=== PATIENT | female | born 1930 | race Caucasian/White ===

== ENCOUNTER 2016-06-25 10:24 | Inpatient (IN) | payer OTHER, BC ==
[2016-06-25] MEDS ORDERED: morphine CARPU-JECT 4 MG/1 ML DISP.SYRIN IVPUSH ONE (10:59)
[2016-06-25] MEDS ORDERED: ONDANSETRON 4 MG/2 ML VIAL IVPUSH ONE (10:59)
[2016-06-25 11:17] LABS: BASOPHIL 0.7 % (0-2.0); EOSINOPHIL 0.4 % (0-4.5); MCH 33.5 pg (25.7-33.7); MCHC 33.3 g/dl (32.0-36.0); MEAN CELL VOLUME 100.6 fl (80-96); MEAN PLT VOLUME 8.2 fl (7.5-11.1); NEUTROPHILS 80.5 % (42.8-82.8); PLATELET COUNT 136 K/MM3 (134-434); RDW 14.7 % (11.6-15.6); WHITE BLOOD COUNT 11.5 K/mm3 (4.0-10.0)
[2016-06-25] MEDS ORDERED: morphine CARPU-JECT 4 MG/1 ML DISP.SYRIN ONE ×2 (11:20→15:47)
[2016-06-25] MEDS ORDERED: ONDANSETRON 4 MG/2 ML VIAL ONE (11:21)
[2016-06-25 11:24] LABS: URINE APPEARANCE SLCLOUDY; URINE BILIRUBIN NEGATIVE (NEGATIVE); URINE BLOOD NEGATIVE (NEGATIVE); URINE COLOR YELLOW; URINE GLUCOSE (UA) NEGATIVE (NEGATIVE); URINE KETONE NEGATIVE (NEGATIVE); URINE LEUK ESTERASE NEGATIVE (NEGATIVE); URINE NITRITE NEGATIVE (NEGATIVE); URINE UROBILINOGEN NEGATIVE E.U./dl (0.2-1.0)
[2016-06-25 11:27] LABS: URINE PROTEIN 3+ (NEGATIVE)
[2016-06-25 11:32] LABS: GRANULAR CASTS 1 /lpf; URINE HYALINE CAST 4 /lpf; URINE MUCUS RARE; URINE RBC 2 /hpf (0-3); URINE WBC 3 /hpf (3-5)
[2016-06-25 11:32] LABS: INR 1.12 (0.82-1.09); PROTHROMBIN TIME (PATIENT) 12.4 SEC (9.98-11.88)
[2016-06-25 11:44] LABS: CREATININE 1.6 mg/dL (0.55-1.02)
[2016-06-25 11:45] LABS: ALBUMIN 3.9 g/dl (3.4-5.0); BILIRUBIN,TOTAL 0.8 mg/dL (0.2-1.0); CALCIUM 8.7 mg/dL (8.5-10.1); TOT PROT 7.8 g/dl (6.4-8.2)
--- NOTE | 2016-06-25 12:24 | PDOC ---
History of Present Illness - General History Source: Patient Exam Limitations: No Limitations - History of Present Illness Initial Comments: 06/25/16 12:25 The pt is an 83 y/o female with a significant PMHx of ASHD, s/p PCI with (3) stents hypothyroidism, hypercholesterolemia, and HTN who presents to the ED s/p mechanical fall with left leg pain. As per son the patient did not answer the door this morning when he rang, once he came into the house she was complaining of left sided pain near the hip or femur. As per patient she is complaining of left leg pain. She states that she is unable to move her left leg or move the left foot. She denies any LOC or head trauma. As per son the patient was supposed to be taken of Plavix but he is unsure if she is still taking it. Allergies: penicillins Social hx: former smoker (quit 15 year ago), no alcohol use, no illicit drug use. PCP - Dr. Torres <Freida Dooley - Last Filed: 06/25/16 13:07> <Tuan Cagle - Last Filed: 08/07/16 09:51> - General Chief Complaint: Injury Stated Complaint: FALL Time Seen by Provider: 06/25/16 10:55 Past History <Freida Dooley - Last Filed: 06/25/16 13:07> - Past Medical History Anemia: Yes Cardiac Disorders: Yes HTN: Yes Hypercholesterolemia: Yes Thyroid Disease: Yes (hypothyroidism) - Surgical History Appendectomy: Yes Cardiac Surgery: Yes (stents x 3) - Immunization History Immunization Up to Date: Yes - Psycho/Social/Smoking Cessation Hx Anxiety: No Suicidal Ideation: No Smoking Status: No Smoking History: Never smoked Have you smoked in the past 12 months: No Number of Cigarettes Smoked Daily: 0 Hx Alcohol Use: No Drug/Substance Use Hx: No Substance Use Type: None Hx Substance Use Treatment: No <Tuan Cagle - Last Filed: 08/07/16 09:51> - Past Medical History Allergies/Adverse Reactions: Allergies Allergy/AdvReac Type Severity Reaction Status Date / Time Penicillins Allergy Verified 06/25/16 10:39 Home Medications: Ambulatory Orders Acetaminophen [Tylenol .Regular Strength -] 650 mg PO Q6H PRN #0 tablet Aspirin Coated [Ecotrin -] 81 mg PO DAILY tablet.ec 07/04/16 Calcium 500Mg/Vit-D 200 Units [Os-Yvon 500+D -] 1 tab PO BID tab 07/04/16 Docusate Sodium [Colace -] 100 mg PO TID capsule 07/04/16 Enoxaparin [Lovenox -] 40 mg SQ DAILY disp.syrin 07/04/16 Ferrous Sulfate [Feosol] 325 mg PO BID ud 07/04/16 Magnesium Hydrox 2400MG/30Ml [Milk of Magnesia -] 30 ml PO DAILY PRN #0 cup Metoprolol Succinate [Toprol XL -] 50 mg PO DAILY tab.sr.24h 07/04/16 Oxycodone HCl [Roxicodone -] 5 mg PO Q6H PRN #60 tablet MDD 4 07/04/16 Rosuvastatin [Crestor -] 10 mg PO HS tablet 07/04/16 Review of Systems - Review of Systems Able to Perform ROS?: Yes Comments:: 06/25/16 12:25 GENERAL/CONSTITUTIONAL: No fever or chills. No weakness. HEAD, EYES, EARS, NOSE AND THROAT: No change in vision. No ear pain or discharge. No sore throat. CARDIOVASCULAR: No chest pain or shortness of breath. RESPIRATORY: No cough, wheezing, or hemoptysis. GASTROINTESTINAL: No nausea, vomiting, diarrhea or constipation. GENITOURINARY: No dysuria, frequency, or change in urination. MUSCULOSKELETAL: +left hip pain. No joint or muscle swelling or pain. No neck or back pain. SKIN: No rash NEUROLOGIC: No headache, vertigo, loss of consciousness, or change in strength/ sensation. ENDOCRINE: No increased thirst. No abnormal weight change. HEMATOLOGIC/LYMPHATIC: No anemia, easy bleeding, or history of blood clots. ALLERGIC/IMMUNOLOGIC: No hives or skin allergy. <Freida Dooley - Last Filed: 06/25/16 13:07> *Physical Exam - Vital Signs Last Vital Signs Temp Pulse Resp BP Pulse Ox 98.7 F 76 18 137/82 94 L 06/25/16 10:44 06/25/16 10:44 06/25/16 10:44 06/25/16 10:44 06/25/16 10:44 - Physical Exam Comments: 06/25/16 12:25 GENERAL: Awake, alert, and fully oriented, in no acute distress HEAD: No signs of trauma EYES: PERRLA, EOMI, sclera anicteric, conjunctiva clear ENT: Auricles normal inspection, hearing grossly normal, nares patent, oropharynx clear without exudates. Moist mucosa NECK: Normal ROM, supple, no lymphadenopathy, JVD, or masses LUNGS: Breath sounds equal, clear to auscultation bilaterally. No wheezes, and no crackles HEART: Regular rate and rhythm, normal S1 and S2, no murmurs, rubs or gallops ABDOMEN: Soft, nontender, normoactive bowel sounds. No guarding, no rebound. No masses EXTREMITIES: +Decreased ROM of the LLE. +tenderness on palpation over the left hip. Normal range of motion of the RLE, no edema. No clubbing or cyanosis. No cords, erythema NEUROLOGICAL: Cranial nerves II through XII grossly intact. Normal speech, normal gait SKIN: Warm, Dry, normal turgor, no rashes or lesions noted. <Freida Dooley - Last Filed: 06/25/16 13:07> - Vital Signs Last Vital Signs Temp Pulse Resp BP Pulse Ox 98.7 F 76 18 137/82 94 L 06/25/16 10:44 06/25/16 10:44 06/25/16 10:44 06/25/16 10:44 06/25/16 10:44 <Tuan Cagle - Last Filed: 08/07/16 09:51> Heart Score/ECG Review #1 06/25/16 12:[address] Cagle Impression: Normal sinus rhythm Normal rate Normal axis Normal EKG Vent rate 73 bpm <Freida Dooley - Last Filed: 06/25/16 13:07> ED Treatment Course - LABORATORY CBC & Chemistry Diagram: 06/25/16 11:10 06/25/16 11:10 - ADDITIONAL ORDERS Additional order review: Laboratory Results 06/25/16 06/25/16 06/25/16 11:10 11:10 11:10 INR 1.12 Sodium 144 Potassium 3.8 Chloride 106 Carbon Dioxide 21 Anion Gap 17 H BUN 34 H Creatinine 1.6 H Creat Clearance w eGFR 30.63 Random Glucose 130 H D Calcium 8.7 Total Bilirubin 0.8 AST 26 D ALT 20 D Alkaline Phosphatase 79 Total Protein 7.8 Albumin 3.9 D Urine Color Urine Appearance Urine pH Ur Specific [place] Urine Protein Urine Glucose (UA) Urine Ketones Urine Blood Urine Nitrite Urine Bilirubin Urine Urobilinogen Ur Leukocyte Esterase Urine RBC Urine WBC Amorphous Urates Hyaline Casts Granular Casts Urine Mucus Blood Type O POSITIVE Antibody Screen Negative 06/25/16 10:47 INR Sodium Potassium Chloride Carbon Dioxide Anion Gap BUN Creatinine Creat Clearance w eGFR Random Glucose Calcium Total Bilirubin AST ALT Alkaline Phosphatase Total Protein Albumin Urine Color Yellow Urine Appearance Slcloudy Urine pH 5.0 Ur Specific [place] 1.017 Urine Protein 3+ H D Urine Glucose (UA) Negative Urine Ketones Negative Urine Blood Negative Urine Nitrite Negative Urine Bilirubin Negative Urine Urobilinogen Negative Ur Leukocyte Esterase Negative Urine RBC 2 Urine WBC 3 Amorphous Urates Few Hyaline Casts 4 Granular Casts 1 Urine Mucus Rare Blood Type Antibody Screen 06/25/16 11:10 RBC 3.18 L MCV 100.6 H MCHC 33.3 RDW 14.7 MPV 8.2 Neutrophils % 80.5 D Lymphocytes % 14.3 D Monocytes % 4.1 Eosinophils % 0.4 D Basophils % 0.7 - Medications Given in the ED: ED Medications Discontinued Medications Generic Name Dose Route Start Last Admin Trade Name Freq PRN Reason Stop Dose Admin Morphine Sulfate 4 mg 06/25/16 10:59 06/25/16 11:28 Morphine Injection - IVPUSH 06/25/16 11:00 4 mg ONCE ONE Administration Ondansetron HCl 4 mg 06/25/16 10:59 06/25/16 11:28 Zofran Injection IVPUSH 06/25/16 11:00 4 mg ONCE ONE Administration <Freida Dooley - Last Filed: 06/25/16 13:07> - LABORATORY CBC & Chemistry Diagram: 07/04/16 05:38 07/04/16 05:38 - ADDITIONAL ORDERS Additional order review: Laboratory Results 06/25/16 06/25/16 06/25/16 11:10 11:10 11:10 INR 1.12 Sodium 144 Potassium 3.8 Chloride 106 Carbon Dioxide 21 Anion Gap 17 H BUN 34 H Creatinine 1.6 H Creat Clearance w eGFR 30.63 Random Glucose 130 H D Calcium 8.7 Total Bilirubin 0.8 AST 26 D ALT 20 D Alkaline Phosphatase 79 Total Protein 7.8 Albumin 3.9 D Urine Color Urine Appearance Urine pH Ur Specific [place] Urine Protein Urine Glucose (UA) Urine Ketones Urine Blood Urine Nitrite Urine Bilirubin Urine Urobilinogen Ur Leukocyte Esterase Urine RBC Urine WBC Amorphous Urates Hyaline Casts Granular Casts Urine Mucus Blood Type O POSITIVE Antibody Screen Negative 06/25/16 10:47 INR Sodium Potassium Chloride Carbon Dioxide Anion Gap BUN Creatinine Creat Clearance w eGFR Random Glucose Calcium Total Bilirubin AST ALT Alkaline Phosphatase Total Protein Albumin Urine Color Yellow Urine Appearance Slcloudy Urine pH 5.0 Ur Specific [place] 1.017 Urine Protein 3+ H D Urine Glucose (UA) Negative Urine Ketones Negative Urine Blood Negative Urine Nitrite Negative Urine Bilirubin Negative Urine Urobilinogen Negative Ur Leukocyte Esterase Negative Urine RBC 2 Urine WBC 3 Amorphous Urates Few Hyaline Casts 4 Granular Casts 1 Urine Mucus Rare Blood Type Antibody Screen 06/25/16 11:10 RBC 3.18 L MCV 100.6 H MCHC 33.3 RDW 14.7 MPV 8.2 Neutrophils % 80.5 D Lymphocytes % 14.3 D Monocytes % 4.1 Eosinophils % 0.4 D Basophils % 0.7 - RADIOLOGY Radiology Studies Ordered: Category Date Time Status CHEST PA & LAT [RAD] Stat Radiology 06/25/16 10:47 Completed HIP & PELVIS-LEFT [RAD] Stat Radiology 06/25/16 10:49 Completed - Medications Given in the ED: ED Medications Discontinued Medications Generic Name Dose Route Start Last Admin Trade Name Freq PRN Reason Stop Dose Admin Morphine Sulfate 4 mg 06/25/16 10:59 06/25/16 11:28 Morphine Injection - IVPUSH 06/25/16 11:00 4 mg ONCE ONE Administration Ondansetron HCl 4 mg 06/25/16 10:59 06/25/16 11:28 Zofran Injection IVPUSH 06/25/16 11:00 4 mg ONCE ONE Administration <Tuan Cagle - Last Filed: 08/07/16 09:51> Medical Decision Making - Medical Decision Making 06/25/16 12:26 Patient is a 83 year old female with pmhx of ASHD, s/p PCI with (3) stents hypothyroidism, hypercholesterolemia, and HTN who presents to the ED with left hip pain. Will order hip XRAY, CXR, type and screen, blood work with INR, EKG. Will reassess. Contacted [facility], case discussed with Dr. Cook. 06/25/16 12:40 A call was placed to Dr. Arnaldo Torres. Case was discussed. Dr. Torres noted that he has not seen the patient since 2014, but will be happy to admit the patient to the [facility] and asked that Dr. Harman is contacted. 06/25/16 13:03 Dr. Harman was contacted at his office. Case was discussed. As per Dr. Harman, he notes that the patient has history of hypertension, 3 stents, and hld. He notes that he has not seen the patient for a year since she has been house bound. As per Dr. Harman, he feels that she can go to surgery today and does not need any special clearance since her labs and EKG was normal. <Freida Dooley - Last Filed: 06/25/16 13:07> *DC/Admit/Observation/Transfer <Freida Dooley - Last Filed: 06/25/16 13:07> - Attestations Physician Attestion: 06/25/16 12:24 I, Dr. Tuan Cagle, attest that this document has been prepared under my direction and personally reviewed by me in its entirety. I further attest, that it accurately reflects all work, treatment, procedures and medical decision -making performed by me. <Tuan Cagle - Last Filed: 08/07/16 09:51> Diagnosis at time of Disposition: admissions Fracture of left hip Qualifiers: Encounter type: initial encounter Fracture type: closed Qualified Code(s): S72.002A - Fracture of unspecified part of neck of left femur, initial encounter for closed fracture - Discharge Dispostion Disposition: [facility] FACILITY Condition at time of disposition: Fair - Referrals
[2016-06-25] MEDS ORDERED: ONDANSETRON 4 MG/2 ML VIAL IVPB PRN (14:46)
[2016-06-25] MEDS ORDERED: DEXTROSE 5%-NORMAL SALINE 1,000 ML IV SCH (15:00)
[2016-06-25 15:30] VITALS: BMI 21.2
--- NOTE | 2016-06-25 16:05 | CON.CARD ---
Cardiology Consult (text) - Consultation Consultation Note: cc: fracture hpi: 85 f hx htn, hld, hypothyroid, ckd, cad s/p 4 pci's (last was approx > 5 yrs ago), here with LE fracture. Patient states she had mechanical fall. Remembers event, no presyncope/ syncope. Poor functional status. Patient no longer able to walk up stairs in home 2/2 OA /pain and weakness. Walks from one room to the next without symptoms. No cp, angina, sob, palps, dizzy, loc, pnd, orthopnea, + chronic LE edema, stable. Denies h/o DM, CVA/TIA, CHF. cardio: Dr. Harman pmh: per hpi psh: non contrib social: no tobacco, etoh or illicits. ros: per hpi. additionally no f/c/s, n/v/d, h/a, cough, congestion, rashes. fam: non contrib meds: Ambulatory Orders Rosuvastatin Calcium [Crestor] 10 mg PO DAILY 05/09/12 Nifedipine ER [Procardia XL -] 60 mg PO DAILY #30 tab.er.24 04/18/14 Furosemide [Lasix] 80 mg PO DAILY 06/25/16 Metoprolol Tartrate [Lopressor -] 50 mg PO DAILY 06/25/16 Potassium Chloride 20 meq PO DAILY 06/25/16 Current Medications Dextrose/Sodium Chloride (D5-Ns -) 1,000 mls @ 65 mls/hr IV ASDIR TYLER Morphine Sulfate (Morphine Injection -) 4 mg IVPUSH Q3H PRN PRN Reason: PAIN Ondansetron HCl (Zofran Injection) 4 mg IVPB Q8H PRN PRN Reason: NAUSEA Vital Signs - 24 hr 06/25/16 06/25/16 10:44 15:05 Temperature 98.7 F Pulse Rate 76 77 Respiratory 18 18 Rate Blood Pressure 137/82 145/69 O2 Sat by Pulse 94 L Oximetry (%) Intake & Output 06/23/16 06/24/16 06/25/16 06/26/16 07:59 07:59 07:59 07:59 Output Total 150 Balance -150 Weight 120 lb nad, calm no jvd rrr s1 s2 2/6 murmur at usb cta b/l, nl eff aaox3 trace le edema. no c/c abd nt nd pos bs pos dp/pt, no carotid bruits no diaphoresis/jaundice CBC, BMP 06/25/16 11:10 06/25/16 11:10 Laboratory Tests 04/18/14 06/25/16 06/25/16 06:00 11:10 11:10 INR 1.12 Creatinine 1.7 H Total Bilirubin 0.8 AST 26 D ALT 20 D Alkaline Phosphatase 79 Albumin 3.9 D cxr: clear lungs ec04/16/14: nsr, nl intervals, non-specific t wave flattening in inferior and lateral leads in comparison to priors. a/p: 85 f hx htn, hld, hypothyroid, ckd, cad s/p 4 pci's (last was approx > 5 yrs ago ), here with LE fracture. Intertrochanteric fracture/Pre-operative clearance - No active cardiac issues/sx's. Murmur at sternal border, but no signs of symptomatic or decompensated valvular disease. No further CV testing needed prior to surgery. RCRI 1, but with low functional capacity. Patient with low- intermediate risk of CV complications. Patient counseled on risk. - Con't ASA if possible drake-operatively, but ok to hold if needed. - Patient on lasix 80 mg/day as outpatient. Minimize IVF when possible. Close monitoring of volume status and reevaluation of need to resume po lasix. daily weights, bmp. cad s/p remote pci: - No signs of acs, no angina. - ASA if safe per surgery. htn: - bp well controlled off of anti-hypertensives. Con't to monitor. If bp elevated would reinitiate metoprolol first hld: - con't outpatient crestor.
[2016-06-25] MEDS: morphine CARPU-JECT 4 MG/1 ML DISP.SYRIN IVPUSH PRN ×2 (16:20→21:39)
--- NOTE | 2016-06-25 20:14 | HP ---
Admitting History and Physical - Primary Care Physician PCP: Arnaldo Torres - Admission Chief Complaint: Left hip pain History of Present Illness: Pt came to ER with left hip pain. Pt states that was walking out from the bathroom and fell, not sure why; pt states that had no CP, palpitations, dizziness, syncope before or after fall. After fall pt couldn't move secondary to pain; her son was home and brought her to ER where it was noticed to have left hip fracture. Pt was kept initially NPO for possible surgery; in the evening decision was made for surgery tomorrow. Pt didn't come to see me in the office for almost 2 years( she states that felt good and didn't the need to come to my office) but she saw Dr. Corey ( Cardio) every 3 to 4 months. - Past Medical History Cardiovascular: Yes: CAD (s/p PCI w stents), HTN, Hyperlipdemia Endocrine: Yes: Hypothyroidism - Smoking History Smoking history: Never smoked Have you smoked in the past 12 months: No Aproximately how many cigarettes per day: 0 - Alcohol/Substance Use Hx Alcohol Use: No Home Medications - Allergies Allergies/Adverse Reactions: Allergies Allergy/AdvReac Type Severity Reaction Status Date / Time Penicillins Allergy Verified 06/25/16 10:39 - Home Medications Home Medications: Ambulatory Orders RX: Rosuvastatin Calcium [Crestor] 10 mg PO DAILY 05/09/12 RX: Nifedipine ER [Procardia XL -] 60 mg PO DAILY #30 tab.er.24 04/18/14 Furosemide [Lasix] 80 mg PO DAILY 06/25/16 RX: Metoprolol Tartrate [Lopressor -] 50 mg PO DAILY 06/25/16 RX: Potassium Chloride 20 meq PO DAILY 06/25/16 Review of Systems - Review of Systems Constitutional: denies: Chills, Fever, Night Sweats, Weakness Eyes: denies: Blind Spots, Blurred Vision, Double Vision HENT: denies: Ear Discharge, Nasal Congestion, Throat Pain Neck: denies: Pain on Movement, Stiffness Cardiovascular: denies: Chest Pain, Edema, Palpitations, Shortness of Breath Respiratory: denies: Cough, SOB, Wheezing Gastrointestinal: denies: Abdominal Pain, Constipation, Diarrhea, Nausea, Vomiting Genitourinary: denies: Burning, Discharge, Dysuria, Frequency Musculoskeletal: reports: Extremity Pain (left leg). denies: Back Pain Neurological: denies: Change in LOC, Dizziness, Headache, Numbness, Parasthesia Endocrine: denies: Excessive Sweating, Intolerance to Cold Hematology/Lymphatic: denies: Easily Bruised, Excessive Bleeding Psychiatric: denies: Anxiety, Depression Physical Examination Vital Signs: Vital Signs Temperature 98.1 F 06/25/16 17:10 Pulse Rate 78 06/25/16 19:40 Respiratory Rate 18 06/25/16 19:40 Blood Pressure 142/71 06/25/16 19:40 O2 Sat by Pulse Oximetry (%) 96 06/25/16 19:40 Constitutional: No: No Distress, Calm, Mild Distress Eyes: No: Conjunctiva Clear, EOM Intact, PERRL HENT: No: Drooling, Pharyngeal Erythema, Rhinnorhea Neck: No: Trachea Midline, Lymphadenopathy Cardiovascular: Yes: Murmur. No: Regular Rate and Rhythm, S1, S2 Respiratory: Yes: Regular, Rales (scaterred, maily at bases). No: Wheezes Gastrointestinal: Yes: Soft. No: Normal Bowel Sounds, Hepatomegaly, Palpable Mass, Tenderness ...Rectal Exam: Yes: Deferred Breast(s): Yes: Other (deffered) Musculoskeletal: Yes: Other (Left leg is flexed and internal rotated, cannot moveit secondary to pain.). No: Back Pain Edema: Yes Edema: LLE: Trace, RLE: Trace Integumentary: No: Rash, Skin Tear Neurological: Yes: Alert, Oriented, Other (motor and sensory is symmetric in UE / LE/ Face) Psychiatric: Yes: Alert, Oriented Imaging - Results Chest X-ray: Report Reviewed X-ray: Report Reviewed Problem List - Problems (1) Fracture of hip, left, closed Assessment/Plan: Ortho consult Cardio consult for clearance. Code(s): S72.002A - FRACTURE OF UNSP PART OF NECK OF LEFT FEMUR, INIT (2) CAD S/P percutaneous coronary angioplasty Assessment/Plan: s/p PCI with stents. Cardio consult for clearance Code(s): I25.10 - ATHSCL HEART DISEASE OF [place] CORONARY ARTERY W/O ANG PCTRS Z98.61 - CORONARY ANGIOPLASTY STATUS (3) HTN (hypertension) Assessment/Plan: cont meds Code(s): I10 - ESSENTIAL (PRIMARY) HYPERTENSION (4) Hyperlipidemia Assessment/Plan: cont meds Code(s): E78.5 - HYPERLIPIDEMIA, UNSPECIFIED (5) Renal artery stenosis Assessment/Plan: s/p stenting Code(s): I70.1 - ATHEROSCLEROSIS OF RENAL ARTERY Assessment/Plan AM labs
[2016-06-25] MEDS ORDERED: ROSUVASTATIN CA 10 MG TABLET (FP) PO SCH (22:00)
--- NOTE | 2016-06-26 00:22 | EKG ---
Test Reason : Blood Pressure : / mmHG Vent. Rate : 073 BPM Atrial Rate : 073 BPM P-R Int : 164 ms QRS Dur : 078 ms QT Int : 384 ms P-R-T Axes : 034 046 101 degrees QTc Int : 423 ms NORMAL SINUS RHYTHM CANNOT RULE OUT ANTERIOR INFARCT , AGE UNDETERMINED ABNORMAL ECG WHEN COMPARED WITH ECG OF 16-APR-2014 20:13, T WAVE VARIATION Confirmed by JOHN SEPULVEDA MD ([id number]) on 06/26/2016 12:22:09 AM Referred By: Confirmed By:JOHN SEPULVEDA MD
[2016-06-26 07:34] LABS: MCH 34.3 pg (25.7-33.7); MCHC 33.9 g/dl (32.0-36.0); MEAN CELL VOLUME 101.1 fl (80-96); MEAN PLT VOLUME 8.5 fl (7.5-11.1); PLATELET COUNT 100 K/MM3 (134-434); RDW 14.8 % (11.6-15.6); WHITE BLOOD COUNT 6.7 K/mm3 (4.0-10.0)
--- NOTE | 2016-06-26 07:43 | CON.ORTH ---
Consult Consult Specialty:: orthopedics Referred by:: ER Reason for Consultation:: Left hip pain - History of Present Illness Chief Complaint: Left hip pain History of Present Illness: 85y F c/o L hip pain after fall -states she just fell over, no syncopal symptoms -cannot move -BIBEMS to ER -no pain elsewhere -no radicular symptoms -no previous injuries to this hip -pain worse with any motion -improved at rest - History Source History Provided By: Patient, Medical Record Limitations to Obtaining History: No Limitations - Past Medical History Cardio/Vascular: Yes: CAD (s/p PCI w stents), HTN, Hyperlipdemia Endocrine: Yes: Hypothyroidism - Alcohol/Substance Use Hx Alcohol Use: No - Smoking History Smoking history: Never smoked Have you smoked in the past 12 months: No Aproximately how many cigarettes per day: 0 Home Medications - Allergies Allergies/Adverse Reactions: Allergies Allergy/AdvReac Type Severity Reaction Status Date / Time Penicillins Allergy Verified 06/25/16 10:39 - Home Medications Home Medications: Ambulatory Orders Rosuvastatin Calcium [Crestor] 10 mg PO DAILY 05/09/12 Nifedipine ER [Procardia XL -] 60 mg PO DAILY #30 tab.er.24 04/18/14 Furosemide [Lasix] 80 mg PO DAILY 06/25/16 Metoprolol Tartrate [Lopressor -] 50 mg PO DAILY 06/25/16 Potassium Chloride 20 meq PO DAILY 06/25/16 Physical Exam for Ortho Vital Signs: Vital Signs Temperature 98.1 F 06/26/16 06:00 Pulse Rate 75 06/26/16 06:00 Respiratory Rate 18 06/26/16 06:00 Blood Pressure 137/63 06/26/16 06:00 O2 Sat by Pulse Oximetry (%) 96 06/25/16 21:00 Constitutional: Yes: Well Nourished, No Distress, Calm Cardiovascular: Yes: Regular Rate and Rhythm Respiratory: Yes: Regular Extremities: No: Calf Tenderness, Cold, Cool, Cyanosis Integumentary: Yes: WNL Neurological: Yes: Alert, Oriented Labs: INR, PTT INR 1.12 (0.82-1.09) 06/25/16 11:10 - Lower Extremity Hip: Yes: Left, Leg Externally Rotated, Leg Shortened, Pain. No: Swelling Knee: Yes: Left. No: Pain, Swelling, Tenderness Ankle: Yes: Left. No: Pain, Swelling, Tenderness - Affected Extremity Motor Strength: 5/5: Left Leg (ehl fhl ta g s) Peripheral Pulses: 1+ Left Doralis Pedis Neuro/Vascular Assessment: Yes: Warm, [place], Normal Sensation Imaging - Results X-ray: Report Reviewed, Image Reviewed (Displaced L IT fx) Problem List - Problems (1) Fracture of hip, left, closed Code(s): S72.002A - FRACTURE OF UNSP PART OF NECK OF LEFT FEMUR, INIT Qualifiers: Encounter type: initial encounter Qualified Code(s): S72.002A - Fracture of unspecified part of neck of left femur, initial encounter for closed fracture Assessment/Plan I reviewed today's findings with the pt -advised she has a displaced hip fx -reviewed option nonop care: bedrest, bedsores, PNA, DVT, deformity, unlikely to walk again -recommend op care with IM nail -op risks reviewed: bleeding, infection, neurovascular injury, need for further surgery, post op pain, stiffness, malunion, nonunion, hardware failure or cutout , heart attack, stroke, DVT, PE, and more -reviewed periop use of abx, DVT proph, PT -addressed pts questions -electing to proceed -will be scheduled for tomorrow
[2016-06-26 07:56] LABS: CALCIUM 8.7 mg/dL (8.5-10.1); CREATININE 1.4 mg/dL (0.55-1.02)
[2016-06-26] MEDS ORDERED: NIFEdipine E.R 60 MG TABLET (UD) PO SCH (10:00)
[2016-06-26] MEDS ORDERED: METOPROLOL TARTRATE 50 MG TABLET (FP) PO SCH (10:00)
[2016-06-26] MEDS ORDERED: FUROSEMIDE 40 MG TABLET (FP) PO SCH (10:00)
[2016-06-26] MEDS ORDERED: POTASSIUM CHLORIDE TABS 20 MEQ TABLET.ER (FP) PO SCH (10:00)
--- NOTE | 2016-06-26 10:02 | PN ---
Progress Note, Physician History of Present Illness: Pt. w/o CP, SOB, palp., dizziness; pt' left leg pain 05/29 - Current Medication List Current Medications: Active Medications Furosemide (Lasix -) 80 mg PO DAILY [facility] Last Admin: 06/26/16 09:19 Dose: Not Given Metoprolol Tartrate (Lopressor -) 50 mg PO DAILY [facility] Last Admin: 06/26/16 09:21 Dose: 50 mg Morphine Sulfate (Morphine Injection -) 4 mg IVPUSH Q3H PRN PRN Reason: PAIN Last Admin: 06/25/16 21:39 Dose: 4 mg Nifedipine (Procardia Xl -) 60 mg PO DAILY [facility] Last Admin: 06/26/16 09:19 Dose: Not Given Ondansetron HCl (Zofran Injection) 4 mg IVPB Q8H PRN PRN Reason: NAUSEA Potassium Chloride (K-Dur -) 20 meq PO DAILY [facility] Last Admin: 06/26/16 09:19 Dose: Not Given Rosuvastatin Calcium (Crestor -) 10 mg PO HS [facility] Last Admin: 06/25/16 21:37 Dose: 10 mg - Objective Vital Signs: Vital Signs Temperature 98.1 F 06/26/16 06:00 Pulse Rate 75 06/26/16 06:00 Respiratory Rate 18 06/26/16 06:00 Blood Pressure 137/63 06/26/16 06:00 O2 Sat by Pulse Oximetry (%) 96 06/25/16 21:00 Constitutional: Yes: No Distress, Calm Cardiovascular: Yes: Regular Rate and Rhythm, S1, S2 Respiratory: Yes: Regular, CTA Bilaterally. No: Rales Gastrointestinal: Yes: Normal Bowel Sounds, Soft. No: Palpable Mass, Tenderness Edema: No Neurological: Yes: Alert, Oriented Labs: CBC, BMP 06/26/16 05:35 06/26/16 05:35 INR, PTT INR 1.12 (0.82-1.09) 06/25/16 11:10 Problem List - Problems (1) Fracture of hip, left, closed Assessment/Plan: Fracture secondary to fall- mechanical cause Ortho consult appreciated, for OR this afternoon Cardio consult appreciated. Code(s): S72.002A - FRACTURE OF UNSP PART OF NECK OF LEFT FEMUR, INIT Qualifiers: Encounter type: initial encounter Qualified Code(s): S72.002A - Fracture of unspecified part of neck of left femur, initial encounter for closed fracture (2) CAD S/P percutaneous coronary angioplasty Assessment/Plan: s/p PCI with stents. Cardio consult appreciated, pt was cleared for hip replacement. Code(s): I25.10 - ATHSCL HEART DISEASE OF [place] CORONARY ARTERY W/O ANG PCTRS Z98.61 - CORONARY ANGIOPLASTY STATUS (3) HTN (hypertension) Assessment/Plan: cont meds. controlled. Code(s): I10 - ESSENTIAL (PRIMARY) HYPERTENSION (4) Hyperlipidemia Assessment/Plan: on statin Code(s): E78.5 - HYPERLIPIDEMIA, UNSPECIFIED (5) Renal artery stenosis Assessment/Plan: s/p stent placement Code(s): I70.1 - ATHEROSCLEROSIS OF RENAL ARTERY (6) Chronic renal disease Code(s): N18.9 - CHRONIC KIDNEY DISEASE, UNSPECIFIED (7) Anemia Assessment/Plan: to monitor H/H Code(s): D64.9 - ANEMIA, UNSPECIFIED Assessment/Plan Pt.'s condition was reviewed with pt.'s son, all questions were reviewed. Pt is cleared for hip replacement. IVF while pt is NPO AM labs
[2016-06-26] MEDS ORDERED: DEXTROSE 5%-NORMAL SALINE 1,000 ML IV SCH ×2 (10:15→19:21)
[2016-06-26] MEDS ORDERED: MIDAZOLAM HCL 2 MG/2 ML SINGLE DOSE VIAL ONE ×2 (16:49)
[2016-06-26] MEDS ORDERED: ceFAZolin SODIUM 1 GM VIAL ONE (17:28)
[2016-06-26] MEDS ORDERED: ceFAZolin SODIUM 1 GM VIAL IVPB ONE (17:30)
[2016-06-26] MEDS ORDERED: MAGNESIUM HYDROX 2400MG/30ML ORAL SUSPENSION 30 ML CUP PO PRN (19:01)
[2016-06-26] MEDS ORDERED: OXYCODONE/APAP 5/325MG COMBO TABLET PO PRN (19:01)
--- NOTE | 2016-06-26 19:07 | OP ---
Operative Note - Note: Operative Date: 06/26/16 Pre-Operative Diagnosis: L IT Fx Operation: left hip intramedullary nail Implants: [employer]cted gamma 3 [id number], 105mm lag bolt, 2x 5mm distal locking bolts Surgeon: Dorian Cook Poultry Helper: Kateryna Gaines Anesthesiologist/WOOD INSPECTOR: Maria Luz Cole Anesthesia: Spinal Estimated Blood Loss (mls): 200 Operative Report Dictated: Yes
[2016-06-26] MEDS ORDERED: ONDANSETRON 4 MG/2 ML VIAL IVPB PRN (19:21)
[2016-06-26] MEDS ORDERED: morphine CARPU-JECT 2 MG/1 ML DISP.SYRIN IVPUSH PRN (19:21)
[2016-06-26 20:05] LABS: MCH 33.5 pg (25.7-33.7); MCHC 33.1 g/dl (32.0-36.0); MEAN CELL VOLUME 101.4 fl (80-96); MEAN PLT VOLUME 8.7 fl (7.5-11.1); PLATELET COUNT 105 K/MM3 (134-434); RDW 14.5 % (11.6-15.6); WHITE BLOOD COUNT 7.4 K/mm3 (4.0-10.0)
--- NOTE | 2016-06-26 20:53 | OP ---
DATE OF OPERATION: 06/26/2016 PREOPERATIVE DIAGNOSIS: Left intertrochanteric hip fracture. POSTOPERATIVE DIAGNOSIS: Left intertrochanteric hip fracture. PROCEDURE: Left intertrochanteric nailing. SURGEON: Dorian Cook MD SOX ANALYST: Kateryna Gaines PA-C. Her skilled surgical assistance was necessary for the safety and timely performance of this procedure. Ms. Gaines was able to provide retraction, assist in the insertion of orthopedic hardware, positioning of the patient, and reduction of the fracture. IMPLANT: Maribeth Gamma nail 380 x 10, 125-degree with 105-mm proximal lag bolt and 5-mm distal locking bolts. BLOOD LOSS: 200 mL. POSTOPERATIVE CONDITION: Stable. COMPLICATIONS: None. INDICATIONS: This is a pleasant woman who suffered a fall. She was medically optimized and quick for surgery. Prior to surgery, the risks, benefits, and alternatives were discussed in detail. The alternative of nonoperative management of prolonged bed rest was discussed and this may lead to multiple medical complications. Recommended is operative management with intramedullary nail. This would involve risks of bleeding, infection, neurovascular injury, need for further surgery, postoperative pain and stiffness, nonunion, malunion, hardware failure with cut out. We discussed medical risks such as heart attack, stroke, DVT, PE, or . I addressed the patient's and family's questions. They voiced their understanding and elected to proceed. PROCEDURE: The patient was brought to the operating room where spinal anesthesia was administered. She was placed onto the fracture table and carefully padded all bony prominences. The left lower extremity was then positioned in a position of adduction, internal rotation, and traction. Operative fluoroscopy radiographs demonstrated satisfactory reduction. Patient was prepped and draped in the usual sterile fashion. A preoperative dose of antibiotics was given. The usual timeout for the procedure was performed. At this point, a guidewire was placed percutaneously into the tip of the greater trochanter. The guidewire was advanced manually, noting that the bone was quite soft and did not require much resistance. The guidewire was placed into the anterior third and posterior two-thirds junction on lateral fluoroscopy and just medial to the greater trochanter on the AP. An incision was made about the guidewire. Soft tissue retractor was placed and the opening reamer was passed. The short guidewire was now removed. A long guidewire was now placed down the femoral shaft, to the level of the knee. The guidewire was measured and a 380-mm nail was chosen. The nail was once reamed using a size 11.5 reamer. The nail was now inserted down the femoral canal. Nail placement was confirmed fluoroscopically in 2 planes. The proximal jig was now lined up and small incision was made laterally. The trocar was passed down to the level of the bone. The guidewire was now passed somewhat inferiorly through the femoral neck and into the most central portion of the femoral neck as allowed by this nail. No 120-degree nails were available at this time. A satisfactory placement was achieved. The guidewire placement was verified in 2 planes fluoroscopically. The guidewire was now measured and then overreamed to 100 mm. The 105-mm lag bolt was chosen. The lag bolt was now inserted under fluoroscopic guidance. The set screw was placed and backed off a quarter-turn after tightening fully. The lag bolt was now toggled and was found to be locked into place with some toggle allowed. The entire construct was now examined fluoroscopically and was satisfactory. Attention was now turned distally. Here, perfect circles technique was used to locate the 2 distal holes. The skin was then incised over the holes. A drill bit was then used to make 2 passes through the bone. The more distal screw was placed first and the bone quality was extremely soft. Inadvertently, the medial skin was penetrated, but the skin had been prepped prior to the surgery. The drill bit was pulled out medially to ensure no contamination of the interior or the leg. A second drill bit was used to make a more proximal one. Both screws were then measured and inserted under fluoroscopic guidance in 2 planes. At this point, the entire construct was again examined fluoroscopically. Both fracture reduction and hardware placement were satisfactory. The wounds were irrigated. The deep tissue was approximated using 0 Vicryl. The subcutaneous tissue was approximated using 2-0 Vicryl. The skin was closed using 3-0 nylon. Sterile dressings were placed. The patient was transferred to the recovery room in stable condition. Bairon BANGURA/[id number]
[2016-06-26] MEDS: FERROUS SO4 325 MG TABLET (FP) PO SCH (22:02)
[2016-06-26] MEDS: DOCUSATE SODIUM 100 MG CAPSULE (FP) PO SCH (22:02)
[2016-06-26] MEDS: CALCIUM 500MG/VIT-D 200 UNITS COMBO TABLET (FP) PO SCH (22:02)
[2016-06-26] MEDS: ROSUVASTATIN CA 10 MG TABLET (FP) PO SCH (22:02)
[2016-06-27] MEDS: CEFAZOLIN (PRE-DOCKED) 50 ML IVPB SCH ×3 (01:35→18:23)
[2016-06-27] MEDS: DOCUSATE SODIUM 100 MG CAPSULE (FP) PO SCH ×3 (05:42→21:15)
[2016-06-27 07:39] LABS: MCH 29.8 pg (25.7-33.7); MCHC 33.4 g/dl (32.0-36.0); MEAN CELL VOLUME 89.4 fl (80-96); MEAN PLT VOLUME 8.4 fl (7.5-11.1); PLATELET COUNT 76 K/MM3 (134-434); RDW 27.5 % (11.6-15.6); WHITE BLOOD COUNT 8.1 K/mm3 (4.0-10.0)
[2016-06-27 08:08] LABS: CALCIUM 8.2 mg/dL (8.5-10.1); CREATININE 1.7 mg/dL (0.55-1.02)
[2016-06-27] MEDS: FUROSEMIDE 40 MG TABLET (FP) PO SCH (09:30)
--- NOTE | 2016-06-27 09:30 | PN ---
Progress Note, Physician History of Present Illness: Pt. w/o CP, SOB, palp., dizziness; pt' left groin pain with leg movements. Pt is s/p Left hip ORIF - Current Medication List Current Medications: Active Medications Acetaminophen (Tylenol -) 650 mg PO Q6H PRN PRN Reason: PAIN Acetaminophen (Tylenol -) 325 mg PO Q6H PRN PRN Reason: PAIN Calcium Carbonate/Cholecalciferol (Os-Yvon 500+D -) 1 tab PO BID [facility] Last Admin: 06/26/16 22:02 Dose: 1 tab Docusate Sodium (Colace -) 100 mg PO TID [facility] Last Admin: 06/27/16 05:42 Dose: 100 mg Enoxaparin Sodium (Lovenox -) 40 mg SQ DAILY [facility] Ferrous Sulfate (Feosol -) 325 mg PO BID [facility] Last Admin: 06/26/16 22:02 Dose: 325 mg Furosemide (Lasix -) 80 mg PO DAILY [facility] Cefazolin Sodium (Ancef 1gm Ivpb (Pre-Docked)) 50 mls @ 100 mls/hr IVPB Q8H-IV [facility] Stop: 06/28/16 00:59 Last Admin: 06/27/16 01:35 Dose: 100 mls/hr Dextrose/Sodium Chloride (D5-Ns -) 1,000 mls @ 42 mls/hr IV ASDIR [facility] Last Admin: 06/26/16 19:40 Dose: 42 mls/hr Magnesium Hydroxide (Milk Of Magnesia -) 30 ml PO DAILY PRN PRN Reason: CONSTIPATION Metoprolol Tartrate (Lopressor -) 50 mg PO DAILY [facility] Morphine Sulfate (Morphine Injection -) 2 mg IVPUSH Q3H PRN PRN Reason: PAIN Last Admin: 06/27/16 01:37 Dose: 2 mg Nifedipine (Procardia Xl -) 60 mg PO DAILY [facility] Ondansetron HCl (Zofran Injection) 4 mg IVPB Q8H PRN PRN Reason: NAUSEA Oxycodone HCl (Roxicodone -) 5 mg PO Q6H PRN PRN Reason: PAIN SCALE 1-5 Potassium Chloride (K-Dur -) 20 meq PO DAILY [facility] Rosuvastatin Calcium (Crestor -) 10 mg PO HS [facility] Last Admin: 06/26/16 22:02 Dose: 10 mg - Objective Vital Signs: Vital Signs Temperature 97.6 F 06/27/16 06:00 Pulse Rate 80 06/27/16 06:00 Respiratory Rate 20 06/27/16 06:00 Blood Pressure 113/55 06/27/16 06:00 O2 Sat by Pulse Oximetry (%) 98 06/26/16 21:05 Constitutional: Yes: No Distress, Calm Neck: Yes: Supple Cardiovascular: Yes: Regular Rate and Rhythm, S1, S2 Respiratory: Yes: Regular, Other (coarse at bases, atelectasis at bases) Gastrointestinal: Yes: Normal Bowel Sounds, Soft. No: Palpable Mass, Tenderness Edema: LLE: Trace Neurological: Yes: Alert, Oriented Labs: CBC, BMP 06/27/16 06:30 06/27/16 06:30 INR, PTT INR 1.12 (0.82-1.09) 06/25/16 11:10 Problem List - Problems (1) Fracture of hip, left, closed Assessment/Plan: Fracture secondary to fall- mechanical cause Ortho consult and f/u appreciated, s/p ORIF yesterday Cardio consult and f/u appreciated. Code(s): S72.002A - FRACTURE OF UNSP PART OF NECK OF LEFT FEMUR, INIT Qualifiers: Encounter type: initial encounter Qualified Code(s): S72.002A - Fracture of unspecified part of neck of left femur, initial encounter for closed fracture (2) CAD S/P percutaneous coronary angioplasty Assessment/Plan: s/p PCI with stents. Code(s): I25.10 - ATHSCL HEART DISEASE OF [place] CORONARY ARTERY W/O ANG PCTRS Z98.61 - CORONARY ANGIOPLASTY STATUS (3) HTN (hypertension) Assessment/Plan: cont meds. controlled. Code(s): I10 - ESSENTIAL (PRIMARY) HYPERTENSION (4) Hyperlipidemia Assessment/Plan: on statin Code(s): E78.5 - HYPERLIPIDEMIA, UNSPECIFIED (5) Renal artery stenosis Assessment/Plan: s/p stent placement Code(s): I70.1 - ATHEROSCLEROSIS OF RENAL ARTERY (6) Chronic renal disease Code(s): N18.9 - CHRONIC KIDNEY DISEASE, UNSPECIFIED (7) Anemia Assessment/Plan: to monitor H/H. Code(s): D64.9 - ANEMIA, UNSPECIFIED Assessment/Plan Pt.'s condition was d/w pt's nurse. Pt to restart PO intake; if tolerates PO to DC INIVF at noon AM labs
[2016-06-27] MEDS: FERROUS SO4 325 MG TABLET (FP) PO SCH ×2 (09:31→21:15)
[2016-06-27] MEDS: ENOXAPARIN NA (PORCINE) 40 MG/0.4 ML DISP.SYRIN SQ SCH (09:31)
[2016-06-27] MEDS: CALCIUM 500MG/VIT-D 200 UNITS COMBO TABLET (FP) PO SCH ×2 (09:31→21:15)
[2016-06-27] MEDS: NIFEdipine E.R 60 MG TABLET (UD) PO SCH (09:35)
[2016-06-27] MEDS ORDERED: PT OWN MED DRAWER 7, Y5N ONE (09:35)
[2016-06-27] MEDS ORDERED: POTASSIUM CHLORIDE TABS 20 MEQ TABLET.ER (FP) PO SCH (10:00)
[2016-06-27] MEDS ORDERED: METOPROLOL TARTRATE 50 MG TABLET (FP) PO SCH (10:00)
--- NOTE | 2016-06-27 13:59 | PN ---
Progress Note (short form) - Note Progress Note: Anesthesia Post op Pt seen and examined S:alert and awake O: Vital Signs Temperature 97.6 F 06/27/16 06:00 Pulse Rate 80 06/27/16 06:00 Respiratory Rate 20 06/27/16 06:00 Blood Pressure 113/55 06/27/16 06:00 O2 Sat by Pulse Oximetry (%) 98 06/26/16 21:05 CBC, BMP 06/27/16 06:30 06/27/16 06:30 A/P: Current Active Problems Anemia (Acute) CAD S/P percutaneous coronary angioplasty (Acute) Chronic renal disease (Acute) Fracture of hip, left, closed (Acute) HTN (hypertension) (Acute) Hyperlipidemia (Acute) Renal artery stenosis (Acute) s/p Gamma nail Doing well post op Continue current care Frank Denton MD
[2016-06-27] MEDS: oxyCODONE HCL 5 MG TABLET PO PRN (14:04)
--- NOTE | 2016-06-27 16:47 | PN ---
Progress Note (short form) - Note Progress Note: cc: fracture S: pain well controlled. no cp, palps, dizziness, sob. Current Medications Acetaminophen (Tylenol -) 650 mg PO Q6H PRN PRN Reason: PAIN Acetaminophen (Tylenol -) 325 mg PO Q6H PRN PRN Reason: PAIN Calcium Carbonate/Cholecalciferol (Os-Yvon 500+D -) 1 tab PO BID [facility] Last Admin: 06/27/16 09:31 Dose: 1 tab Docusate Sodium (Colace -) 100 mg PO TID [facility] Last Admin: 06/27/16 14:04 Dose: 100 mg Enoxaparin Sodium (Lovenox -) 40 mg SQ DAILY [facility] Last Admin: 06/27/16 09:31 Dose: 40 mg Ferrous Sulfate (Feosol -) 325 mg PO BID [facility] Last Admin: 06/27/16 09:31 Dose: 325 mg Furosemide (Lasix -) 80 mg PO DAILY [facility] Last Admin: 06/27/16 09:30 Dose: 80 mg Cefazolin Sodium (Ancef 1gm Ivpb (Pre-Docked)) 50 mls @ 100 mls/hr IVPB Q8H-IV [facility] Stop: 06/28/16 00:59 Last Admin: 06/27/16 09:30 Dose: 100 mls/hr Dextrose/Sodium Chloride (D5-Ns -) 1,000 mls @ 42 mls/hr IV ASDIR [facility] (not running) Last Admin: 06/26/16 19:40 Dose: 42 mls/hr Magnesium Hydroxide (Milk Of Magnesia -) 30 ml PO DAILY PRN PRN Reason: CONSTIPATION Metoprolol Tartrate (Lopressor -) 50 mg PO DAILY [facility] Last Admin: 06/27/16 09:30 Dose: 50 mg Morphine Sulfate (Morphine Injection -) 2 mg IVPUSH Q3H PRN PRN Reason: PAIN Last Admin: 06/27/16 01:37 Dose: 2 mg Nifedipine (Procardia Xl -) 60 mg PO DAILY [facility] Last Admin: 06/27/16 09:35 Dose: 60 mg Ondansetron HCl (Zofran Injection) 4 mg IVPB Q8H PRN PRN Reason: NAUSEA Oxycodone HCl (Roxicodone -) 5 mg PO Q6H PRN PRN Reason: PAIN SCALE 1-5 Last Admin: 06/27/16 14:04 Dose: 5 mg Potassium Chloride (K-Dur -) 20 meq PO DAILY [facility] Last Admin: 06/27/16 09:31 Dose: 20 meq Rosuvastatin Calcium (Crestor -) 10 mg PO HS [facility] Last Admin: 06/26/16 22:02 Dose: 10 mg Vital Signs - 24 hr 06/26/16 06/26/16 06/26/16 19:01 19:15 19:30 Temperature 97.4 F L Pulse Rate 92 H 88 88 Respiratory 16 16 18 Rate Blood Pressure 97/62 110/56 93/57 O2 Sat by Pulse 93 L 98 98 Oximetry (%) 06/26/16 06/26/16 06/26/16 19:45 20:00 20:15 Temperature Pulse Rate 93 H 85 83 Respiratory 18 18 16 Rate Blood Pressure 92/55 120/55 120/53 O2 Sat by Pulse 97 95 95 Oximetry (%) 06/26/16 06/26/16 06/26/16 20:30 21:00 21:05 Temperature 97.7 F 97.4 F L Pulse Rate 82 83 Respiratory 16 20 20 Rate Blood Pressure 105/84 134/63 O2 Sat by Pulse 95 98 98 Oximetry (%) 06/26/16 06/27/16 06/27/16 22:20 02:00 06:00 Temperature 97.4 F L 97.6 F 97.6 F Pulse Rate 83 64 80 Respiratory 20 20 20 Rate Blood Pressure 134/63 153/76 113/55 O2 Sat by Pulse Oximetry (%) 06/27/16 06/27/16 09:00 14:00 Temperature 97.7 F 98.3 F Pulse Rate 81 67 Respiratory 17 17 Rate Blood Pressure 137/65 O2 Sat by Pulse 97 Oximetry (%) Intake & Output 06/25/16 06/26/16 06/27/16 06/28/16 07:59 07:59 07:59 07:59 Intake Total 2100 600 Output Total 550 780 100 Balance -550 1320 500 Weight 120 lb nad, calm no jvd rrr s1 s2 2/6 murmur at usb bibasilar dullness, poor eff aaox3 no le edema. no c/c abd nt nd pos bs pos dp/pt, no carotid bruits no diaphoresis/jaundice aaox3 CBC, BMP 06/27/16 06:30 06/27/16 06:30 cxr: clear lungs ec04/16/14: nsr, nl intervals, non-specific t wave flattening in inferior and lateral leads in comparison to priors. a/p: 85 f hx htn, hld, hypothyroid, ckd, cad s/p 4 pci's (last was approx > 5 yrs ago ), here with LE fracture s/p repair with left hip intramedullary nail on 06/26. Intertrochanteric fracture/Pre-operative clearance - surgery 06/26 - No active cardiac issues/sx's. Murmur at sternal border, but no signs of symptomatic or decompensated valvular disease. No further CV testing recommended prior to surgery. RCRI 1, but with low functional capacity. Patient CV risk estimated as low-intermediate. - Resume ASA when OK per surgery - bp/hr well controlled. no signs of volume overload. Incentive spirometry. cad s/p remote pci: - No signs of acs, no angina. - ASA when safe per surgery, con't crestor. anti-anginals. htn: - bp well controlled. Would transition to long acting metoprolol. Con't nifedipine. Con't to monitor. hld: - con't outpatient crestor.
--- NOTE | 2016-06-27 19:18 | PN ---
Progress Note (short form) - Note Progress Note: Orthopedics She feels well. She was able to sit up today with PT. She did not walk because she was in pain. Last Vital Signs Temp Pulse Resp BP Pulse Ox 98.3 F 67 17 137/65 97 06/27/16 14:00 06/27/16 14:00 06/27/16 14:00 06/27/16 09:00 06/27/16 09:00 CBC, BMP 06/27/16 06:30 06/27/16 06:30 Awake and alert Dressing intact, the dressing is a little saturated around the incision sites. No sign of infection Calf non tender, Neg chino's sign NVID Impression POD #1 s/o Left hip ORIF Plan: -Continue PT WBAT -Pain control -DVT prophalxis -Monitior H&H, currently stable.
[2016-06-27] MEDS: ROSUVASTATIN CA 10 MG TABLET (FP) PO SCH (21:15)
[2016-06-28] MEDS: DOCUSATE SODIUM 100 MG CAPSULE (FP) PO SCH ×3 (05:47→21:47)
[2016-06-28] MEDS: oxyCODONE HCL 5 MG TABLET PO PRN ×2 (05:47→12:36)
[2016-06-28] MEDS: ACETAMINOPHEN 325 MG TABLET (FP) PO PRN ×2 (05:47→12:37)
[2016-06-28 08:13] LABS: MCH 30.2 pg (25.7-33.7); MCHC 33.6 g/dl (32.0-36.0); MEAN CELL VOLUME 89.9 fl (80-96); MEAN PLT VOLUME 8.5 fl (7.5-11.1); PLATELET COUNT 77 K/MM3 (134-434); RDW 27.3 % (11.6-15.6); WHITE BLOOD COUNT 9.1 K/mm3 (4.0-10.0)
[2016-06-28 08:38] LABS: CALCIUM 8.6 mg/dL (8.5-10.1); CREATININE 2.1 mg/dL (0.55-1.02)
[2016-06-28] MEDS: FUROSEMIDE 40 MG TABLET (FP) PO SCH (10:39)
[2016-06-28] MEDS: ENOXAPARIN NA (PORCINE) 40 MG/0.4 ML DISP.SYRIN SQ SCH (10:39)
[2016-06-28] MEDS: NIFEdipine E.R 60 MG TABLET (UD) PO SCH (10:39)
[2016-06-28] MEDS: CALCIUM 500MG/VIT-D 200 UNITS COMBO TABLET (FP) PO SCH ×2 (10:39→21:47)
[2016-06-28] MEDS: METOPROLOL SUCCINATE 50 MG TAB.SR.24H (FP) PO SCH (10:39)
[2016-06-28] MEDS: FERROUS SO4 325 MG TABLET (FP) PO SCH ×2 (10:39→21:47)
[2016-06-28 10:52] LABS: ANISOCYTOSIS 3+; HYPOCHROMIA 1+; MICROCYTOSIS 1+; POLYCHROMASIA 1+
--- NOTE | 2016-06-28 11:28 | PN ---
[id number]. Pt is s/p Left hip ORIF - Current Medication List Current Medications: Active Medications Acetaminophen (Tylenol -) 650 mg PO Q6H PRN PRN Reason: PAIN Acetaminophen (Tylenol -) 325 mg PO Q6H PRN PRN Reason: PAIN Last Admin: 06/28/16 05:47 Dose: 325 mg Calcium Carbonate/Cholecalciferol (Os-Yvon 500+D -) 1 tab PO BID [facility] Last Admin: 06/28/16 10:39 Dose: 1 tab Docusate Sodium (Colace -) 100 mg PO TID [facility] Last Admin: 06/28/16 05:47 Dose: 100 mg Enoxaparin Sodium (Lovenox -) 40 mg SQ DAILY [facility] Last Admin: 06/28/16 10:39 Dose: 40 mg Ferrous Sulfate (Feosol -) 325 mg PO BID [facility] Last Admin: 06/28/16 10:39 Dose: 325 mg Furosemide (Lasix -) 80 mg PO DAILY [facility] Last Admin: 06/28/16 10:39 Dose: 80 mg Magnesium Hydroxide (Milk Of Magnesia -) 30 ml PO DAILY PRN PRN Reason: CONSTIPATION Metoprolol Succinate (Toprol Xl -) 50 mg PO DAILY [facility] Last Admin: 06/28/16 10:39 Dose: 50 mg Morphine Sulfate (Morphine Injection -) 2 mg IVPUSH Q3H PRN PRN Reason: PAIN Last Admin: 06/27/16 01:37 Dose: 2 mg Nifedipine (Procardia Xl -) 60 mg PO DAILY [facility] Last Admin: 06/28/16 10:39 Dose: 60 mg Ondansetron HCl (Zofran Injection) 4 mg IVPB Q8H PRN PRN Reason: NAUSEA Oxycodone HCl (Roxicodone -) 5 mg PO Q6H PRN PRN Reason: PAIN SCALE 1-5 Last Admin: 06/28/16 05:47 Dose: 5 mg Rosuvastatin Calcium (Crestor -) 10 mg PO HS [facility] Last Admin: 06/27/16 21:15 Dose: 10 mg - Objective Vital Signs: Vital Signs Temperature 98.7 F 06/28/16 06:00 Pulse Rate 88 06/28/16 06:00 Respiratory Rate 18 06/28/16 06:00 Blood Pressure 101/57 06/28/16 06:00 O2 Sat by Pulse Oximetry (%) 98 06/27/16 21:00 Constitutional: Yes: No Distress, Calm Cardiovascular: Yes: Regular Rate and Rhythm, S1, S2 Respiratory: Yes: Regular, CTA Bilaterally. No: Rales Gastrointestinal: Yes: Normal Bowel Sounds, Soft. No: Tenderness Edema: No Neurological: Yes: Alert, Oriented Labs: CBC, BMP 06/28/16 07:00 06/28/16 07:00 INR, PTT INR 1.12 (0.82-1.09) 06/25/16 11:10 Problem List - Problems (1) Fracture of hip, left, closed Assessment/Plan: Fracture secondary to fall- mechanical cause Ortho consult and f/u appreciated, s/p ORIF yesterday Cardio consult and f/u appreciated. Code(s): S72.002A - FRACTURE OF UNSP PART OF NECK OF LEFT FEMUR, INIT Qualifiers: Encounter type: initial encounter Qualified Code(s): S72.002A - Fracture of unspecified part of neck of left femur, initial encounter for closed fracture (2) CAD S/P percutaneous coronary angioplasty Assessment/Plan: s/p PCI with stents. Code(s): I25.10 - ATHSCL HEART DISEASE OF [place] CORONARY ARTERY W/O ANG PCTRS Z98.61 - CORONARY ANGIOPLASTY STATUS (3) HTN (hypertension) Assessment/Plan: cont meds. controlled. Code(s): I10 - ESSENTIAL (PRIMARY) HYPERTENSION (4) Hyperlipidemia Code(s): E78.5 - HYPERLIPIDEMIA, UNSPECIFIED (5) Renal artery stenosis Code(s): I70.1 - ATHEROSCLEROSIS OF RENAL ARTERY (6) Chronic renal disease Assessment/Plan: Creatinine worse; likely secondary to hypoperfusion secondary to anemia; to give Lasix after PRBC PRN. To monitor. Code(s): N18.9 - CHRONIC KIDNEY DISEASE, UNSPECIFIED (7) Anemia Assessment/Plan: Worse today; to transfuse PRBC; to monitor H/H. Code(s): D64.9 - ANEMIA, UNSPECIFIED
--- NOTE | 2016-06-28 15:06 | PN ---
Progress Note (short form) - Note Progress Note: Pt w less pain than yesterday AF VSS LLE stable bloody spotting on dressings calves soft NT 5/5 distal motor sens int to LT 1+ DP hct 21 in am, now getting prbcs a/p pod 2 L hip IM nail -anticipate that patient has stopped losing blood at this point, HCT should stabilize, no evidence for bleeding in thigh today -resume PT in AM -pain control -dvt proph -dispo planning Problem List - Problems (1) Fracture of hip, left, closed Code(s): S72.002A - FRACTURE OF UNSP PART OF NECK OF LEFT FEMUR, INIT Qualifiers: Encounter type: initial encounter Qualified Code(s): S72.002A - Fracture of unspecified part of neck of left femur, initial encounter for closed fracture
[2016-06-28] MEDS: ROSUVASTATIN CA 10 MG TABLET (FP) PO SCH (21:46)
[2016-06-29] MEDS: DOCUSATE SODIUM 100 MG CAPSULE (FP) PO SCH ×3 (06:11→22:18)
[2016-06-29 07:16] LABS: MCH 30.7 pg (25.7-33.7); MEAN CELL VOLUME 87.9 fl (80-96); MEAN PLT VOLUME 8.3 fl (7.5-11.1); PLATELET COUNT 85 K/MM3 (134-434); RDW 23.2 % (11.6-15.6); WHITE BLOOD COUNT 9.7 K/mm3 (4.0-10.0)
[2016-06-29 07:46] LABS: CALCIUM 8.9 mg/dL (8.5-10.1); CREATININE 1.9 mg/dL (0.55-1.02)
[2016-06-29] MEDS ORDERED: PT OWN MED DRAWER 7, Y5N ONE (10:09)
[2016-06-29] MEDS: NIFEdipine E.R 60 MG TABLET (UD) PO SCH (10:10)
[2016-06-29] MEDS: CALCIUM 500MG/VIT-D 200 UNITS COMBO TABLET (FP) PO SCH ×2 (10:10→22:17)
[2016-06-29] MEDS: FERROUS SO4 325 MG TABLET (FP) PO SCH ×2 (10:10→22:18)
[2016-06-29] MEDS: METOPROLOL SUCCINATE 50 MG TAB.SR.24H (FP) PO SCH (10:10)
[2016-06-29] MEDS: ENOXAPARIN NA (PORCINE) 40 MG/0.4 ML DISP.SYRIN SQ SCH (10:10)
[2016-06-29] MEDS: FUROSEMIDE 40 MG TABLET (FP) PO SCH (10:11)
[2016-06-29] MEDS: oxyCODONE HCL 5 MG TABLET PO PRN ×2 (10:11→17:56)
--- NOTE | 2016-06-29 11:00 | PN ---
Progress Note, Physician History of Present Illness: Pt. w/o CP, SOB, palp., dizziness; pt. with left groin pain with leg movements; pt sitting up in the chair. Pt is s/p Left hip ORIF - Current Medication List Current Medications: Active Medications Acetaminophen (Tylenol -) 650 mg PO Q6H PRN PRN Reason: PAIN Acetaminophen (Tylenol -) 325 mg PO Q6H PRN PRN Reason: PAIN Last Admin: 06/28/16 12:37 Dose: 325 mg Calcium Carbonate/Cholecalciferol (Os-Yvon 500+D -) 1 tab PO BID [facility] Last Admin: 06/29/16 10:10 Dose: 1 tab Docusate Sodium (Colace -) 100 mg PO TID [facility] Last Admin: 06/29/16 06:11 Dose: 100 mg Enoxaparin Sodium (Lovenox -) 40 mg SQ DAILY [facility] Last Admin: 06/29/16 10:10 Dose: 40 mg Ferrous Sulfate (Feosol -) 325 mg PO BID [facility] Last Admin: 06/29/16 10:10 Dose: 325 mg Furosemide (Lasix -) 80 mg PO DAILY [facility] Last Admin: 06/29/16 10:11 Dose: 80 mg Potassium Chloride (Potassium Chloride 10 Meq Premix Ivpb -) 100 mls @ 100 mls/ hr IVPB Q60M [facility] Stop: 06/29/16 13:29 Magnesium Hydroxide (Milk Of Magnesia -) 30 ml PO DAILY PRN PRN Reason: CONSTIPATION Metoprolol Succinate (Toprol Xl -) 50 mg PO DAILY [facility] Last Admin: 06/29/16 10:10 Dose: 50 mg Morphine Sulfate (Morphine Injection -) 2 mg IVPUSH Q3H PRN PRN Reason: PAIN Last Admin: 06/27/16 01:37 Dose: 2 mg Nifedipine (Procardia Xl -) 60 mg PO DAILY [facility] Last Admin: 06/29/16 10:10 Dose: 60 mg Ondansetron HCl (Zofran Injection) 4 mg IVPB Q8H PRN PRN Reason: NAUSEA Oxycodone HCl (Roxicodone -) 5 mg PO Q6H PRN PRN Reason: PAIN SCALE 1-5 Last Admin: 06/29/16 10:11 Dose: 5 mg Potassium Chloride (K-Dur -) 20 meq PO ONCE ONE Stop: 06/29/16 11:16 Rosuvastatin Calcium (Crestor -) 10 mg PO HS [facility] Last Admin: 06/28/16 21:46 Dose: 10 mg - Objective Vital Signs: Vital Signs Temperature 97.8 F 06/29/16 08:50 Pulse Rate 78 06/29/16 08:50 Respiratory Rate 20 06/29/16 09:00 Blood Pressure 121/56 06/29/16 08:50 O2 Sat by Pulse Oximetry (%) 98 06/29/16 09:00 Constitutional: Yes: No Distress, Calm Cardiovascular: Yes: Regular Rate and Rhythm, S1, S2 Respiratory: Yes: Regular, Rales (at bases) Gastrointestinal: Yes: Normal Bowel Sounds, Soft. No: Tenderness Edema: LLE: Trace Neurological: Yes: Alert, Oriented Labs: CBC, BMP 06/29/16 05:35 06/29/16 05:35 INR, PTT INR 1.12 (0.82-1.09) 06/25/16 11:10 Problem List - Problems (1) Fracture of hip, left, closed Assessment/Plan: Fracture secondary to fall- mechanical cause Ortho consult and f/u appreciated, s/p ORIF yesterday Cardio consult and f/u appreciated. Code(s): S72.002A - FRACTURE OF UNSP PART OF NECK OF LEFT FEMUR, INIT Qualifiers: Encounter type: initial encounter Qualified Code(s): S72.002A - Fracture of unspecified part of neck of left femur, initial encounter for closed fracture (2) CAD S/P percutaneous coronary angioplasty Assessment/Plan: s/p PCI with stents. Code(s): I25.10 - ATHSCL HEART DISEASE OF [place] CORONARY ARTERY W/O ANG PCTRS Z98.61 - CORONARY ANGIOPLASTY STATUS (3) HTN (hypertension) Assessment/Plan: cont meds. controlled. Code(s): I10 - ESSENTIAL (PRIMARY) HYPERTENSION (4) Hyperlipidemia Assessment/Plan: on statin Code(s): E78.5 - HYPERLIPIDEMIA, UNSPECIFIED (5) Renal artery stenosis Assessment/Plan: s/p stent placement Code(s): I70.1 - ATHEROSCLEROSIS OF RENAL ARTERY (6) Chronic renal disease Assessment/Plan: Creatinine improved after PRBCtransfusion. To monitor. Code(s): N18.9 - CHRONIC KIDNEY DISEASE, UNSPECIFIED (7) Anemia Assessment/Plan: s/p (3 units total) PRBC transfusion. H/H improved Code(s): D64.9 - ANEMIA, UNSPECIFIED (8) Hypokalemia due to inadequate potassium intake Assessment/Plan: To replete. I encourage pt to increase PO food intake. Ckeck Mg. F/u K level in AM Code(s): E87.6 - HYPOKALEMIA
[2016-06-29] MEDS ORDERED: POTASSIUM CHLORIDE TABS 20 MEQ TABLET.ER (FP) PO ONE (11:15)
[2016-06-29] MEDS: KCL 10 MEQ IVPB 100 ML IVPB SCH ×2 (11:24→13:34)
[2016-06-29 12:13] LABS: MAGNESIUM 1.8 mg/dL (1.8-2.4)
--- NOTE | 2016-06-29 16:29 | PN ---
Progress Note (short form) - Note Progress Note: cc: fracture S: pain well controlled. no cp, palps, dizziness, sob. walked a few paces today. Current Medications Acetaminophen (Tylenol -) 650 mg PO Q6H PRN PRN Reason: PAIN Acetaminophen (Tylenol -) 325 mg PO Q6H PRN PRN Reason: PAIN Last Admin: 06/28/16 12:37 Dose: 325 mg Calcium Carbonate/Cholecalciferol (Os-Yvon 500+D -) 1 tab PO BID [facility] Last Admin: 06/29/16 10:10 Dose: 1 tab Docusate Sodium (Colace -) 100 mg PO TID [facility] Last Admin: 06/29/16 14:50 Dose: 100 mg Enoxaparin Sodium (Lovenox -) 40 mg SQ DAILY [facility] Last Admin: 06/29/16 10:10 Dose: 40 mg Ferrous Sulfate (Feosol -) 325 mg PO BID [facility] Last Admin: 06/29/16 10:10 Dose: 325 mg Furosemide (Lasix -) 80 mg PO DAILY [facility] Last Admin: 06/29/16 10:11 Dose: 80 mg Magnesium Hydroxide (Milk Of Magnesia -) 30 ml PO DAILY PRN PRN Reason: CONSTIPATION Metoprolol Succinate (Toprol Xl -) 50 mg PO DAILY [facility] Last Admin: 06/29/16 10:10 Dose: 50 mg Morphine Sulfate (Morphine Injection -) 2 mg IVPUSH Q3H PRN PRN Reason: PAIN Last Admin: 06/27/16 01:37 Dose: 2 mg Nifedipine (Procardia Xl -) 60 mg PO DAILY [facility] Last Admin: 06/29/16 10:10 Dose: 60 mg Ondansetron HCl (Zofran Injection) 4 mg IVPB Q8H PRN PRN Reason: NAUSEA Oxycodone HCl (Roxicodone -) 5 mg PO Q6H PRN PRN Reason: PAIN SCALE 1-5 Last Admin: 06/29/16 10:11 Dose: 5 mg Rosuvastatin Calcium (Crestor -) 10 mg PO HS [facility] Last Admin: 06/28/16 21:46 Dose: 10 mg Vital Signs - 24 hr 06/28/16 06/28/16 06/29/16 20:56 21:00 05:32 Temperature 98.1 F 97.6 F Pulse Rate 88 82 Respiratory 20 20 20 Rate Blood Pressure 121/60 136/70 O2 Sat by Pulse 98 Oximetry (%) 06/29/16 06/29/16 06/29/16 08:50 09:00 15:51 Temperature 97.8 F 97.7 F Pulse Rate 78 84 Respiratory 20 20 Rate Blood Pressure 121/56 124/81 O2 Sat by Pulse 98 Oximetry (%) Intake & Output 06/27/16 06/28/16 06/29/16 06/30/16 07:59 07:59 07:59 07:59 Intake Total 2100 1700 750 600 Output Total 780 1050 550 200 Balance 1320 650 200 400 nad, calm no jvd rrr s1 s2 2/6 murmur at usb bibasilar dullness, poor eff aaox3 no le edema. no c/c abd nt nd pos bs pos dp/pt, no carotid bruits no diaphoresis/jaundice aaox3 CBC, BMP 06/29/16 05:35 06/29/16 05:35 Laboratory Tests 06/29/16 05:35 Magnesium 1.8 cxr: clear lungs ec04/16/14: nsr, nl intervals, non-specific t wave flattening in inferior and lateral leads in comparison to priors. a/p: 85 f hx htn, hld, hypothyroid, ckd, cad s/p 4 pci's (last was approx > 5 yrs ago ), here with LE fracture s/p repair with left hip intramedullary nail on 06/26. Intertrochanteric fracture/Pre-operative clearance - surgery 06/26 - No active cardiac issues/sx's. Murmur at sternal border, but no signs of symptomatic or decompensated valvular disease. No further CV testing recommended prior to surgery. RCRI 1, but with low functional capacity. Patient CV risk estimated as low-intermediate. - Resume ASA when OK per surgery - bp/hr well controlled. no signs of volume overload. Incentive spirometry. - wean oxygen to assess for O2 requirement. cad s/p remote pci: - No signs of acs, no angina. - ASA when safe per surgery, con't crestor. anti-anginals. htn: - bp well controlled. Con't nifedipine, metoprolol. Con't to monitor. hld: - con't outpatient crestor.
[2016-06-29] MEDS ORDERED: POTASSIUM CHLORIDE 40 MEQ/30 ML UNIT DOSE CUP PO ONE (17:00)
[2016-06-29] MEDS: ACETAMINOPHEN 325 MG TABLET (FP) PO PRN (17:57)
[2016-06-29] MEDS: ROSUVASTATIN CA 10 MG TABLET (FP) PO SCH (22:17)
[2016-06-30] MEDS: DOCUSATE SODIUM 100 MG CAPSULE (FP) PO SCH ×3 (06:21→21:40)
[2016-06-30 08:51] LABS: CALCIUM 9.1 mg/dL (8.5-10.1); MAGNESIUM 1.8 mg/dL (1.8-2.4)
[2016-06-30 08:52] LABS: CREATININE 1.8 mg/dL (0.55-1.02)
[2016-06-30] MEDS ORDERED: PT OWN MED DRAWER 7, Y5N ONE (08:55)
[2016-06-30] MEDS: oxyCODONE HCL 5 MG TABLET PO PRN (08:58)
[2016-06-30] MEDS: ACETAMINOPHEN 325 MG TABLET (FP) PO PRN (08:59)
[2016-06-30] MEDS: CALCIUM 500MG/VIT-D 200 UNITS COMBO TABLET (FP) PO SCH ×2 (09:00→21:40)
[2016-06-30] MEDS: METOPROLOL SUCCINATE 50 MG TAB.SR.24H (FP) PO SCH (09:00)
[2016-06-30] MEDS: ENOXAPARIN NA (PORCINE) 40 MG/0.4 ML DISP.SYRIN SQ SCH (09:01)
[2016-06-30] MEDS: FUROSEMIDE 40 MG TABLET (FP) PO SCH (09:01)
[2016-06-30] MEDS: NIFEdipine E.R 60 MG TABLET (UD) PO SCH (09:01)
[2016-06-30] MEDS: FERROUS SO4 325 MG TABLET (FP) PO SCH ×2 (09:01→21:40)
[2016-06-30] MEDS ORDERED: POTASSIUM CHLORIDE TABS 20 MEQ TABLET.ER (FP) PO ONE (12:58)
--- NOTE | 2016-06-30 13:00 | PN ---
Progress Note, Physician Chief Complaint: in bed had a lot of hip pain L with trying to walk or stand up; CBC ordered - Current Medication List Current Medications: Active Medications Acetaminophen (Tylenol -) 650 mg PO Q6H PRN PRN Reason: PAIN Acetaminophen (Tylenol -) 325 mg PO Q6H PRN PRN Reason: PAIN Last Admin: 06/30/16 08:59 Dose: 325 mg Calcium Carbonate/Cholecalciferol (Os-Yvon 500+D -) 1 tab PO BID [facility] Last Admin: 06/30/16 09:00 Dose: 1 tab Docusate Sodium (Colace -) 100 mg PO TID [facility] Last Admin: 06/30/16 06:21 Dose: 100 mg Enoxaparin Sodium (Lovenox -) 40 mg SQ DAILY [facility] Last Admin: 06/30/16 09:01 Dose: 40 mg Ferrous Sulfate (Feosol -) 325 mg PO BID [facility] Last Admin: 06/30/16 09:01 Dose: 325 mg Furosemide (Lasix -) 80 mg PO DAILY [facility] Last Admin: 06/30/16 09:01 Dose: 80 mg Magnesium Hydroxide (Milk Of Magnesia -) 30 ml PO DAILY PRN PRN Reason: CONSTIPATION Metoprolol Succinate (Toprol Xl -) 50 mg PO DAILY [facility] Last Admin: 06/30/16 09:00 Dose: 50 mg Nifedipine (Procardia Xl -) 60 mg PO DAILY [facility] Last Admin: 06/30/16 09:01 Dose: 60 mg Ondansetron HCl (Zofran Injection) 4 mg IVPB Q8H PRN PRN Reason: NAUSEA Oxycodone HCl (Roxicodone -) 5 mg PO Q6H PRN PRN Reason: PAIN SCALE 1-5 Last Admin: 06/30/16 08:58 Dose: 5 mg Potassium Chloride (K-Dur -) 40 meq PO ONCE ONE Stop: 06/30/16 12:59 Rosuvastatin Calcium (Crestor -) 10 mg PO [facility] Last Admin: 06/29/16 22:17 Dose: 10 mg - Objective Vital Signs: Vital Signs Temperature 97.7 F 06/30/16 06:00 Pulse Rate 74 06/30/16 06:00 Respiratory Rate 18 06/30/16 06:00 Blood Pressure 118/54 06/30/16 06:00 O2 Sat by Pulse Oximetry (%) 98 06/29/16 22:00 Constitutional: Yes: No Distress Eyes: Yes: Conjunctiva Clear HENT: Yes: Atraumatic Neck: Yes: Supple Cardiovascular: Yes: Regular Rate and Rhythm Respiratory: Yes: CTA Bilaterally Gastrointestinal: Yes: Soft. No: Distention, Tenderness Genitourinary: No: CVA Tenderness - Left, CVA Tenderness - Right Musculoskeletal: No: Joint Stiffness, Joint Swelling Edema: No Peripheral Pulses WNL: Yes Integumentary: No: Rash, Venous Stasis Changes Neurological: Yes: WNL, Alert, Oriented ...Motor Strength: WNL Psychiatric: Yes: WNL, Alert, Oriented. No: Agitated, Suicidal Ideation Labs: CBC, BMP 06/29/16 05:35 06/30/16 07:35 INR, PTT INR 1.12 (0.82-1.09) 06/25/16 11:10 - ....Imaging Other: Report Reviewed Assessment/Plan /p fall, sp Hip fracture s/p surgery; ASHD HTN pain in hip anemia after surgery; s/p PRBC low K - replete po check labs PT rehab ortho f/u falls PFX d/w pt and staff
[2016-06-30] MEDS: ROSUVASTATIN CA 10 MG TABLET (FP) PO SCH (21:40)
[2016-07-01] MEDS: DOCUSATE SODIUM 100 MG CAPSULE (FP) PO SCH ×3 (06:42→21:37)
[2016-07-01 07:46] LABS: BASOPHIL 0.3 % (0-2.0); EOSINOPHIL 0.6 % (0-4.5); MCH 30.7 pg (25.7-33.7); MCHC 33.8 g/dl (32.0-36.0); MEAN CELL VOLUME 90.6 fl (80-96); MEAN PLT VOLUME 8.5 fl (7.5-11.1); NEUTROPHILS 83.6 % (42.8-82.8); PLATELET COUNT 119 K/MM3 (134-434); RDW 23.1 % (11.6-15.6); WHITE BLOOD COUNT 14.1 K/mm3 (4.0-10.0)
[2016-07-01 08:24] LABS: CALCIUM 8.7 mg/dL (8.5-10.1)
[2016-07-01 08:26] LABS: CREATININE 1.8 mg/dL (0.55-1.02)
--- NOTE | 2016-07-01 08:59 | PN ---
Progress Note, Physician Chief Complaint: CAD History of Present Illness: no cp, sob, palpitations; still with some hip pain - Current Medication List Current Medications: Active Medications Acetaminophen (Tylenol -) 650 mg PO Q6H PRN PRN Reason: PAIN Acetaminophen (Tylenol -) 325 mg PO Q6H PRN PRN Reason: PAIN Last Admin: 06/30/16 08:59 Dose: 325 mg Calcium Carbonate/Cholecalciferol (Os-Yvon 500+D -) 1 tab PO BID [facility] Last Admin: 06/30/16 21:40 Dose: 1 tab Docusate Sodium (Colace -) 100 mg PO TID [facility] Last Admin: 07/01/16 06:42 Dose: 100 mg Enoxaparin Sodium (Lovenox -) 40 mg SQ DAILY [facility] Last Admin: 06/30/16 09:01 Dose: 40 mg Ferrous Sulfate (Feosol -) 325 mg PO BID [facility] Last Admin: 06/30/16 21:40 Dose: 325 mg Furosemide (Lasix -) 80 mg PO DAILY [facility] Last Admin: 06/30/16 09:01 Dose: 80 mg Magnesium Hydroxide (Milk Of Magnesia -) 30 ml PO DAILY PRN PRN Reason: CONSTIPATION Last Admin: 06/30/16 18:00 Dose: 30 ml Metoprolol Succinate (Toprol Xl -) 50 mg PO DAILY [facility] Last Admin: 06/30/16 09:00 Dose: 50 mg Nifedipine (Procardia Xl -) 60 mg PO DAILY [facility] Last Admin: 06/30/16 09:01 Dose: 60 mg Ondansetron HCl (Zofran Injection) 4 mg IVPB Q8H PRN PRN Reason: NAUSEA Oxycodone HCl (Roxicodone -) 5 mg PO Q6H PRN PRN Reason: PAIN SCALE 1-5 Last Admin: 06/30/16 08:58 Dose: 5 mg Rosuvastatin Calcium (Crestor -) 10 mg PO [facility] Last Admin: 06/30/16 21:40 Dose: 10 mg - Objective Vital Signs: Vital Signs Temperature 97.9 F 07/01/16 06:00 Pulse Rate 71 07/01/16 06:00 Respiratory Rate 18 07/01/16 06:00 Blood Pressure 126/61 07/01/16 06:00 O2 Sat by Pulse Oximetry (%) 96 06/30/16 22:00 Constitutional: Yes: Well Nourished, No Distress, Calm Cardiovascular: Yes: Regular Rate and Rhythm, Murmur (2/6 early CHAVO lusb), S1, S2. No: Gallop Respiratory: Yes: Regular, CTA Bilaterally. No: Accessory Muscle Use, Rales, Wheezes Extremities: No: Cold Edema: No Neurological: Yes: Alert, Oriented Psychiatric: No: Agitated Labs: CBC, BMP 07/01/16 06:20 07/01/16 06:20 INR, PTT INR 1.12 (0.82-1.09) 06/25/16 11:10 Assessment/Plan ec04/16/14: nsr, nl intervals, non-specific t wave flattening in inferior and lateral leads in comparison to priors. a/p: 85 f hx htn, hld, hypothyroid, ckd, cad s/p 4 pci's (last was approx > 5 yrs ago ), here with LE fracture s/p repair with left hip intramedullary nail on 06/26. Intertrochanteric fracture/Pre-operative clearance - surgery 06/26 - No active cardiac issues/sx's. Murmur at sternal border, but no signs of symptomatic or decompensated valvular disease. No further CV testing recommended prior to surgery. RCRI 1, but with low functional capacity. Patient CV risk estimated as low-intermediate. - 07/01: hgb 7s on 06/28--has been stable s/p PRBCs for 48 hrs now - resume prior ASA on 07/02 - bp/hr well controlled. no signs of volume overload. Incentive spirometry. - wean oxygen to assess for O2 requirement. cad s/p remote pci: - No suspected acs here, no angina. - con't crestor. anti-anginals. - resume ASA in am, as above murmur: - benign features on exam - routine outpt f/u (+/- echo) with dr murray htn: - bp well controlled. Con't nifedipine, metoprolol. Con't to monitor. CKD: - renal fxn currently stable vs prior range in computer
[2016-07-01] MEDS ORDERED: PT OWN MED DRAWER 7, Y5N ONE (09:48)
[2016-07-01] MEDS: FUROSEMIDE 40 MG TABLET (FP) PO SCH (09:55)
[2016-07-01] MEDS: NIFEdipine E.R 60 MG TABLET (UD) PO SCH (09:56)
[2016-07-01] MEDS: CALCIUM 500MG/VIT-D 200 UNITS COMBO TABLET (FP) PO SCH ×2 (09:56→21:37)
[2016-07-01] MEDS: FERROUS SO4 325 MG TABLET (FP) PO SCH ×2 (09:56→21:37)
[2016-07-01] MEDS: ENOXAPARIN NA (PORCINE) 40 MG/0.4 ML DISP.SYRIN SQ SCH (09:56)
[2016-07-01] MEDS: METOPROLOL SUCCINATE 50 MG TAB.SR.24H (FP) PO SCH (09:56)
--- NOTE | 2016-07-01 11:46 | PN ---
Progress Note, Physician History of Present Illness: Pt. w/o CP, SOB, palp., dizziness; pt. with left groin pain with leg movements- getting better. Pt is s/p Left hip ORIF - Current Medication List Current Medications: Active Medications Acetaminophen (Tylenol -) 650 mg PO Q6H PRN PRN Reason: PAIN Acetaminophen (Tylenol -) 325 mg PO Q6H PRN PRN Reason: PAIN Last Admin: 06/30/16 08:59 Dose: 325 mg Aspirin (Ecotrin -) 81 mg PO DAILY [facility] Calcium Carbonate/Cholecalciferol (Os-Yvon 500+D -) 1 tab PO BID [facility] Last Admin: 07/01/16 09:56 Dose: 1 tab Docusate Sodium (Colace -) 100 mg PO TID [facility] Last Admin: 07/01/16 06:42 Dose: 100 mg Enoxaparin Sodium (Lovenox -) 40 mg SQ DAILY [facility] Last Admin: 07/01/16 09:56 Dose: 40 mg Ferrous Sulfate (Feosol -) 325 mg PO BID [facility] Last Admin: 07/01/16 09:56 Dose: 325 mg Furosemide (Lasix -) 80 mg PO DAILY [facility] Last Admin: 07/01/16 09:55 Dose: 80 mg Magnesium Hydroxide (Milk Of Magnesia -) 30 ml PO DAILY PRN PRN Reason: CONSTIPATION Last Admin: 06/30/16 18:00 Dose: 30 ml Metoprolol Succinate (Toprol Xl -) 50 mg PO DAILY [facility] Last Admin: 07/01/16 09:56 Dose: 50 mg Nifedipine (Procardia Xl -) 60 mg PO DAILY [facility] Last Admin: 07/01/16 09:56 Dose: 60 mg Ondansetron HCl (Zofran Injection) 4 mg IVPB Q8H PRN PRN Reason: NAUSEA Oxycodone HCl (Roxicodone -) 5 mg PO Q6H PRN PRN Reason: PAIN SCALE 1-5 Last Admin: 06/30/16 08:58 Dose: 5 mg Rosuvastatin Calcium (Crestor -) 10 mg PO [facility] Last Admin: 06/30/16 21:40 Dose: 10 mg - Objective Vital Signs: Vital Signs Temperature 98.4 F 07/01/16 08:00 Pulse Rate 90 07/01/16 08:00 Respiratory Rate 20 07/01/16 08:00 Blood Pressure 121/67 07/01/16 08:00 O2 Sat by Pulse Oximetry (%) 95 07/01/16 08:00 Constitutional: Yes: No Distress, Calm Cardiovascular: Yes: Regular Rate and Rhythm, S1, S2 Respiratory: Yes: Regular, CTA Bilaterally, Rales (at bases) Gastrointestinal: Yes: Normal Bowel Sounds, Soft. No: Tenderness Edema: LLE: Trace Labs: CBC, BMP 07/01/16 06:20 07/01/16 06:20 INR, PTT INR 1.12 (0.82-1.09) 06/25/16 11:10 Problem List - Problems (1) Fracture of hip, left, closed Assessment/Plan: Fracture secondary to fall- mechanical cause Ortho consult and f/u appreciated, s/p ORIF yesterday Cardio consult and f/u appreciated. Code(s): S72.002A - FRACTURE OF UNSP PART OF NECK OF LEFT FEMUR, INIT Qualifiers: Encounter type: initial encounter Qualified Code(s): S72.002A - Fracture of unspecified part of neck of left femur, initial encounter for closed fracture (2) CAD S/P percutaneous coronary angioplasty Assessment/Plan: s/p PCI with stents. Code(s): I25.10 - ATHSCL HEART DISEASE OF [place] CORONARY ARTERY W/O ANG PCTRS Z98.61 - CORONARY ANGIOPLASTY STATUS (3) HTN (hypertension) Assessment/Plan: cont meds. controlled. Code(s): I10 - ESSENTIAL (PRIMARY) HYPERTENSION (4) Hyperlipidemia Assessment/Plan: on statin Code(s): E78.5 - HYPERLIPIDEMIA, UNSPECIFIED (5) Renal artery stenosis Assessment/Plan: s/p stent placement Code(s): I70.1 - ATHEROSCLEROSIS OF RENAL ARTERY (6) Chronic renal disease Assessment/Plan: Creatinine stable. To monitor. Code(s): N18.9 - CHRONIC KIDNEY DISEASE, UNSPECIFIED (7) Anemia Assessment/Plan: s/p (3 units total) PRBC transfusion. Stable H/H Code(s): D64.9 - ANEMIA, UNSPECIFIED (8) Hypokalemia due to inadequate potassium intake Assessment/Plan: Repleted. I encourage pt to increase PO food intake. F/u K level in AM Code(s): E87.6 - HYPOKALEMIA
[2016-07-01] MEDS: ACETAMINOPHEN 325 MG TABLET (FP) PO PRN (17:36)
[2016-07-01] MEDS: ROSUVASTATIN CA 10 MG TABLET (FP) PO SCH (21:37)
[2016-07-02] MEDS: DOCUSATE SODIUM 100 MG CAPSULE (FP) PO SCH ×3 (05:58→21:45)
[2016-07-02 08:09] LABS: BASOPHIL 0.5 % (0-2.0); EOSINOPHIL 3.2 % (0-4.5); MCH 30.4 pg (25.7-33.7); MCHC 33.3 g/dl (32.0-36.0); MEAN CELL VOLUME 91.2 fl (80-96); MEAN PLT VOLUME 8.5 fl (7.5-11.1); NEUTROPHILS 71.3 % (42.8-82.8); PLATELET COUNT 116 K/MM3 (134-434); RDW 22.7 % (11.6-15.6); WHITE BLOOD COUNT 9.3 K/mm3 (4.0-10.0)
[2016-07-02 08:35] LABS: CALCIUM 8.5 mg/dL (8.5-10.1); CREATININE 1.8 mg/dL (0.55-1.02)
[2016-07-02] MEDS ORDERED: POTASSIUM CHLORIDE TABS 20 MEQ TABLET.ER (FP) PO ONE (09:03)
[2016-07-02] MEDS: FUROSEMIDE 40 MG TABLET (FP) PO SCH (10:37)
[2016-07-02] MEDS: ENOXAPARIN NA (PORCINE) 40 MG/0.4 ML DISP.SYRIN SQ SCH (10:37)
[2016-07-02] MEDS: CALCIUM 500MG/VIT-D 200 UNITS COMBO TABLET (FP) PO SCH ×2 (10:37→21:45)
[2016-07-02] MEDS: FERROUS SO4 325 MG TABLET (FP) PO SCH ×2 (10:37→21:45)
[2016-07-02] MEDS: ASPIRIN COATED 81 MG TABLET.EC PO SCH (10:37)
[2016-07-02] MEDS: METOPROLOL SUCCINATE 50 MG TAB.SR.24H (FP) PO SCH (10:38)
[2016-07-02] MEDS: NIFEdipine E.R 60 MG TABLET (UD) PO SCH (10:41)
--- NOTE | 2016-07-02 12:37 | PN ---
Progress Note (short form) - Note Progress Note: 85y F s/p IM nail L hip now with increased ankle discomfort AF VSS LLE stable bloody spotting on dressings calves soft NT Does have some lateral ankle swelling, tenderness to palpation 5/5 distal motor sens int to LT 1+ DP hct 23.7 unclear why dropped since yesterday, no evidence of further bleeding a/p pod 5 L hip IM nail -will obtain x-ray to evaluate for ankle injury, may represent injury of ankle vs post traumatic edema from hip -cont PT, oob, wbat -may consider use of aircast if x-rays normal for ankle sprain -f/u hct Problem List - Problems (1) Fracture of hip, left, closed Code(s): S72.002A - FRACTURE OF UNSP PART OF NECK OF LEFT FEMUR, INIT Qualifiers: Encounter type: initial encounter Qualified Code(s): S72.002A - Fracture of unspecified part of neck of left femur, initial encounter for closed fracture
--- NOTE | 2016-07-02 14:46 | PN ---
Progress Note (short form) - Note Progress Note: Chief Complaint: CAD History of Present Illness: no cp, sob, palpitations; still with some hip pain and ankle pain. Still with poor PO intake. + dizziness on sitting up. Current Medications Acetaminophen (Tylenol -) 650 mg PO Q6H PRN PRN Reason: PAIN Last Admin: 07/01/16 17:36 Dose: 650 mg Acetaminophen (Tylenol -) 325 mg PO Q6H PRN PRN Reason: PAIN Last Admin: 06/30/16 08:59 Dose: 325 mg Aspirin (Ecotrin -) 81 mg PO DAILY [facility] Last Admin: 07/02/16 10:37 Dose: 81 mg Calcium Carbonate/Cholecalciferol (Os-Yvon 500+D -) 1 tab PO BID [facility] Last Admin: 07/02/16 10:37 Dose: 1 tab Docusate Sodium (Colace -) 100 mg PO TID [facility] Last Admin: 07/02/16 13:53 Dose: 100 mg Enoxaparin Sodium (Lovenox -) 40 mg SQ DAILY [facility] Last Admin: 07/02/16 10:37 Dose: 40 mg Ferrous Sulfate (Feosol -) 325 mg PO BID [facility] Last Admin: 07/02/16 10:37 Dose: 325 mg Furosemide (Lasix -) 80 mg PO DAILY [facility] Last Admin: 07/02/16 10:37 Dose: 80 mg Magnesium Hydroxide (Milk Of Magnesia -) 30 ml PO DAILY PRN PRN Reason: CONSTIPATION Last Admin: 06/30/16 18:00 Dose: 30 ml Metoprolol Succinate (Toprol Xl -) 50 mg PO DAILY [facility] Last Admin: 07/02/16 10:38 Dose: 50 mg Nifedipine (Procardia Xl -) 60 mg PO DAILY [facility] Last Admin: 07/02/16 10:41 Dose: 60 mg Ondansetron HCl (Zofran Injection) 4 mg IVPB Q8H PRN PRN Reason: NAUSEA Oxycodone HCl (Roxicodone -) 5 mg PO Q6H PRN PRN Reason: PAIN SCALE 1-5 Last Admin: 06/30/16 08:58 Dose: 5 mg Rosuvastatin Calcium (Crestor -) 10 mg PO HS [facility] Last Admin: 07/01/16 21:37 Dose: 10 mg Vital Signs - 24 hr 07/01/16 07/01/16 07/02/16 18:00 20:06 06:42 Temperature 98.4 F 97.8 F Pulse Rate 75 73 Respiratory 18 18 18 Rate Blood Pressure 107/51 121/61 O2 Sat by Pulse 95 Oximetry (%) 07/02/16 08:00 Temperature 98.0 F Pulse Rate 66 Respiratory 20 Rate Blood Pressure 118/62 O2 Sat by Pulse 95 Oximetry (%) Vital Signs 07/02/16 07/02/16 07/02/16 15:38 15:39 15:40 Pulse Rate 72 94 H 89 Respiratory 20 20 Rate Blood Pressure 120/59 78/43 O2 Sat by Pulse 82 L Oximetry (%) LYING DOWN STANDING SITTING 07/02/16 15:41 Pulse Rate 94 H Respiratory Rate Blood Pressure O2 Sat by Pulse 78 L Oximetry (%) STANDING Intake & Output 06/30/16 07/01/16 07/02/16 07/03/16 07:59 07:59 07:59 07:59 Intake Total 1100 660 237 Output Total 200 850 300 Balance 900 -190 -63 Constitutional: Yes: Well Nourished, No Distress, Calm Cardiovascular: Yes: Regular Rate and Rhythm, Murmur (2/6 early CHAVO lusb), S1, S2. No: Gallop No JVD elevation Respiratory: Yes: bibasilar crackles. No: Accessory Muscle Use, Rales, Wheezes Extremities: No: Cold Edema: No Neurological: Yes: Alert, Oriented Psychiatric: No: Agitated Labs: CBC, BMP 07/02/16 06:38 07/02/16 06:38 Assessment/Plan ec04/16/14: nsr, nl intervals, non-specific t wave flattening in inferior and lateral leads in comparison to priors. a/p: 85 f hx htn, hld, hypothyroid, ckd, cad s/p 4 pci's (last was approx > 5 yrs ago ), here with LE fracture s/p repair with left hip intramedullary nail on 06/26. Intertrochanteric fracture/Pre-operative clearance - surgery 06/26 - No active cardiac issues/sx's. Murmur at sternal border, but no signs of symptomatic or decompensated valvular disease. No further CV testing recommended prior to surgery. RCRI 1, but with low functional capacity. Patient CV risk estimated as low-intermediate. - 07/01: hgb 7s on 06/28--has been stable s/p PRBCs for 48 hrs now - resume prior ASA on 07/02 - 07/02 BUN progressively rising. Obtained orthostatics and sys bp dropped to 70 's. Patient also with hypoxia. Will hold lasix and nifedipine. CXR in am to assess hypoxia (atelectasis vs. other etiology). Currently low suspicion for pulmonary edema as etiology. cad s/p remote pci: - No suspected acs here, no angina. - con't crestor. anti-anginals. - ASA resume d 07/02, as above. Monitor hgb. mgm't of anemia per pmd. murmur: - benign features on exam - routine outpt f/u (+/- echo) with dr murray htn: - bp well controlledm but pt orthostatic. Will hold nifedipine. Con't metoprolol. Con't to monitor. CKD: - renal fxn currently stable vs prior range in computer
--- NOTE | 2016-07-02 18:15 | PN ---
Progress Note, Physician History of Present Illness: Pt. w/o CP, SOB, palp., dizziness; pt. with left groin pain with leg movements- getting better.; pt feel left leg weak, heavy. Pt is s/p Left hip ORIF - Current Medication List Current Medications: Active Medications Acetaminophen (Tylenol -) 650 mg PO Q6H PRN PRN Reason: PAIN Last Admin: 07/01/16 17:36 Dose: 650 mg Acetaminophen (Tylenol -) 325 mg PO Q6H PRN PRN Reason: PAIN Last Admin: 06/30/16 08:59 Dose: 325 mg Aspirin (Ecotrin -) 81 mg PO DAILY [facility] Last Admin: 07/02/16 10:37 Dose: 81 mg Calcium Carbonate/Cholecalciferol (Os-Yvon 500+D -) 1 tab PO BID [facility] Last Admin: 07/02/16 10:37 Dose: 1 tab Docusate Sodium (Colace -) 100 mg PO TID [facility] Last Admin: 07/02/16 13:53 Dose: 100 mg Enoxaparin Sodium (Lovenox -) 40 mg SQ DAILY [facility] Last Admin: 07/02/16 10:37 Dose: 40 mg Ferrous Sulfate (Feosol -) 325 mg PO BID [facility] Last Admin: 07/02/16 10:37 Dose: 325 mg Magnesium Hydroxide (Milk Of Magnesia -) 30 ml PO DAILY PRN PRN Reason: CONSTIPATION Last Admin: 06/30/16 18:00 Dose: 30 ml Metoprolol Succinate (Toprol Xl -) 50 mg PO DAILY [facility] Last Admin: 07/02/16 10:38 Dose: 50 mg Ondansetron HCl (Zofran Injection) 4 mg IVPB Q8H PRN PRN Reason: NAUSEA Oxycodone HCl (Roxicodone -) 5 mg PO Q6H PRN PRN Reason: PAIN SCALE 1-5 Last Admin: 06/30/16 08:58 Dose: 5 mg Rosuvastatin Calcium (Crestor -) 10 mg PO HS [facility] Last Admin: 07/01/16 21:37 Dose: 10 mg - Objective Vital Signs: Vital Signs Temperature 98.0 F 07/02/16 08:00 Pulse Rate 94 H 07/02/16 15:41 Respiratory Rate 20 07/02/16 15:39 Blood Pressure 78/43 07/02/16 15:39 O2 Sat by Pulse Oximetry (%) 78 L 07/02/16 15:41 Constitutional: Yes: No Distress, Calm Cardiovascular: Yes: Regular Rate and Rhythm, S1, S2 Respiratory: Yes: Regular, CTA Bilaterally, Other (coarse at abses) Gastrointestinal: Yes: Normal Bowel Sounds, Soft. No: Tenderness Edema: No Neurological: Yes: Alert, Oriented, Weakness (of the left foot- to f/u with Ortho) Labs: CBC, BMP 07/02/16 06:38 07/02/16 06:38 INR, PTT INR 1.12 (0.82-1.09) 06/25/16 11:10 Problem List - Problems (1) Fracture of hip, left, closed Assessment/Plan: Fracture secondary to fall- mechanical cause Ortho consult and f/u appreciated, s/p ORIF Cardio consult and f/u appreciated. Code(s): S72.002A - FRACTURE OF UNSP PART OF NECK OF LEFT FEMUR, INIT Qualifiers: Encounter type: initial encounter Qualified Code(s): S72.002A - Fracture of unspecified part of neck of left femur, initial encounter for closed fracture (2) CAD S/P percutaneous coronary angioplasty Assessment/Plan: s/p PCI with stents. Code(s): I25.10 - ATHSCL HEART DISEASE OF [place] CORONARY ARTERY W/O ANG PCTRS Z98.61 - CORONARY ANGIOPLASTY STATUS (3) HTN (hypertension) Assessment/Plan: cont meds. controlled. Code(s): I10 - ESSENTIAL (PRIMARY) HYPERTENSION (4) Hyperlipidemia Assessment/Plan: on statin Code(s): E78.5 - HYPERLIPIDEMIA, UNSPECIFIED (5) Renal artery stenosis Assessment/Plan: s/p stent placement Code(s): I70.1 - ATHEROSCLEROSIS OF RENAL ARTERY (6) Chronic renal disease Assessment/Plan: Creatinine stable. To monitor. Code(s): N18.9 - CHRONIC KIDNEY DISEASE, UNSPECIFIED (7) Anemia Assessment/Plan: s/p (3 units total) PRBC transfusion. Trending down H/H; to monitor Code(s): D64.9 - ANEMIA, UNSPECIFIED (8) Hypokalemia due to inadequate potassium intake Assessment/Plan: Repleted. I encourage pt to increase PO food intake. F/u K level in AM Code(s): E87.6 - HYPOKALEMIA
[2016-07-02] MEDS: oxyCODONE HCL 5 MG TABLET PO PRN (21:45)
[2016-07-02] MEDS: ROSUVASTATIN CA 10 MG TABLET (FP) PO SCH (21:45)
[2016-07-02] MEDS: ACETAMINOPHEN 325 MG TABLET (FP) PO PRN (21:46)
[2016-07-03] MEDS: oxyCODONE HCL 5 MG TABLET PO PRN ×2 (04:13→11:13)
[2016-07-03] MEDS: ACETAMINOPHEN 325 MG TABLET (FP) PO PRN ×2 (04:13→11:13)
[2016-07-03] MEDS: DOCUSATE SODIUM 100 MG CAPSULE (FP) PO SCH ×3 (05:52→21:56)
[2016-07-03 07:52] LABS: MCH 30.6 pg (25.7-33.7); MCHC 33.5 g/dl (32.0-36.0); MEAN CELL VOLUME 91.3 fl (80-96); PLATELET COUNT 120 K/MM3 (134-434); RDW 23.3 % (11.6-15.6); WHITE BLOOD COUNT 7.5 K/mm3 (4.0-10.0)
[2016-07-03 08:20] LABS: CALCIUM 8.5 mg/dL (8.5-10.1); CREATININE 1.8 mg/dL (0.55-1.02); MAGNESIUM 2.7 mg/dL (1.8-2.4)
[2016-07-03] MEDS: FERROUS SO4 325 MG TABLET (FP) PO SCH ×2 (09:44→21:56)
[2016-07-03] MEDS: CALCIUM 500MG/VIT-D 200 UNITS COMBO TABLET (FP) PO SCH ×2 (09:44→21:56)
[2016-07-03] MEDS: METOPROLOL SUCCINATE 50 MG TAB.SR.24H (FP) PO SCH (09:44)
[2016-07-03] MEDS: ASPIRIN COATED 81 MG TABLET.EC PO SCH (09:44)
[2016-07-03] MEDS: ENOXAPARIN NA (PORCINE) 40 MG/0.4 ML DISP.SYRIN SQ SCH (09:44)
--- NOTE | 2016-07-03 10:37 | PN ---
Progress Note, Physician History of Present Illness: Pt. w/o CP, SOB, palp., dizziness; pt. with left groin pain with leg movements- getting better.; pt feels left leg weak, heavy. Pt is s/p Left hip ORIF on 06/26/2016 - Current Medication List Current Medications: Active Medications Acetaminophen (Tylenol -) 650 mg PO Q6H PRN PRN Reason: PAIN Last Admin: 07/01/16 17:36 Dose: 650 mg Acetaminophen (Tylenol -) 325 mg PO Q6H PRN PRN Reason: PAIN Last Admin: 07/03/16 04:13 Dose: 325 mg Aspirin (Ecotrin -) 81 mg PO DAILY [facility] Last Admin: 07/03/16 09:44 Dose: 81 mg Calcium Carbonate/Cholecalciferol (Os-Yvon 500+D -) 1 tab PO BID [facility] Last Admin: 07/03/16 09:44 Dose: 1 tab Docusate Sodium (Colace -) 100 mg PO TID [facility] Last Admin: 07/03/16 05:52 Dose: 100 mg Enoxaparin Sodium (Lovenox -) 40 mg SQ DAILY [facility] Last Admin: 07/03/16 09:44 Dose: 40 mg Ferrous Sulfate (Feosol -) 325 mg PO BID [facility] Last Admin: 07/03/16 09:44 Dose: 325 mg Magnesium Hydroxide (Milk Of Magnesia -) 30 ml PO DAILY PRN PRN Reason: CONSTIPATION Last Admin: 06/30/16 18:00 Dose: 30 ml Metoprolol Succinate (Toprol Xl -) 50 mg PO DAILY [facility] Last Admin: 07/03/16 09:44 Dose: 50 mg Ondansetron HCl (Zofran Injection) 4 mg IVPB Q8H PRN PRN Reason: NAUSEA Oxycodone HCl (Roxicodone -) 5 mg PO Q6H PRN PRN Reason: PAIN SCALE 1-5 Last Admin: 07/03/16 04:13 Dose: 5 mg Rosuvastatin Calcium (Crestor -) 10 mg PO [facility] Last Admin: 07/02/16 21:45 Dose: 10 mg - Objective Vital Signs: Vital Signs Temperature 97.8 F 07/03/16 07:08 Pulse Rate 72 07/03/16 07:08 Respiratory Rate 18 07/03/16 07:08 Blood Pressure 101/60 07/03/16 07:08 O2 Sat by Pulse Oximetry (%) 78 L 07/02/16 20:19 Constitutional: Yes: No Distress, Calm Cardiovascular: Yes: Regular Rate and Rhythm, S1, S2 Respiratory: Yes: Regular, CTA Bilaterally. No: Rales Gastrointestinal: Yes: Normal Bowel Sounds, Soft, Palpable Mass. No: Tenderness Extremities: Yes: Other (left leg larger than right) Edema: No Labs: CBC, BMP 07/03/16 06:30 07/03/16 06:30 INR, PTT INR 1.12 (0.82-1.09) 06/25/16 11:10 Problem List - Problems (1) Fracture of hip, left, closed Assessment/Plan: Fracture secondary to fall- mechanical cause Ortho consult and f/u appreciated, s/p left hip ORIF in 06/26/16 Cardio consult and f/u appreciated. Code(s): S72.002A - FRACTURE OF UNSP PART OF NECK OF LEFT FEMUR, INIT Qualifiers: Encounter type: initial encounter Qualified Code(s): S72.002A - Fracture of unspecified part of neck of left femur, initial encounter for closed fracture (2) CAD S/P percutaneous coronary angioplasty Assessment/Plan: s/p PCI with stents. Code(s): I25.10 - ATHSCL HEART DISEASE OF [place] CORONARY ARTERY W/O ANG PCTRS Z98.61 - CORONARY ANGIOPLASTY STATUS (3) HTN (hypertension) Assessment/Plan: cont meds. controlled. Code(s): I10 - ESSENTIAL (PRIMARY) HYPERTENSION (4) Hyperlipidemia Assessment/Plan: on statin Code(s): E78.5 - HYPERLIPIDEMIA, UNSPECIFIED (5) Renal artery stenosis Code(s): I70.1 - ATHEROSCLEROSIS OF RENAL ARTERY (6) Chronic renal disease Assessment/Plan: Creatinine stable. To monitor. Code(s): N18.9 - CHRONIC KIDNEY DISEASE, UNSPECIFIED (7) Anemia Assessment/Plan: s/p (3 units total) PRBC transfusion. Trending down H/H; to transfuse PRBC( total of 2 units, few hours apart; to avoid Lasix IV between units as BUN trending up Code(s): D64.9 - ANEMIA, UNSPECIFIED (8) Hypokalemia due to inadequate potassium intake Assessment/Plan: Repleted. I encourage pt to increase PO food intake. F/u K level in AM Code(s): E87.6 - HYPOKALEMIA Assessment/Plan Pt.'s condition was d/w CM and pt's nurse. Post-op anemia that requires again PRBC transfusion; DC to rehab to be postponed for now. AM labs
--- NOTE | 2016-07-03 12:15 | PN ---
Progress Note (short form) - Note Progress Note: Chief Complaint: CAD History of Present Illness: nifedipine and lasix held today for profound orthostasis noted yesterday afternoon. hypotensive overnight. BUN continues to rise slightly today. hgb slightly lower today, no bleeding. no cp, sob, palpitations; still with some hip pain and ankle pain. Still with poor PO intake. + dizziness on sitting up. Current Medications Acetaminophen (Tylenol -) 650 mg PO Q6H PRN PRN Reason: PAIN Last Admin: 07/03/16 11:13 Dose: 650 mg Acetaminophen (Tylenol -) 325 mg PO Q6H PRN PRN Reason: PAIN Last Admin: 07/03/16 04:13 Dose: 325 mg Aspirin (Ecotrin -) 81 mg PO DAILY [facility] Last Admin: 07/03/16 09:44 Dose: 81 mg Calcium Carbonate/Cholecalciferol (Os-Yvon 500+D -) 1 tab PO BID [facility] Last Admin: 07/03/16 09:44 Dose: 1 tab Docusate Sodium (Colace -) 100 mg PO TID [facility] Last Admin: 07/03/16 05:52 Dose: 100 mg Enoxaparin Sodium (Lovenox -) 40 mg SQ DAILY [facility] Last Admin: 07/03/16 09:44 Dose: 40 mg Ferrous Sulfate (Feosol -) 325 mg PO BID [facility] Last Admin: 07/03/16 09:44 Dose: 325 mg Magnesium Hydroxide (Milk Of Magnesia -) 30 ml PO DAILY PRN PRN Reason: CONSTIPATION Last Admin: 06/30/16 18:00 Dose: 30 ml Metoprolol Succinate (Toprol Xl -) 50 mg PO DAILY [facility] Last Admin: 07/03/16 09:44 Dose: 50 mg Ondansetron HCl (Zofran Injection) 4 mg IVPB Q8H PRN PRN Reason: NAUSEA Oxycodone HCl (Roxicodone -) 5 mg PO Q6H PRN PRN Reason: PAIN SCALE 1-5 Last Admin: 07/03/16 11:13 Dose: 5 mg Rosuvastatin Calcium (Crestor -) 10 mg PO HS [facility] Last Admin: 07/02/16 21:45 Dose: 10 mg Vital Signs - 24 hr 07/02/16 07/02/16 07/02/16 15:38 15:39 15:40 Temperature Pulse Rate 72 94 H 89 Respiratory 20 20 Rate Blood Pressure 120/59 78/43 O2 Sat by Pulse 82 L Oximetry (%) 07/02/16 07/02/16 07/02/16 15:41 20:19 20:28 Temperature 97.7 F Pulse Rate 94 H 88 Respiratory 20 20 Rate Blood Pressure 101/55 O2 Sat by Pulse 78 L 78 L Oximetry (%) 07/03/16 07/03/16 07/03/16 07:08 09:00 10:00 Temperature 97.8 F Pulse Rate 72 58 L Respiratory 18 18 Rate Blood Pressure 101/60 122/53 O2 Sat by Pulse 78 L Oximetry (%) Intake & Output 07/01/16 07/02/16 07/03/16 07/04/16 07:59 07:59 07:59 07:59 Intake Total 660 237 500 Output Total 850 300 400 Balance -190 -63 100 Constitutional: Yes: Well Nourished, No Distress, Calm Cardiovascular: Yes: Regular Rate and Rhythm, Murmur (2/6 early CHAVO lusb), S1, S2. No: Gallop No JVD elevation Respiratory: Yes: bibasilar crackles. No: Accessory Muscle Use, Rales, Wheezes Extremities: No: Cold Edema: No Neurological: Yes: Alert, Oriented Psychiatric: No: Agitated Labs: CBC, BMP 07/03/16 06:30 07/03/16 06:30 Assessment/Plan ec04/16/14: nsr, nl intervals, non-specific t wave flattening in inferior and lateral leads in comparison to priors. CXR 07/03: images and report reviewed. B apical pleural thickening, otherwise clear lung leos, unchanged from priors. a/p: 85 f hx htn, hld, hypothyroid, ckd, cad s/p 4 pci's (last was approx > 5 yrs ago ), here with LE fracture s/p repair with left hip intramedullary nail on 06/26. Intertrochanteric fracture/Pre-operative clearance - surgery 06/26 - No active cardiac issues/sx's. Murmur at sternal border, but no signs of symptomatic or decompensated valvular disease. No further CV testing recommended prior to surgery. RCRI 1, but with low functional capacity. Patient CV risk estimated as low-intermediate. - 07/01: hgb 7s on 06/28--has been stable s/p PRBCs for 48 hrs now - resume prior ASA on 07/02 - 07/02 BUN progressively rising. Obtained orthostatics and sys bp dropped to 70 's. Patient also with hypoxia. Will hold lasix and nifedipine. CXR in am to assess hypoxia (atelectasis vs. other etiology). Currently low suspicion for pulmonary edema as etiology. - 07/03: Monitor bp/hr off of nifedipine. CXR unchanged. Incentive spirometry. Mgm't of anemia per pmd, surgery. cad s/p remote pci: - No suspected acs here, no angina. - con't crestor. anti-anginals. - ASA resumed 07/02, as above. Monitor hgb. mgm't of anemia per pmd. murmur: - benign features on exam - routine outpt f/u (+/- echo) with dr murray htn: - bp well controlled but pt orthostatic. Holding nifedipine. Con't metoprolol. Con't to monitor. CKD: - renal fxn currently stable vs prior range in computer. BUN rising, possibly related to poor po intake.
[2016-07-03] MEDS: ROSUVASTATIN CA 10 MG TABLET (FP) PO SCH (21:55)
[2016-07-04] MEDS: DOCUSATE SODIUM 100 MG CAPSULE (FP) PO SCH (05:44)
[2016-07-04 06:14] VITALS: TEMP 98
[2016-07-04 07:27] LABS: MCH 29.3 pg (25.7-33.7); MCHC 34.1 g/dl (32.0-36.0); MEAN CELL VOLUME 85.9 fl (80-96); MEAN PLT VOLUME 8.2 fl (7.5-11.1); PLATELET COUNT 126 K/MM3 (134-434); RDW 23.2 % (11.6-15.6); WHITE BLOOD COUNT 7.1 K/mm3 (4.0-10.0)
[2016-07-04 08:04] LABS: CALCIUM 8.4 mg/dL (8.5-10.1); CREATININE 1.5 mg/dL (0.55-1.02)
[2016-07-04] MEDS: FERROUS SO4 325 MG TABLET (FP) PO SCH (10:14)
[2016-07-04] MEDS: CALCIUM 500MG/VIT-D 200 UNITS COMBO TABLET (FP) PO SCH (10:14)
[2016-07-04] MEDS: ASPIRIN COATED 81 MG TABLET.EC PO SCH (10:14)
[2016-07-04] MEDS: METOPROLOL SUCCINATE 50 MG TAB.SR.24H (FP) PO SCH (10:14)
[2016-07-04] MEDS ORDERED: oxyCODONE HCL 5 MG TABLET PO PRN (11:11)
[2016-07-04] MEDS ORDERED: ENOXAPARIN NA (PORCINE) 40 MG/0.4 ML DISP.SYRIN SQ SCH (11:15)
--- NOTE | 2016-07-04 11:19 | PN ---
Progress Note (short form) - Note Progress Note: s: no cp sob palps; no dizzy this AM but has not been moving around much yet o: Vital Signs Period Temp Pulse Resp BP Sys/[place] Pulse Ox Last 24 Hr 97.4 F-98.0 F 54-97 16-18 103-138/48-62 96 Constitutional: Yes: Well Nourished, No Distress, Calm Cardiovascular: Yes: Regular Rate and Rhythm, Murmur (2/6 early CHAVO lusb), S1, S2. No: Gallop No JVD elevation Respiratory: Yes: cta bl nl eff No: Accessory Muscle Use, Rales, Wheezes Extremities: No: Cold Edema: No e/c/c Neurological: [id number] Psychiatric: No: Agitated no jaundice diaphoresis Current Medications Generic Name Dose Route Start Last Admin Trade Name Freq PRN Reason Stop Dose Admin Acetaminophen 650 mg 06/26/16 19:01 07/03/16 11:13 Tylenol - PO 650 mg Q6H PRN Administration PAIN Acetaminophen 325 mg 06/26/16 19:14 07/03/16 04:13 Tylenol - PO 325 mg Q6H PRN Administration PAIN Aspirin 81 mg 07/02/16 10:00 07/04/16 10:14 Ecotrin - PO 81 mg DAILY [facility] Administration Calcium Carbonate/Cholecalciferol 1 tab 06/26/16 22:00 07/04/16 10:14 Os-Yvon 500+D - PO 1 tab BID [facility] Administration Docusate Sodium 100 mg 06/26/16 22:00 07/04/16 05:44 Colace - PO 100 mg TID [facility] Administration Enoxaparin Sodium 40 mg 07/04/16 11:15 Lovenox - SQ DAILY [facility] Ferrous Sulfate 325 mg 06/26/16 22:00 07/04/16 10:14 Feosol - PO 325 mg BID [facility] Administration Magnesium Hydroxide 30 ml 06/26/16 19:01 06/30/16 18:00 Milk Of Magnesia - PO 30 ml DAILY PRN Administration CONSTIPATION Metoprolol Succinate 50 mg 06/28/16 10:00 07/04/16 10:14 Toprol Xl - PO 50 mg DAILY [facility] Administration Ondansetron HCl 4 mg 06/26/16 19:21 Zofran Injection IVPB Q8H PRN NAUSEA Oxycodone HCl 5 mg 07/04/16 11:11 Roxicodone - PO Q6H PRN PAIN Rosuvastatin Calcium 10 mg 06/26/16 22:00 07/03/16 21:55 Crestor - PO 10 mg HS [facility] Administration CBC, BMP 07/04/16 05:38 07/04/16 05:38 ec04/16/14: nsr, nl intervals, non-specific t wave flattening in inferior and lateral leads in comparison to priors. CXR 07/03: images and report reviewed. B apical pleural thickening, otherwise clear lung leos, unchanged from priors. a/p: 85 f hx htn, hld, hypothyroid, ckd, cad s/p 4 pci's (last was approx > 5 yrs ago ), here with LE fracture s/p repair with left hip intramedullary nail on 06/26. Intertrochanteric fracture/Pre-operative clearance - surgery 06/26 - surgery following - cont Incentive spirometry. Mgm't of anemia per pmd, surgery. cad s/p remote pci: - No suspected acs here, no angina. - con't crestor. anti-anginals, asa murmur: - benign features on exam - routine outpt f/u (+/- echo) with dr murray htn: - bp well controlled but pt orthostatic so holding nifedipine. Today bp controlled and pt w/o dizziness. Monitor sxs. Con't metoprolol. CKD: - renal fxn currently stable vs prior range in computer.
[2016-07-04 11:30] VITALS: BP 132/64; PULSE 66
--- NOTE | 2016-07-04 11:34 | DS ---
Physical Examination Vital Signs: Vital Signs Temperature 98.0 F 07/04/16 06:13 Pulse Rate 60 07/04/16 06:13 Respiratory Rate 18 07/04/16 06:13 Blood Pressure 105/55 07/04/16 06:13 O2 Sat by Pulse Oximetry (%) 95 07/04/16 09:00 Findings/Remarks: Pt. w/o SOB, cough, CP, Palpitations, Abd. pain, nausea, vomiting. Pt.'s left leg still painful- pt. was reminded that had surgery to the hip Constitutional: Yes: No Distress, Calm Cardiovascular: Yes: Regular Rate and Rhythm, Murmur, S1, S2 Respiratory: Yes: Regular, Other (atelectasis at both bases) Gastrointestinal: Yes: Normal Bowel Sounds, Soft. No: Palpable Mass, Tenderness Edema: LLE: Trace Neurological: Yes: Alert, Other (fogetful) Labs: CBC, BMP 07/04/16 05:38 07/04/16 05:38 Discharge Summary Reason For Visit: HIP FRACTURE Current Active Problems Anemia (Acute) CAD S/P percutaneous coronary angioplasty (Acute) Chronic renal disease (Acute) Fracture of hip, left, closed (Acute) HTN (hypertension) (Acute) Hyperlipidemia (Acute) Hypokalemia due to inadequate potassium intake (Acute) Renal artery stenosis (Acute) Procedures: Principal: Left hip ORIF. PRBC transfusions. Hip XR. CXR Hospital Course: Pt came to ER s/p fall at home, found to have left intertrochanteric fracture; pt. was seen by Cardio ( Mandy Grubbs/ [facility]), Ortho ( Dr. Cook); pt. had ORIF of left hip; pt. with postop anemia, received PRBC transfusion in two different occasions (tolerated well). Pt. to be transferred to Rehab today. Pt would need CBC, CMP this week. Pt would need to f/u with Dr. Cook ( Ortho); please call his office for appointment. - Instructions Diet, Activity, Other Instructions: Low salt, Low cholesterol CBC, CMP this week. Pt would need to f/u with Dr. Cook ( Ortho); please call his office for appointment Referrals: Willis Harman MD [Primary Care Provider] - (as scheduled. Dr. Harman is patient BLANKMAKER) Arnaldo Torres MD [Staff Physician] - (1 to 2 weeks after Rehab DC) - Home Medications Comprehensive Discharge Medication List: Ambulatory Orders Acetaminophen [Tylenol .Regular Strength -] 650 mg PO Q6H PRN #0 tablet Aspirin Coated [Ecotrin -] 81 mg PO DAILY tablet.ec 07/04/16 Calcium 500Mg/Vit-D 200 Units [Os-Yvon 500+D -] 1 tab PO BID tab 07/04/16 Docusate Sodium [Colace -] 100 mg PO TID capsule 07/04/16 Enoxaparin [Lovenox -] 40 mg SQ DAILY disp.syrin 07/04/16 Ferrous Sulfate [Feosol] 325 mg PO BID ud 07/04/16 Magnesium Hydrox 2400MG/30Ml [Milk of Magnesia -] 30 ml PO DAILY PRN #0 cup Metoprolol Succinate [Toprol XL -] 50 mg PO DAILY tab.sr.24h 07/04/16 Oxycodone HCl [Roxicodone -] 5 mg PO Q6H PRN #60 tablet MDD 4 07/04/16 Rosuvastatin [Crestor -] 10 mg PO HS tablet 07/04/16
[2016-07-04] MEDS: ACETAMINOPHEN 325 MG TABLET (FP) PO PRN (11:43)
--- NOTE | 2016-07-16 09:28 | PN ---
Progress Note (short form) - Note Progress Note: Addedum to diagnosis list- admission 06/25/16: Acute blood loss anemia; it required few PRBC transfusions postop. Problem List - Problems (1) Fracture of hip, left, closed Code(s): S72.002A - FRACTURE OF UNSP PART OF NECK OF LEFT FEMUR, INIT Qualifiers: Encounter type: initial encounter Qualified Code(s): S72.002A - Fracture of unspecified part of neck of left femur, initial encounter for closed fracture (2) CAD S/P percutaneous coronary angioplasty Code(s): I25.10 - ATHSCL HEART DISEASE OF [place] CORONARY ARTERY W/O ANG PCTRS Z98.61 - CORONARY ANGIOPLASTY STATUS (3) HTN (hypertension) Code(s): I10 - ESSENTIAL (PRIMARY) HYPERTENSION (4) Hyperlipidemia Code(s): E78.5 - HYPERLIPIDEMIA, UNSPECIFIED (5) Renal artery stenosis Code(s): I70.1 - ATHEROSCLEROSIS OF RENAL ARTERY (6) Chronic renal disease Code(s): N18.9 - CHRONIC KIDNEY DISEASE, UNSPECIFIED (7) Anemia Code(s): D64.9 - ANEMIA, UNSPECIFIED (8) Hypokalemia due to inadequate potassium intake Code(s): E87.6 - HYPOKALEMIA
== END 2016-07-04 13:10 | DRG 481 ==
LOC: JER 10:24 → JERBED 13:16 → J6S 20:15
PROVIDERS: ADMIT Specialist; ATTEND Specialist
PROC: 30233N1 Transfusion of Nonautologous Red Blood Cells into Peripheral Vein, Percutaneous Approach (ICD-10-PCS; 2016-06-26)
PROC: 0QS704Z Reposition Left Upper Femur with Internal Fixation Device, Open Approach (ICD-10-PCS; principal; 2016-06-26 16:30)
DX: S72.142A Displaced intertrochanteric fracture of left femur, initial encounter for closed fracture (principal); D62 Acute posthemorrhagic anemia; I25.10 Atherosclerotic heart disease of native coronary artery without angina pectoris; E03.9 Hypothyroidism, unspecified; E78.00 Pure hypercholesterolemia, unspecified; D64.9 Anemia, unspecified; I70.1 Atherosclerosis of renal artery; I12.9 Hypertensive chronic kidney disease with stage 1 through stage 4 chronic kidney disease, or unspecified chronic kidney disease; N18.9 Chronic kidney disease, unspecified; E87.6 Hypokalemia; R01.1 Cardiac murmur, unspecified; W18.39XA Other fall on same level, initial encounter; Y93.89 Activity, other specified; Z95.5 Presence of coronary angioplasty implant and graft; Y92.098 Other place in other non-institutional residence as the place of occurrence of the external cause
CPT/HCPCS: 36415; 36430; 71010-TC; 71020-TC; 73523-TC; 73610-TC-LT; 73630-TC-LT; 76001-TC; 80048; 80053; 81003; 81015; 83735; 85025; 85027; 85610; 86850; 86900; 86901; 86922; 93005; 93010; 94760; 97116-GP; 97162-PG; 99284-25; P9038; P9058

== ENCOUNTER 2016-12-11 11:11 | Emergency (ER) | payer OTHER, BC ==
[2016-12-11 11:34] VITALS: BMI 20.5
[2016-12-11 12:19] LABS: BASOPHIL 0.9 % (0-2.0); EOSINOPHIL 4.3 % (0-4.5); MCH 33.4 pg (25.7-33.7); MCHC 33.6 g/dl (32.0-36.0); MEAN CELL VOLUME 99.5 fl (80-96); MEAN PLT VOLUME 8.3 fl (7.5-11.1); NEUTROPHILS 54.6 % (42.8-82.8); PLATELET COUNT 123 K/MM3 (134-434); RDW 14.8 % (11.6-15.6)
[2016-12-11 12:24] LABS: URINE APPEARANCE CLEAR; URINE BILIRUBIN NEGATIVE (NEGATIVE); URINE BLOOD 1+ (NEGATIVE); URINE COLOR STRAW; URINE GLUCOSE (UA) NEGATIVE (NEGATIVE); URINE KETONE NEGATIVE (NEGATIVE); URINE LEUK ESTERASE NEGATIVE (NEGATIVE); URINE NITRITE NEGATIVE (NEGATIVE); URINE UROBILINOGEN NEGATIVE mg/dL (0.2-1.0)
[2016-12-11 12:28] LABS: URINE PROTEIN 2+ (NEGATIVE)
[2016-12-11 12:45] LABS: ALBUMIN 3.4 g/dl (3.4-5.0); ANION GAP 9 (8-16); BILIRUBIN,TOTAL 0.8 mg/dL (0.2-1.0); CO2 26 mmol/L (21-32); CREATININE 1.3 mg/dL (0.55-1.02); GLUCOSE,RANDOM 87 mg/dL (74-106); SGOT/AST 26 U/L (15-37); SGPT/ALT 16 U/L (12-78); TOT PROT 7.5 g/dl (6.4-8.2)
[2016-12-11 12:47] LABS: ALK PHOS 85 U/L (45-117); TROPONIN I < 0.02 ng/ml (0.00-0.05)
[2016-12-11] MEDS ORDERED: amLODIPine BESYLATE 2.5 MG TABLET (FP) PO ONE ×2 (14:17→15:12)
[2016-12-11] MEDS ORDERED: amLODIPine BESYLATE 5 MG TABLET (FP) ONE ×2 (14:21→15:14)
--- NOTE | 2016-12-11 14:23 | PDOC ---
History of Present Illness - General History Source: Patient Exam Limitations: No Limitations ( ) - History of Present Illness Initial Comments: 12/11/16 14:34 The patient is an 86 year old female with past medical history of hypertension, hyperlipidemia, CAD s/p stents, left lung CA s/p lumpectomy, and gout who presents to the ED with complaints of elevated blood pressure after missing doses of her hypertension medication. Despite taking her doses this morning, the patients blood pressure was elevated when visiting nurse services arrived. The patient was instructed to come to the ED as per her PCP. She denies any chest pain, shortness of breath, headache or lightheadedness. She denies any recent illness, fever, or chills. <Loni Fields - Last Filed: 12/11/16 14:55> - General History Source: Patient, Family Exam Limitations: No Limitations <Tyler Hodges - Last Filed: 12/11/16 15:32> - General Chief Complaint: Blood Pressure Problem Stated Complaint: BLOOD PRESSURE PROBLEM Time Seen by Provider: 12/11/16 11:34 Past History <Loni Fields - Last Filed: 12/11/16 14:55> - Past Medical History Anemia: Yes Cardiac Disorders: Yes HTN: Yes Hypercholesterolemia: Yes Thyroid Disease: Yes (hypothyroidism) - Surgical History Appendectomy: Yes Cardiac Surgery: Yes (stents x 3) - Immunization History Immunization Up to Date: Yes - Psycho/Social/Smoking Cessation Hx Anxiety: No Suicidal Ideation: No Smoking Status: No Smoking History: Former smoker Have you smoked in the past 12 months: No Number of Cigarettes Smoked Daily: 0 Information on smoking cessation initiated: No Hx Alcohol Use: No Drug/Substance Use Hx: No Substance Use Type: None Hx Substance Use Treatment: No <Tyler Hodges - Last Filed: 12/11/16 15:32> - Past Medical History Allergies/Adverse Reactions: Allergies Allergy/AdvReac Type Severity Reaction Status Date / Time Penicillins Allergy Verified 12/11/16 11:34 Home Medications: Ambulatory Orders Aspirin Coated [Ecotrin -] 81 mg PO DAILY tablet.ec 07/04/16 Metoprolol Succinate [Toprol XL -] 50 mg PO DAILY tab.sr.24h 07/04/16 Nifedipine ER [Procardia XL -] 90 mg PO DAILY #30 tab.er.24 12/11/16 Nifedipine [Nifedipine ER] 60 mg PO DAILY 12/11/16 Rosuvastatin [Crestor -] 5 mg PO DAILY 12/11/16 Review of Systems - Review of Systems Able to Perform ROS?: Yes Comments:: 12/11/16 14:34 GENERAL/CONSTITUTIONAL: No fever or chills. No weakness. HEAD, EYES, EARS, NOSE AND THROAT: No change in vision. No ear pain or discharge. No sore throat. CARDIOVASCULAR: No chest pain or shortness of breath. RESPIRATORY: No cough, wheezing, or hemoptysis. GASTROINTESTINAL: No nausea, vomiting, diarrhea or constipation. GENITOURINARY: No dysuria, frequency, or change in urination. MUSCULOSKELETAL: No joint or muscle swelling or pain. No neck or back pain. SKIN: No rash NEUROLOGIC: No headache, vertigo, loss of consciousness, or change in strength/ sensation. ENDOCRINE: No increased thirst. No abnormal weight change. HEMATOLOGIC/LYMPHATIC: No anemia, easy bleeding, or history of blood clots. ALLERGIC/IMMUNOLOGIC: No hives or skin allergy. All Other Systems: Reviewed and Negative <Loni Fields - Last Filed: 12/11/16 14:55> *Physical Exam - Vital Signs Last Vital Signs Temp Pulse Resp BP Pulse Ox 97.8 F 73 16 202/78 98 12/11/16 11:32 12/11/16 14:26 12/11/16 14:26 12/11/16 14:26 12/11/16 14:26 - Physical Exam Comments: 12/11/16 14:38 GENERAL: Awake and oriented x2, in no acute distress HEAD: No signs of trauma EYES: PERRLA, EOMI, sclera anicteric, conjunctiva clear ENT: Auricles normal inspection, hearing grossly normal, nares patent, oropharynx clear without exudates. Moist mucosa NECK: Normal ROM, supple, no lymphadenopathy, JVD, or masses LUNGS: Breath sounds equal, clear to auscultation bilaterally. No wheezes, and no crackles HEART: Regular rate and rhythm, normal S1 and S2, no murmurs, rubs or gallops ABDOMEN: Soft, nontender, normoactive bowel sounds. No guarding, no rebound. No masses EXTREMITIES: Normal range of motion, Mild chronic trace pitting edema of LUE and bilateral LE. No clubbing or cyanosis. No cords, erythema, or tenderness NEUROLOGICAL: Cranial nerves II through XII grossly intact. Normal speech, normal gait SKIN: Warm, Dry, normal turgor, no rashes or lesions noted. <Loni Fields - Last Filed: 12/11/16 14:55> - Vital Signs Last Vital Signs Temp Pulse Resp BP Pulse Ox 97.8 F 69 16 194/82 97 12/11/16 11:32 12/11/16 12:45 12/11/16 12:45 12/11/16 12:45 12/11/16 12:45 <Tyler Hodges - Last Filed: 12/11/16 15:32> Heart Score/ECG Review #1 ECG reviewed & interpreted by me at: 13:00 12/11/16 14:20 NSR 65, Q wave III, no std/earl, normal axis, normal intervals, QTC 459 msec <Tyler Hodges - Last Filed: 12/11/16 15:32> ED Treatment Course - LABORATORY CBC & Chemistry Diagram: 12/11/16 12:08 12/11/16 12:08 - ADDITIONAL ORDERS Additional order review: Laboratory Results 12/11/16 12/11/16 12:08 12:08 Sodium 142 Potassium 3.9 Chloride 107 D Carbon Dioxide 26 Anion Gap 9 BUN 24 H D Creatinine 1.3 H Creat Clearance w eGFR 38.84 Random Glucose 87 Calcium 9.0 Total Bilirubin 0.8 AST 26 ALT 16 Alkaline Phosphatase 85 Creatine Kinase 81 Troponin I < 0.02 Total Protein 7.5 Albumin 3.4 Urine Color Straw Urine Appearance Clear Urine pH 6.0 Urine Protein 2+ H Urine Glucose (UA) Negative Urine Ketones Negative Urine Blood 1+ H Urine Nitrite Negative Urine Bilirubin Negative Urine Urobilinogen Negative Ur Leukocyte Esterase Negative 12/11/16 12:08 RBC 4.00 MCV 99.5 H MCHC 33.6 RDW 14.8 D MPV 8.3 Neutrophils % 54.6 D Lymphocytes % 32.4 D Monocytes % 7.8 Eosinophils % 4.3 Basophils % 0.9 - Medications Given in the ED: ED Medications Discontinued Medications Generic Name Dose Route Start Last Admin Trade Name Freq PRN Reason Stop Dose Admin Amlodipine Besylate 2.5 mg 12/11/16 14:17 12/11/16 14:26 Norvasc - PO 12/11/16 14:18 2.5 mg ONCE ONE Administration <Loni Fields - Last Filed: 12/11/16 14:55> - LABORATORY CBC & Chemistry Diagram: 12/11/16 12:08 12/11/16 12:08 - ADDITIONAL ORDERS Additional order review: Laboratory Results 12/11/16 12/11/16 12:08 12:08 Sodium 142 Potassium 3.9 Chloride 107 D Carbon Dioxide 26 Anion Gap 9 BUN 24 H D Creatinine 1.3 H Creat Clearance w eGFR 38.84 Random Glucose 87 Calcium 9.0 Total Bilirubin 0.8 AST 26 ALT 16 Alkaline Phosphatase 85 Creatine Kinase 81 Troponin I < 0.02 Total Protein 7.5 Albumin 3.4 Urine Color Straw Urine Appearance Clear Urine pH 6.0 Urine Protein 2+ H Urine Glucose (UA) Negative Urine Ketones Negative Urine Blood 1+ H Urine Nitrite Negative Urine Bilirubin Negative Urine Urobilinogen Negative Ur Leukocyte Esterase Negative 12/11/16 12:08 RBC 4.00 MCV 99.5 H MCHC 33.6 RDW 14.8 D MPV 8.3 Neutrophils % 54.6 D Lymphocytes % 32.4 D Monocytes % 7.8 Eosinophils % 4.3 Basophils % 0.9 <Tyler Hodges - Last Filed: 12/11/16 15:32> Medical Decision Making - Medical Decision Making 12/11/16 14:23 A portion of this note was documented by scribe services under my direction. I have reviewed the details of the note, within reason, and agree with the documentation with the following case summary and management plan written by me. Patient treated in the ED. Nursing notes are reviewed and incorporated into the medical decision-making. Vital signs reviewed. Peripheral IV access obtained by the nurse, laboratory studies are drawn and sent, reviewed and interpreted by myself. Vital Signs Temp Pulse Resp BP Pulse Ox 97.8 F 69 16 194/82 97 12/11/16 11:32 12/11/16 12:45 12/11/16 12:45 12/11/16 12:45 12/11/16 12:45 86-year-old female with past medical history of hypertension, left-sided breast cancer status post lumpectomy now in remission, gout, coronary disease status post stents, hyperlipidemia, hypothyroidism presents with a symptomatically hypertension. The patient had missed her dose of her hypertension medications which is 50 mg of metoprolol extended release and 60 mg of nifedipine extended release. She had taken her dose this morning but when visiting nursing services went to check on the patient, they noted that her blood pressures were 190/110. Patient denied chest pain or shortness of breath. Denies lightheadedness. Patient had called the PMD who advised patient come to the ER. Workup here demonstrates stable findings though with 2+ protein in urine. EKG demonstrates no concerning findings. I discussed these findings with Dr. Arnaldo Torres. We'll trial some amlodipine here and his blood pressure is improving, and discharge with increasing the nifedipine dose to 90 mg daily and have her follow-up in 2-3 days. 12/11/16 15:25 CBC, BMP 12/11/16 12:08 12/11/16 12:08 CMP Sodium 142 mmol/L (136-145) 12/11/16 12:08 Potassium 3.9 mmol/L (3.5-5.1) 12/11/16 12:08 Chloride 107 mmol/L (98-107) D 12/11/16 12:08 Carbon Dioxide 26 mmol/L (21-32) 12/11/16 12:08 Anion Gap 9 (8-16) 12/11/16 12:08 BUN 24 mg/dL (7-18) H D 12/11/16 12:08 Creatinine 1.3 mg/dL (0.55-1.02) H 12/11/16 12:08 Creat Clearance w eGFR 38.84 (>60) 12/11/16 12:08 Random Glucose 87 mg/dL (74-106) 12/11/16 12:08 Calcium 9.0 mg/dL (8.5-10.1) 12/11/16 12:08 Total Bilirubin 0.8 mg/dL (0.2-1.0) 12/11/16 12:08 AST 26 U/L (15-37) 12/11/16 12:08 ALT 16 U/L (12-78) 12/11/16 12:08 Alkaline Phosphatase 85 U/L (45-117) 12/11/16 12:08 Creatine Kinase 81 IU/L (26-192) 12/11/16 12:08 Troponin I < 0.02 ng/ml (0.00-0.05) 12/11/16 12:08 Total Protein 7.5 g/dl (6.4-8.2) 12/11/16 12:08 Albumin 3.4 g/dl (3.4-5.0) 12/11/16 12:08 Urine Test Results Urine Color Straw 12/11/16 12:08 Urine Appearance Clear 12/11/16 12:08 Urine pH 6.0 (5.0-8.0) 12/11/16 12:08 Urine Protein 2+ (NEGATIVE) H 12/11/16 12:08 Urine Glucose (UA) Negative (NEGATIVE) 12/11/16 12:08 Urine Ketones Negative (NEGATIVE) 12/11/16 12:08 Urine Blood 1+ (NEGATIVE) H 12/11/16 12:08 Urine Nitrite Negative (NEGATIVE) 12/11/16 12:08 Urine Bilirubin Negative (NEGATIVE) 12/11/16 12:08 Ur Leukocyte Esterase Negative (NEGATIVE) 12/11/16 12:08 Labs reviewed. The patient down trended to systolics 190s with diastolic over 80s. Patient reports feeling well. We'll write a prescription for the nifedipine. We'll have patient follow up with her primary care physician. Patient feels well like to go home. I discussed the physical exam findings, ancillary test results and final diagnoses with the patient. I answered all of the patient's questions. The patient was satisfied with the care received and felt comfortable with the discharge plan and treatment plan. The patient will call their primary care physician within 24 hours to arrange follow-up and will return to the Emergency Department with any new, persistant or worsening symptoms. <Tyler Hodges - Last Filed: 12/11/16 15:32> *DC/Admit/Observation/Transfer - Attestations Scribe Attestion: 12/11/16 14:38 Documentation prepared by Loni Fields, acting as medical records director for Tyler Hodges MD. <Loni Fields - Last Filed: 12/11/16 14:55> <Tyler Hodges - Last Filed: 12/11/16 15:32> Diagnosis at time of Disposition: HTN (hypertension) Qualifiers: Hypertension type: unspecified Qualified Code(s): I10 - Essential (primary) hypertension - Discharge Dispostion Disposition: HOME Condition at time of disposition: Good - Prescriptions Prescriptions: Nifedipine ER [Procardia XL -] 90 mg PO DAILY #30 tab.er.24 - Referrals Referrals: Arnaldo Torres MD [Primary Care Provider] - - Patient Instructions Printed Discharge Instructions: DI for High Blood Pressure Additional Instructions: Please take your new dose of nifedpine. It is now 90 mg daily. Please make an appointment and follow up with DR. Torres on or Saturday. I (DR. Tyler Hodges) had spoken with DR. Arnaldo Torres, and Dr. Torres requests the follow up. If you have chest pain or shortness of breath, please return to the ER for further evaluation.
--- NOTE | 2016-12-11 15:34 | EKG ---
Test Reason : Blood Pressure : / mmHG Vent. Rate : 065 BPM Atrial Rate : 065 BPM P-R Int : 150 ms QRS Dur : 080 ms QT Int : 442 ms P-R-T Axes : -04 021 035 degrees QTc Int : 459 ms NORMAL SINUS RHYTHM POSSIBLE INFERIOR INFARCT , AGE UNDETERMINED CANNOT RULE OUT ANTEROSEPTAL INFARCT OF INDETERMINATE AGE (CITED ON OR BEFORE 25-JUN-2016) ABNORMAL ECG WHEN COMPARED WITH ECG OF 25-JUN-2016 11:02, NONSPECIFIC T WAVE ABNORMALITY NO LONGER EVIDENT IN ANTERIOR LEADS CORRELATE CLINICALLY Confirmed by IRVIN APARICIO MD ([id number]) on 12/11/2016 3:34:24 PM Referred By: Confirmed By:IRVIN APARICIO MD
[2016-12-11 16:01] VITALS: TEMP 97.9
[2016-12-11 16:04] VITALS: BP 193/75; PULSE 81
== END 2016-12-11 15:59 | disposition home or self-care (01) ==
LOC: JER 11:11
DX: I10 Essential (primary) hypertension (principal); E78.5 Hyperlipidemia, unspecified; I25.10 Atherosclerotic heart disease of native coronary artery without angina pectoris; Z95.5 Presence of coronary angioplasty implant and graft; Z87.891 Personal history of nicotine dependence; Z85.3 Personal history of malignant neoplasm of breast
CPT/HCPCS: 36415; 80053; 81003; 81015; 82550; 84484; 85025; 87077; 87086; 93005; 93010; 99283-25

== ENCOUNTER 2017-04-11 15:37 | Inpatient (IN) | payer OTHER, BC ==
[2017-04-11] MEDS ORDERED: ASPIRIN 81 MG CHEWABLE TABLETS ONE (15:54)
[2017-04-11] MEDS ORDERED: NITROGLYCERIN SUBLINGUAL 1/150 0.4 MG TAB ONE (15:54)
[2017-04-11] MEDS ORDERED: ASPIRIN 81 MG CHEWABLE TABLETS PO ONE (15:55)
[2017-04-11 16:02] VITALS: BMI 21.9
--- NOTE | 2017-04-11 16:06 | PDOC ---
Attending Attestation - Resident Resident Name: Simon Ochoa - ED Attending Attestation I have performed the following: I have examined & evaluated the patient, The case was reviewed & discussed with the resident, I agree w/resident's findings & plan, Exceptions are as noted - HPI HPI: 04/11/17 16:04 86-year-old female with history of hypertension, coronary disease status post 3 stents presents with shortness of breath and only blood pressure since this morning. Patient woke up in her usual state of health. Stated that she started developing difficulty breathing and some chest tightness. Denies fevers or chills. Does not refer last stress test or echo. Patient's primary care physician is Dr. Arnaldo Torres and infrastructure developer is Dr. Benjamin Corey. - Physicial Exam PE: 04/11/17 16:05 GENERAL: Awake, alert, and fully oriented, in no acute distress. HEAD: No signs of trauma EYES: PERRLA, EOMI, sclera anicteric, conjunctiva clear ENT: Auricles normal inspection, hearing grossly normal, nares patent, oropharynx clear without exudates. NECK: Normal ROM, supple, no lymphadenopathy, JVD, or masses LUNGS: Bibasilar rales. HEART: Regular rate and rhythm, normal S1 and S2, no murmurs, rubs or gallops ABDOMEN: Soft, nontender, normoactive bowel sounds. No guarding, no rebound. No masses EXTREMITIES: Normal range of motion, no edema. No clubbing or cyanosis. No cords, erythema, or tenderness NEUROLOGICAL: Cranial nerves II through XII grossly intact. Normal speech, normal gait SKIN: Warm, Dry, normal turgor, no rashes or lesions noted. - Medical Decision Making 04/11/17 16:05 Vital Signs Temp Pulse Resp BP Pulse Ox 97.4 F L 93 H 28 H 205/88 93 L 04/11/17 15:57 04/11/17 15:57 04/11/17 15:57 04/11/17 15:57 04/11/17 15:57 86 year old F c/ chest pain and SOB. +bibasilar rales and elevated BP concerning for CHF. Will also need to EDUIN. Chest xray, labs, troponin, BNP. Aspirin, nitro. Depending on chest xray, BNP, consider IV lasix Admit. Heart Score/ECG Review #1 ECG reviewed & interpreted by me at: 15:45 04/11/17 16:06 NSR 92, no std/earl, TWI III, normal axis, normal intervals, QTC 469 msec
--- NOTE | 2017-04-11 16:08 | PDOC ---
History of Present Illness - General Stated Complaint: CHEST PAIN Time Seen by Provider: 04/11/17 15:41 - History of Present Illness Initial Comments: 04/11/17 15:57 86 yo F with h/o HTN, COPD, Dementia, and Stent Placement x 3 who arrives EMS with chest pain. Pt. son at bedside to assist in report. 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 Pt. reports R sided and L sided upper chest pain/tightness. States that it feels as though something is on her chest. Son states she has been endorsing chest pain for last 2 days, but believes it be MSK in nature due to muscle strain while attempting to get into truck 2 days ago. Also experienced SOB at rest 2 hour prior to arrival. Does not endorse fevers/chills, N/V, cough, increased swelling , lightheadedness, weakness, LOC, urinary, or GI complaints. Took one [id number] mg x 1, and ASA 81 mg x 1 this AM. Dock Boss Judson Corey. PCP Dr. Arnaldo Torres. Son Cell number [employer] [phone] Past History - Past Medical History Allergies/Adverse Reactions: Allergies Allergy/AdvReac Type Severity Reaction Status Date / Time Penicillins Allergy Verified 04/11/17 16:59 Home Medications: Ambulatory Orders Aspirin Coated [Ecotrin -] 81 mg PO DAILY tablet.ec 07/04/16 Metoprolol Succinate [Toprol XL -] 50 mg PO DAILY tab.sr.24h 07/04/16 Nifedipine [Nifedipine ER] 60 mg PO DAILY 12/11/16 Methimazole [Tapazole -] 10 mg PO DAILY 04/11/17 Anemia: Yes Cardiac Disorders: Yes HTN: Yes Hypercholesterolemia: Yes Thyroid Disease: Yes (hypothyroidism) - Surgical History Appendectomy: Yes Cardiac Surgery: Yes (stents x 3) - Immunization History Immunization Up to Date: Yes - Suicide/Smoking/Psychosocial Hx Smoking Status: No Smoking History: Former smoker Have you smoked in the past 12 months: No Number of Cigarettes Smoked Daily: 0 Hx Alcohol Use: No Drug/Substance Use Hx: No Substance Use Type: None Hx Substance Use Treatment: No Review of Systems - Review of Systems Comments:: 04/11/17 16:17 GENERAL/CONSTITUTIONAL: No fever or chills. No weakness. HEAD, EYES, EARS, NOSE AND THROAT: No change in vision. No ear pain or discharge. No sore throat.- CARDIOVASCULAR: + chest pain and shortness of breath RESPIRATORY: No cough, wheezing, or hemoptysis. GASTROINTESTINAL: No nausea, vomiting, diarrhea or constipation. GENITOURINARY: No dysuria, frequency, or change in urination. MUSCULOSKELETAL: No joint or muscle swelling or pain. No neck or back pain. SKIN: No rash NEUROLOGIC: No headache, vertigo, loss of consciousness, or change in strength/ sensation. ENDOCRINE: No increased thirst. No abnormal weight change HEMATOLOGIC/LYMPHATIC: No anemia, easy bleeding, or history of blood clots. ALLERGIC/IMMUNOLOGIC: No hives or skin allergy. *Physical Exam - Physical Exam Comments: 04/11/17 16:19 GENERAL: Awake, alert, and fully oriented, in no acute distress HEAD: No signs of trauma, normocephalic, atraumatic EYES: PERRLA, EOMI, sclera anicteric, conjunctiva clear ENT: Hearing grossly normal, nares patent, oropharynx clear without exudates. Moist mucosa NECK: Normal ROM, supple,no JVD, or masses LUNGS: + Bibasilar rales. No distress, speaks full sentences, clear to auscultation bilaterally HEART: Regular rate and rhythm, normal S1 and S2, no murmurs, rubs or gallops, peripheral pulses normal and equal bilaterally. EXTREMITIES : Normal inspection, Normal range of motion, no edema. No clubbing or cyanosis. NEUROLOGICAL: Cranial nerves II through XII grossly intact. Normal speech, normal gait, no focal sensorimotor deficits SKIN: Warm, Dry, normal turgor, no rashes or lesions noted. Heart Score/ECG Review - History History: Slightly suspicious - Electrocardiogram EKG: Non specific repolarization disturbance - Age Age: >/= 65 - Risk Factors Risk Factors Heart Score: Yes Hx Hypercholesterolemia, Yes Hx Hypertension, Yes Positive family hx of cardiac disease Based on the list above the patient has:: >/=3 risk factors or Hx atherosclerotic disease - Troponin Troponin: </= normal limit - Score Heart Score - Total: 5 - ST and T Early Repolarization: No Non Specific ST-T Wave changes: No Flattened T Waves: No Prolonged Q-T Interval: No - ECG Impressions Normal ECG: No Non-specific ST Elevation: No Ischemic Changes: No ED Treatment Course - LABORATORY CBC & Chemistry Diagram: 04/11/17 16:30 04/11/17 16:30 - RADIOLOGY Radiology Studies Ordered: Category Date Time Status CXRPORT [CHEST X-RAY PORTABLE*] [RAD] Stat Radiology 04/11/17 15:55 Ordered Medical Decision Making - Medical Decision Making 04/11/17 16:39 86 yo F with h/o HTN, COPD, Dementia, and Stent Placement x 3 who arrives EMS with chest pain, 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 Hypertensive on arrival with SBP 190's, and 92 % RA, improved to 100% with 2 L O2 NC. Now endorses diffuse chest pressure at rest. Denies fevers/chills, N/V, cough, increased swelling, lightheadedness, weakness, LOC, urinary, or GI complaints. Physical exam reveals HTN, and Bibasilar rales. Took Metoprolol 50 mg x 1, and ASA 81 mg x 1 this AM. Will obtain cardiac workup and BNP for suspected acute exacerbation of CHF in setting of SOB, Rales, and chest pressure. R/o ACS/ID. DDX: acute on chronic CHF, PNA, ACS/ID ED Course: CBC, CMP, BNP, Trop, EKG, CXR, UA Nitro 0.4 mg SL, ASA 325 mg PO 04/11/17 17:42 CBC: Unremarkable EKG: NSR with absent DAVON, STD, or TWI. 04/11/17 17:43 CR: 1.4 (Baseline 1.8) 04/11/17 17:43 BNP: 1868 Trop Neg 04/11/17 17:44 UA: Neg Nitrite, 1 + Blood. Nitroglycerin administered and BP dropped to SBP 70's with MAP of 60. Patient became confused, non verbal. Was given 500 ml of NS. 04/11/17 17:53 Heart Score 4-6 % Risk MACE 04/11/17 18:[address] Torres. Admit pt. to Cardiology/Obs. 04/11/17 18:41 Patient is stable upon reassessment with BP 130/70. Will admit this pt. to Dr. Yoselin Shelby. *DC/Admit/Observation/Transfer Diagnosis at time of Disposition: Acute on chronic heart failure Qualifiers: Heart failure type: unspecified heart failure type Qualified Code(s): I50.9 - Heart failure, unspecified - Discharge Dispostion Admit: Yes - Referrals Referrals: Arnaldo Torres MD [Primary Care Provider] - - Patient Instructions - Post Discharge Activity
[2017-04-11] MEDS ORDERED: SODIUM CHLORIDE 500 ML IV STA (16:19)
[2017-04-11 16:40] LABS: BASOPHIL 0.9 % (0-2.0); MCH 32.3 pg (25.7-33.7); MCHC 32.9 g/dl (32.0-36.0); MEAN PLT VOLUME 8.9 fl (7.5-11.1); NEUTROPHILS 80.9 % (42.8-82.8); PLATELET COUNT 125 K/MM3 (134-434); RDW 14.4 % (11.6-15.6); WHITE BLOOD COUNT 8.4 K/mm3 (4.0-10.0)
[2017-04-11 17:00] LABS: URINE APPEARANCE CLEAR; URINE BILIRUBIN NEGATIVE (NEGATIVE); URINE BLOOD 1+ (NEGATIVE); URINE COLOR LTYELLOW; URINE GLUCOSE (UA) NEGATIVE (NEGATIVE); URINE KETONE NEGATIVE (NEGATIVE); URINE NITRITE NEGATIVE (NEGATIVE); URINE UROBILINOGEN NEGATIVE mg/dL (0.2-1.0)
[2017-04-11 17:02] LABS: URINE PROTEIN 3+ (NEGATIVE)
[2017-04-11 17:05] LABS: URINE HYALINE CAST 3 /lpf; URINE MUCUS RARE; URINE RBC 11 /hpf (0-3); URINE WBC 4 /hpf (3-5)
[2017-04-11 17:12] LABS: INR 1.08 (0.82-1.09); PROTHROMBIN TIME (PATIENT) 12.2 SEC (9.98-11.88)
[2017-04-11 17:36] LABS: ALBUMIN 2.7 g/dl (3.4-5.0); ANION GAP 10 (8-16); BILIRUBIN,TOTAL 0.7 mg/dL (0.2-1.0); CO2 23 mmol/L (21-32); CREATININE 1.4 mg/dL (0.55-1.02); GLUCOSE,RANDOM 95 mg/dL (74-106); SGPT/ALT 13 U/L (12-78); TOT PROT 6.7 g/dl (6.4-8.2)
[2017-04-11 17:38] LABS: ALK PHOS 100 U/L (45-117); CPK 106 IU/L (26-192); TROPONIN I 0.02 ng/ml (0.00-0.05)
[2017-04-11 17:39] LABS: SGOT/AST 26 U/L (15-37)
[2017-04-11 19:39] LABS: ARTERIAL BLD GAS O2 SATURATION 96.3 % (90-98.9); ARTERIAL BLOOD GAS HCO3 22.8 meq/L (22-26); ARTERIAL BLOOD GAS PO2 83.5 mmHg (68-100); ARTERIAL BLOOD GAS pH 7.41 (7.35-7.45)
[2017-04-11 19:40] LABS: ALLENS TEST POSITIVE; ART PUNCT SITE RIGHT RADIAL; LPM/O2% 2; METHEMOGLOBIN 0.7 % (0.4-1.5); PT. ON O2? YES; TYPE OF O2 NASAL
[2017-04-11 22:26] LABS: URINE LEUK ESTERASE Negative (NEGATIVE)
[2017-04-12 00:29] LABS: ALBUMIN 2.6 g/dl (3.4-5.0); ANION GAP 8 (8-16); BILIRUBIN,TOTAL 0.8 mg/dL (0.2-1.0); CALCIUM 7.8 mg/dL (8.5-10.1); CO2 24 mmol/L (21-32); CREATININE 1.3 mg/dL (0.55-1.02); GLUCOSE,RANDOM 92 mg/dL (74-106); SGOT/AST 20 U/L (15-37); SGPT/ALT 12 U/L (12-78); TOT PROT 6.4 g/dl (6.4-8.2)
[2017-04-12 00:30] LABS: ALK PHOS 90 U/L (45-117)
[2017-04-12 07:00] LABS: BASOPHIL 0.2 % (0-2.0); EOSINOPHIL 0.2 % (0-4.5); MCH 32.3 pg (25.7-33.7); MCHC 33.4 g/dl (32.0-36.0); MEAN CELL VOLUME 96.8 fl (80-96); MEAN PLT VOLUME 8.9 fl (7.5-11.1); NEUTROPHILS 80.4 % (42.8-82.8); PLATELET COUNT 105 K/MM3 (134-434); RDW 14.3 % (11.6-15.6); WHITE BLOOD COUNT 8.5 K/mm3 (4.0-10.0)
[2017-04-12 07:17] LABS: MAGNESIUM 1.9 mg/dL (1.8-2.4)
[2017-04-12 07:20] LABS: TROPONIN I 0.02 ng/ml (0.00-0.05)
--- NOTE | 2017-04-12 09:29 | EKG ---
Test Reason : Blood Pressure : / mmHG Vent. Rate : 092 BPM Atrial Rate : 092 BPM P-R Int : 164 ms QRS Dur : 080 ms QT Int : 380 ms P-R-T Axes : 059 067 040 degrees QTc Int : 469 ms POOR DATA QUALITY, INTERPRETATION MAY BE ADVERSELY AFFECTED SINUS RHYTHM WITH PREMATURE VENTRICULAR COMPLEXES OR FUSION COMPLEXES CANNOT RULE OUT ANTERIOR INFARCT (CITED ON OR BEFORE 25-JUN-2016) ABNORMAL ECG Confirmed by NATALIE MEHTA MD ([id number]) on 04/12/2017 9:29:06 AM Referred By: Confirmed By:NATALIE MEHTA MD
[2017-04-12] MEDS: NIFEdipine E.R 60 MG TABLET (UD) PO SCH (09:40)
[2017-04-12] MEDS: METOPROLOL SUCCINATE 50 MG TAB.SR.24H (FP) PO SCH (09:40)
[2017-04-12] MEDS: ASPIRIN COATED 81 MG TABLET.EC PO SCH (09:41)
[2017-04-12] MEDS: METHIMAZOLE 10 MG TABLET (FP) PO SCH (09:41)
[2017-04-12 11:33] LABS: URINE APPEARANCE SLCLOUDY; URINE BILIRUBIN NEGATIVE (NEGATIVE); URINE BLOOD 1+ (NEGATIVE); URINE COLOR YELLOW; URINE GLUCOSE (UA) NEGATIVE (NEGATIVE); URINE KETONE NEGATIVE (NEGATIVE); URINE NITRITE NEGATIVE (NEGATIVE); URINE UROBILINOGEN NEGATIVE mg/dL (0.2-1.0)
[2017-04-12 12:04] LABS: URINE PROTEIN 3+ (NEGATIVE)
--- NOTE | 2017-04-12 12:09 | CON.CARD ---
Cardiology Consult (text) - Consultation Consultation Note: cc: sob, cp hpi: 86 f hx htn, hld, hypothyroid, ckd, cad s/p 4 pci's (last was > 5 yrs ago) , here with sob, cp. Past 2 days with some mild sob. Also yesterday had some atypical cp. No palps, dizzy, loc, pnd, orthopnea, le edema. Sees dr murray for cardio. pmh: per hpi psh: non contrib social: no tobacco, etoh or illicits. ros: per hpi. additionally no f/c/s, n/v/d, h/a, cough, congestion, rashes, muscle pain, kebede, vision changes fam: non contrib meds: Current Medications Generic Name Dose Route Start Last Admin Trade Name Franklin PRN Reason Stop Dose Admin Aspirin 81 mg 04/12/17 10:00 04/12/17 09:41 Ecotrin - PO 81 mg DAILY TYLER Administration Furosemide 40 mg 04/12/17 12:45 Lasix Injection - IVPUSH 04/12/17 12:46 ONCE ONE Methimazole 10 mg 04/12/17 10:00 04/12/17 09:41 Tapazole - PO 10 mg DAILY TYLER Administration Metoprolol Succinate 50 mg 04/12/17 10:00 04/12/17 09:40 Toprol Xl - PO 50 mg DAILY TYLER Administration Nifedipine 60 mg 04/12/17 10:00 04/12/17 09:40 Procardia Xl - PO 60 mg DAILY TYLER Administration Home Medications Medication Instructions Recorded Aspirin Coated [Ecotrin -] 81 mg PO DAILY tablet.ec 07/04/16 Metoprolol Succinate [Toprol XL -] 50 mg PO DAILY tab.sr.24h 07/04/16 Nifedipine [Nifedipine ER] 60 mg PO DAILY 12/11/16 Methimazole [Tapazole -] 10 mg PO DAILY 04/11/17 Vital Signs Period Temp Pulse Resp BP Sys/[place] Pulse Ox Last 24 Hr 97.2 F-98.2 F 78-93 18-28 130-205/72-99 93-100 nad, calm no jvd rrr s1 s2 2/6 murmur at usb bibasilar crackles, nl eff awake alert appropriate no le e/c/c abd nt nd pos bs pos dp/pt, no carotid bruits no diaphoresis/jaundice Laboratory Last Values WBC 8.5 K/mm3 (4.0-10.0) 04/12/17 05:00 RBC 3.52 M/mm3 (3.60-5.2) L 04/12/17 05:00 Hgb 11.4 GM/dL (10.7-15.3) 04/12/17 05:00 Hct 34.1 % (32.4-45.2) 04/12/17 05:00 MCV 96.8 fl (80-96) H 04/12/17 05:00 MCH 32.3 pg (25.7-33.7) 04/12/17 05:00 MCHC 33.4 g/dl (32.0-36.0) 04/12/17 05:00 RDW 14.3 % (11.6-15.6) 04/12/17 05:00 Plt Count 105 K/MM3 (134-434) L 04/12/17 05:00 MPV 8.9 fl (7.5-11.1) 04/12/17 05:00 Neutrophils % 80.4 % (42.8-82.8) 04/12/17 05:00 Lymphocytes % 12.8 % (8-40) 04/12/17 05:00 Monocytes % 6.4 % (3.8-10.2) D 04/12/17 05:00 Eosinophils % 0.2 % (0-4.5) 04/12/17 05:00 Basophils % 0.2 % (0-2.0) 04/12/17 05:00 PT with INR 12.20 SEC (9.98-11.88) H 04/11/17 16:30 INR 1.08 (0.82-1.09) 04/11/17 16:30 Puncture Site Right radial 04/11/17 19:33 ABG pH 7.41 (7.35-7.45) 04/11/17 19:33 ABG pCO2 at Pt Temp 36.5 mmHg (35-45) 04/11/17 19:33 ABG pO2 at Pt Temp 83.5 mmHg (68-100) 04/11/17 19:33 ABG HCO3 22.8 meq/L (22-26) 04/11/17 19:33 ABG O2 Sat (Measured) 96.3 % (90-98.9) 04/11/17 19:33 ABG O2 Content 16.5 % vol (15-22) 04/11/17 19:33 ABG Base Excess -1.0 meq/l (-2-2) 04/11/17 19:33 [place] Test Positive 04/11/17 19:33 Carboxyhemoglobin 0.9 gm% (0.5-2.0) 04/11/17 19:33 Methemoglobin 0.7 % (0.4-1.5) 04/11/17 19:33 O2 Delivery Device Nasal 04/11/17 19:33 Oxygen Flow Rate 2 04/11/17 19:33 Sodium 141 mmol/L (136-145) 04/11/17 23:36 Potassium 3.8 mmol/L (3.5-5.1) 04/11/17 23:36 Chloride 109 mmol/L (98-107) H 04/11/17 23:36 Carbon Dioxide 24 mmol/L (21-32) 04/11/17 23:36 Anion Gap 8 (8-16) 04/11/17 23:36 BUN 23 mg/dL (7-18) H 04/11/17 23:36 Creatinine 1.3 mg/dL (0.55-1.02) H 04/11/17 23:36 Creat Clearance w eGFR 38.84 (>60) 04/11/17 23:36 Random Glucose 92 mg/dL (74-106) 04/11/17 23:36 Hemoglobin A1c % 5.5 % (4.8-6.0) 04/12/17 05:00 Calcium 7.8 mg/dL (8.5-10.1) L 04/11/17 23:36 Phosphorus 3.0 mg/dL (2.5-4.9) 04/12/17 05:00 Magnesium 1.9 mg/dL (1.8-2.4) D 04/12/17 05:00 Total Bilirubin 0.8 mg/dL (0.2-1.0) 04/11/17 23:36 AST 20 U/L (15-37) D 04/11/17 23:36 ALT 12 U/L (12-78) 04/11/17 23:36 Alkaline Phosphatase 90 U/L (45-117) 04/11/17 23:36 Creatine Kinase 106 IU/L (26-192) 04/11/17 16:30 Troponin I 0.02 ng/ml (0.00-0.05) 04/12/17 05:00 B-Natriuretic Peptide 1868.84 pg/ml (5-450) H 04/11/17 16:30 Total Protein 6.4 g/dl (6.4-8.2) 04/11/17 23:36 Albumin 2.6 g/dl (3.4-5.0) L 04/11/17 23:36 Triglycerides 100 mg/dL (35-160) 04/12/17 05:00 Cholesterol 310 mg/dL (50-200) H 04/12/17 05:00 Total LDL Cholesterol 197 mg/dL (5-100) H 04/12/17 05:00 HDL Cholesterol 85 mg/dL (40-60) H 04/12/17 05:00 Urine Color Yellow 04/12/17 09:45 Urine Appearance Slcloudy 04/12/17 09:45 Urine pH 5.0 (5.0-8.0) 04/12/17 09:45 Ur Specific [place] 1.017 (1.001-1.035) 04/12/17 09:45 Urine Protein 3+ (NEGATIVE) H 04/12/17 09:45 Urine Glucose (UA) Negative (NEGATIVE) 04/12/17 09:45 Urine Ketones Negative (NEGATIVE) 04/12/17 09:45 Urine Blood 1+ (NEGATIVE) H 04/12/17 09:45 Urine Nitrite Negative (NEGATIVE) 04/12/17 09:45 Urine Bilirubin Negative (NEGATIVE) 04/12/17 09:45 Urine Urobilinogen Negative mg/dL (0.2-1.0) 04/12/17 09:45 Ur Leukocyte Esterase Negative (NEGATIVE) 04/11/17 04:45 Ur Epithelial Cells Rare /HPF (FEW) 04/11/17 04:45 Hyaline Casts 3 /lpf 04/11/17 04:45 Urine Mucus Rare 04/11/17 04:45 tele: sr ecg 04/11/17: sr, nl intervals, no ischemic changes cxr: chf a/p: 86 f hx htn, hld, hypothyroid, ckd, cad s/p 4 pci's (last was > 5 yrs ago) , here with sob, cp. cp, sob, acute diastolic chf: -no signs acs, ce's negx3, ecg w/o ischemic changes -pt with congestion on cxr and crackles on exam -will give test dose of iv lasix 40 today and see if helps with sxs -monitor tomorrow to see if needs continued iv lasix -check echo cad s/p remote pci: - No suspected acs here, no angina. - con't crestor. anti-anginals, asa, bb htn: -cont home meds CKD: - renal fxn currently stable vs prior range in computer, monitor with lasix
[2017-04-12] MEDS ORDERED: FUROSEMIDE 40 MG/4 ML INJECTABLE VIAL IVPUSH ONE (12:45)
[2017-04-12 12:54] LABS: URINE HYALINE CAST 8 /lpf; URINE MUCUS RARE; URINE RBC 12 /hpf (0-3); URINE WBC 5 /hpf (3-5)
--- NOTE | 2017-04-12 13:05 | HP ---
Admitting History and Physical - Primary Care Physician PCP: Arnaldo Torres - Admission Chief Complaint: SOB History of Present Illness: pt aith known Hx/o CAD, PCI and stents, came to ER c/o SOB for 2 days, getting progressively worse. Pt w/o CP, palp, dizziness. Pt states that is compliant with meds, diet. History Source: Patient Limitations to Obtaining History: No Limitations - Past Medical History Cardiovascular: Yes: CAD (s/p PCI w stents), HTN, Hyperlipdemia Endocrine: Yes: Hypothyroidism - Smoking History Smoking history: Former smoker Have you smoked in the past 12 months: No Aproximately how many cigarettes per day: 0 - Alcohol/Substance Use Hx Alcohol Use: No Home Medications - Allergies Allergies/Adverse Reactions: Allergies Allergy/AdvReac Type Severity Reaction Status Date / Time Penicillins Allergy Verified 04/11/17 16:59 - Home Medications Home Medications: Ambulatory Orders Aspirin Coated [Ecotrin -] 81 mg PO DAILY tablet.ec 07/04/16 Metoprolol Succinate [Toprol XL -] 50 mg PO DAILY tab.sr.24h 07/04/16 Nifedipine [Nifedipine ER] 60 mg PO DAILY 12/11/16 Methimazole [Tapazole -] 10 mg PO DAILY 04/11/17 Review of Systems - Review of Systems Constitutional: denies: Chills, Fever Eyes: denies: Blurred Vision, Recent Change in Vision HENT: denies: Ear Discharge, Ear Pain, Nasal Congestion, Throat Pain Neck: denies: Pain on Movement, Stiffness Cardiovascular: denies: Chest Pain, Edema, Palpitations Respiratory: reports: Cough, SOB. denies: Wheezing Gastrointestinal: denies: Abdominal Pain, Diarrhea, Nausea, Vomiting Genitourinary: denies: Burning, Discharge Musculoskeletal: denies: Extremity Pain, Joint Swelling Integumentary: denies: Blister, Rash Neurological: denies: Change in LOC, Change in Speech, Confusion Endocrine: denies: Excessive Sweating, Intolerance to Cold Physical Examination Vital Signs: Vital Signs Temperature 98.2 F 04/12/17 10:00 Pulse Rate 86 04/12/17 10:00 Respiratory Rate 20 04/12/17 10:00 Blood Pressure 138/74 04/12/17 10:00 O2 Sat by Pulse Oximetry (%) 97 04/12/17 09:00 Constitutional: Yes: No Distress, Calm Eyes: Yes: Conjunctiva Clear, EOM Intact HENT: Yes: Normocephalic. No: Epistaxis, Pharyngeal Erythema, Rhinnorhea Neck: Yes: Trachea Midline. No: Lymphadenopathy Cardiovascular: Yes: Regular Rate and Rhythm, Murmur, S1, S2 Respiratory: Yes: Regular, Rales (crackles at bases) Gastrointestinal: Yes: Normal Bowel Sounds, Soft. No: Tenderness Edema: LLE: Trace, RLE: Trace Neurological: Yes: Alert, Oriented (symmetric motor and sensory examination in UE/ LE/ face) Psychiatric: Yes: Alert, Oriented Labs: CBC, BMP 04/12/17 05:00 04/11/17 23:36 Imaging - Results Chest X-ray: Report Reviewed Problem List - Problems (1) Acute on chronic heart failure Code(s): I50.9 - HEART FAILURE, UNSPECIFIED Qualifiers: Heart failure type: unspecified heart failure type Qualified Code(s): I50.9 - Heart failure, unspecified (2) CAD S/P percutaneous coronary angioplasty Code(s): I25.10 - ATHSCL HEART DISEASE OF [place] CORONARY ARTERY W/O ANG PCTRS; Z98.61 - CORONARY ANGIOPLASTY STATUS (3) HTN (hypertension) Code(s): I10 - ESSENTIAL (PRIMARY) HYPERTENSION Qualifiers: Hypertension type: unspecified Qualified Code(s): I10 - Essential (primary ) hypertension (4) Chronic renal disease Code(s): N18.9 - CHRONIC KIDNEY DISEASE, UNSPECIFIED (5) Hyperlipidemia Code(s): E78.5 - HYPERLIPIDEMIA, UNSPECIFIED Assessment/Plan IV Lasix, to monitor renal function Cardio consult; case was d/e Dr. Brooks Admit to Monitor bed. ECHO OOBTC AM labs
[2017-04-12 19:57] LABS: URINE LEUK ESTERASE Negative (NEGATIVE)
[2017-04-12] MEDS: ACETAMINOPHEN 325 MG TABLET (FP) PO PRN (20:29)
[2017-04-13] MEDS: ACETAMINOPHEN 325 MG TABLET (FP) PO PRN (05:26)
[2017-04-13 07:45] LABS: MCH 32.6 pg (25.7-33.7); MCHC 33.7 g/dl (32.0-36.0); MEAN CELL VOLUME 96.9 fl (80-96); PLATELET COUNT 114 K/MM3 (134-434); RDW 14.6 % (11.6-15.6); WHITE BLOOD COUNT 7.7 K/mm3 (4.0-10.0)
[2017-04-13 08:38] LABS: ALBUMIN 2.4 g/dl (3.4-5.0); ALK PHOS 90 U/L (45-117); ANION GAP 10 (8-16); BILIRUBIN,TOTAL 1.5 mg/dL (0.2-1.0); CALCIUM 7.9 mg/dL (8.5-10.1); CO2 23 mmol/L (21-32); CREATININE 1.9 mg/dL (0.55-1.02); GLUCOSE,RANDOM 84 mg/dL (74-106); SGOT/AST 20 U/L (15-37); SGPT/ALT 12 U/L (12-78); TOT PROT 6.3 g/dl (6.4-8.2)
--- NOTE | 2017-04-13 09:09 | PN ---
Progress Note, Physician Chief Complaint: sob History of Present Illness: no sob (in bed only) no cp no leg swelling no palpitations ex cigs - Current Medication List Current Medications: Active Medications Acetaminophen (Tylenol -) 650 mg PO Q6H PRN PRN Reason: FEVER OR PAIN Last Admin: 04/13/17 05:26 Dose: 650 mg Aspirin (Ecotrin -) 81 mg PO DAILY [facility] Last Admin: 04/12/17 09:41 Dose: 81 mg Methimazole (Tapazole -) 10 mg PO DAILY [facility] Last Admin: 04/12/17 09:41 Dose: 10 mg Metoprolol Succinate (Toprol Xl -) 50 mg PO DAILY [facility] Last Admin: 04/12/17 09:40 Dose: 50 mg Nifedipine (Procardia Xl -) 60 mg PO DAILY [facility] Last Admin: 04/12/17 09:40 Dose: 60 mg - Objective Vital Signs: Vital Signs Temperature 98.7 F 04/13/17 05:25 Pulse Rate 71 04/13/17 05:25 Respiratory Rate 20 04/13/17 05:25 Blood Pressure 128/69 04/13/17 05:25 O2 Sat by Pulse Oximetry (%) 96 04/12/17 20:22 Labs: CBC, BMP 04/13/17 05:25 INR, PTT INR 1.08 (0.82-1.09) 04/11/17 16:30 Assessment/Plan ecg 04/11/17: sr, nl intervals, no ischemic changes cxr 04/11: chf changes (images reviewed: vascular redistribution seen, no pulm edema, ? small L effusion) Echo 04/05 (): nl LVSF mild LVH. nl RV. mod LAE. severe (reported gradients 71, 41 with PEDRO 0.6). mod MR. RVSP 30-40. small peric effusion a/p: 86 f hx htn, hld, hypothyroid, ckd, cad s/p 4 pci's (last was > 5 yrs ago) , here with sob, cp. sob, acute diastolic chf: -cxr with probable L effusion, incr interstitial markings vs 07/06 suspect interstitial edema -no signs acs, ce's negx3, ecg w/o ischemic changes -pt with congestion on cxr and crackles on exam -given test dose of iv lasix 40 04/12 -04/13: wt down 23 lbs overnight--suspect nurses aid error, continue to observe wt trend -no sob but remains in bed (was sob with activity at home) -creat bumped 1.3 to 1.9 today (quite variable creatinines in past here, 1.4-1.8 ) -lung exam abnormal--? ATX vs congestion -rpt CXR today -hold lasix -doubt she remains volume up -suspect sob with activity was more related to than signif volume -ex cigs, denies copd history, no wheezing -dr murray back sunday 04/15--will d/w him then re: ? transfer for TAVR w/u cad s/p remote pci: - No suspected acs here, no angina. - con't home crestor, asa, bb, anti-anginals htn: -bp controlled -cont home meds CKD: - baseline range here in past 1.4-1.8 - currently rising, as above - daily labs
[2017-04-13] MEDS: NIFEdipine E.R 60 MG TABLET (UD) PO SCH (09:21)
[2017-04-13] MEDS: METHIMAZOLE 10 MG TABLET (FP) PO SCH (09:21)
[2017-04-13] MEDS: ASPIRIN COATED 81 MG TABLET.EC PO SCH (09:21)
[2017-04-13] MEDS: METOPROLOL SUCCINATE 50 MG TAB.SR.24H (FP) PO SCH (09:21)
--- NOTE | 2017-04-13 11:52 | PN ---
Progress Note, Physician History of Present Illness: Pt w/o SOB, CP, palp, dizziness, abd pain. Pt reported to last night nurse and today AM nurse than has BP; no she states that has no pain. - Current Medication List Current Medications: Active Medications Acetaminophen (Tylenol -) 650 mg PO Q6H PRN PRN Reason: FEVER OR PAIN Last Admin: 04/13/17 05:26 Dose: 650 mg Aspirin (Ecotrin -) 81 mg PO DAILY [facility] Last Admin: 04/13/17 09:21 Dose: 81 mg Methimazole (Tapazole -) 10 mg PO DAILY [facility] Last Admin: 04/13/17 09:21 Dose: 10 mg Metoprolol Succinate (Toprol Xl -) 50 mg PO DAILY [facility] Last Admin: 04/13/17 09:21 Dose: 50 mg Nifedipine (Procardia Xl -) 60 mg PO DAILY [facility] Last Admin: 04/13/17 09:21 Dose: 60 mg - Objective Vital Signs: Vital Signs Temperature 98 F 04/13/17 09:21 Pulse Rate 77 04/13/17 09:21 Respiratory Rate 20 04/13/17 09:21 Blood Pressure 125/69 04/13/17 09:21 O2 Sat by Pulse Oximetry (%) 98 04/13/17 08:00 Constitutional: Yes: No Distress, Calm Cardiovascular: Yes: Regular Rate and Rhythm, Murmur, S1, S2 Respiratory: Yes: Regular, CTA Bilaterally, Other (crackles at both bases) Gastrointestinal: Yes: Normal Bowel Sounds, Soft. No: Tenderness Edema: No Neurological: Yes: Alert, Oriented Labs: CBC, BMP 04/13/17 05:25 04/13/17 05:25 INR, PTT INR 1.08 (0.82-1.09) 04/11/17 16:30 Problem List - Problems (1) Acute on chronic heart failure Code(s): I50.9 - HEART FAILURE, UNSPECIFIED Qualifiers: Heart failure type: unspecified heart failure type Qualified Code(s): I50.9 - Heart failure, unspecified (2) CAD S/P percutaneous coronary angioplasty Code(s): I25.10 - ATHSCL HEART DISEASE OF [place] CORONARY ARTERY W/O ANG PCTRS; Z98.61 - CORONARY ANGIOPLASTY STATUS (3) HTN (hypertension) Code(s): I10 - ESSENTIAL (PRIMARY) HYPERTENSION Qualifiers: Hypertension type: unspecified Qualified Code(s): I10 - Essential (primary ) hypertension (4) Chronic renal disease Code(s): N18.9 - CHRONIC KIDNEY DISEASE, UNSPECIFIED (5) Hyperlipidemia Code(s): E78.5 - HYPERLIPIDEMIA, UNSPECIFIED (6) Aortic stenosis Code(s): I35.0 - NONRHEUMATIC AORTIC (VALVE) STENOSIS (7) Mitral regurgitation Code(s): I34.0 - NONRHEUMATIC MITRAL (VALVE) INSUFFICIENCY (8) Pericardial effusion Code(s): I31.3 - PERICARDIAL EFFUSION (NONINFLAMMATORY) (9) Acute on chronic renal failure Code(s): N17.9 - ACUTE KIDNEY FAILURE, UNSPECIFIED; N18.9 - CHRONIC KIDNEY DISEASE, UNSPECIFIED (10) Back pain Code(s): M54.9 - DORSALGIA, UNSPECIFIED Assessment/Plan Lasix on hold, to monitor renal function. Cardio consultappreciated Admitted to Monitor bed. ECHO report was reviewed Tylenol PRN OOBTC AM labs
[2017-04-14 07:47] LABS: ANION GAP 10 (8-16); CALCIUM 7.6 mg/dL (8.5-10.1); CO2 24 mmol/L (21-32); GLUCOSE,RANDOM 83 mg/dL (74-106)
[2017-04-14] MEDS: ACETAMINOPHEN 325 MG TABLET (FP) PO PRN (08:44)
[2017-04-14] MEDS: ASPIRIN COATED 81 MG TABLET.EC PO SCH (09:25)
[2017-04-14] MEDS: METOPROLOL SUCCINATE 50 MG TAB.SR.24H (FP) PO SCH (09:25)
[2017-04-14] MEDS: METHIMAZOLE 10 MG TABLET (FP) PO SCH (09:25)
[2017-04-14] MEDS: NIFEdipine E.R 60 MG TABLET (UD) PO SCH (09:25)
--- NOTE | 2017-04-14 10:07 | PN ---
Progress Note, Physician Chief Complaint: sob History of Present Illness: no sob (oob to chair mostly); no cp no leg swelling no palpitations no cigs - Current Medication List Current Medications: Active Medications Acetaminophen (Tylenol -) 650 mg PO Q6H PRN PRN Reason: FEVER OR PAIN Last Admin: 04/14/17 08:44 Dose: 650 mg Aspirin (Ecotrin -) 81 mg PO DAILY [facility] Last Admin: 04/14/17 09:25 Dose: 81 mg Methimazole (Tapazole -) 10 mg PO DAILY [facility] Last Admin: 04/14/17 09:25 Dose: 10 mg Metoprolol Succinate (Toprol Xl -) 50 mg PO DAILY [facility] Last Admin: 04/14/17 09:25 Dose: 50 mg Nifedipine (Procardia Xl -) 60 mg PO DAILY [facility] Last Admin: 04/14/17 09:25 Dose: 60 mg - Objective Vital Signs: Vital Signs Temperature 97.7 F 04/14/17 07:40 Pulse Rate 73 04/14/17 07:40 Respiratory Rate 20 04/14/17 07:40 Blood Pressure 123/69 04/14/17 07:40 O2 Sat by Pulse Oximetry (%) 97 04/13/17 21:00 Constitutional: Yes: No Distress, Calm Eyes: No: Sclera Icterus HENT: No: Nasal Congestion Cardiovascular: Yes: Regular Rate and Rhythm (very decr sounds), Murmur (soft CHAVO rusb (no s2 heard)), S1, S2, Other (PMI non diplaced). No: Gallop Respiratory: Yes: Regular, Diminished (diffusely), Rales (bases). No: Accessory Muscle Use Gastrointestinal: Yes: Normal Bowel Sounds, Soft. No: Tenderness Musculoskeletal: Yes: Other (No kyphosis) Extremities: No: Cold Edema: No Integumentary: No: Jaundice Neurological: Yes: Alert, Oriented (x3) Psychiatric: No: Agitated Labs: CBC, BMP 04/13/17 05:25 04/14/17 05:42 INR, PTT INR 1.08 (0.82-1.09) 04/11/17 16:30 - ....Imaging EKG: Other (tele: NSR) Assessment/Plan ecg 04/11/17: sr, nl intervals, no ischemic changes cxr 04/11: chf changes (images reviewed: vascular redistribution seen, no pulm edema, ? small L effusion) Echo 04/05 (): nl LVSF mild LVH. nl RV. mod LAE. severe (reported gradients 71, 41 with PEDRO 0.6). mod MR. RVSP 30-40. small peric effusion a/p: 86 f hx htn, hld, hypothyroid, ckd, cad s/p 4 pci's (last was > 5 yrs ago) , here with sob, cp. sob, acute diastolic chf: -cxr with probable L effusion, incr interstitial markings vs 07/06 suspect interstitial edema -no signs acs, ce's negx3, ecg w/o ischemic changes -pt with congestion on cxr and crackles on exam -given test dose of iv lasix 40 04/12 -04/13: wt down 23 lbs overnight--suspect nurses aid error, continue to observe wt trend -no sob but remains in bed (was sob with activity at home) -creat bumped 1.3 to 1.9 today (quite variable creatinines in past here, 1.4-1.8 ) -lung exam abnormal--? ATX vs congestion -rpt CXR ordered yesterday--not done -doubt she remains volume up -04/14: wts very labile likely error involved here--today 105 (from 119 two days ago). creat up further 2.0 (bun too) -suspect sob with activity was related to or COPD, without signif volume on board -ex cigs, denies copd history, no wheezing--lung exam c/w copd -no further diuresis. gentle IVF today, would like to see creat trending down prior to discharge (though pt adamant she wants to go today, agrees to wait until tomorrow0 -echo images reviewed by me, critical likely: valve clearly is thickened with very reduced leaflet excursion. peak and mean gradients around 70 and 40. LVOT 1.7 cm on my measurement--PEDRO around 0.5. -dr murray back sunday 04/15--will d/w him whether he would like to d/w pt TAVR w/u (ok to do as outpt if she remains asymptomatic with ambulation tomorrow) cad s/p remote pci: - No suspected acs here, no angina. - con't home crestor, asa, bb, anti-anginals htn: -bp controlled -cont home meds CKD: - baseline range here in past 1.4-1.8 - currently rising, as above - daily labs
--- NOTE | 2017-04-14 12:03 | PN ---
Progress Note, Physician History of Present Illness: Pt w/o SOB, CP, palp, dizziness, abd pain. Pt states that has no back pain; her nurse is at bedside and reports significant pain when pt was moved to the chair, although hes was pre-medicated with Tylenol. - Current Medication List Current Medications: Active Medications Acetaminophen (Tylenol -) 650 mg PO Q6H PRN PRN Reason: FEVER OR PAIN Last Admin: 04/14/17 08:44 Dose: 650 mg Aspirin (Ecotrin -) 81 mg PO DAILY [facility] Last Admin: 04/14/17 09:25 Dose: 81 mg Methimazole (Tapazole -) 10 mg PO DAILY [facility] Last Admin: 04/14/17 09:25 Dose: 10 mg Metoprolol Succinate (Toprol Xl -) 50 mg PO DAILY [facility] Last Admin: 04/14/17 09:25 Dose: 50 mg Nifedipine (Procardia Xl -) 60 mg PO DAILY [facility] Last Admin: 04/14/17 09:25 Dose: 60 mg - Objective Vital Signs: Vital Signs Temperature 97.7 F 04/14/17 07:40 Pulse Rate 73 04/14/17 07:40 Respiratory Rate 20 04/14/17 08:00 Blood Pressure 123/69 04/14/17 07:40 O2 Sat by Pulse Oximetry (%) 97 04/14/17 08:00 Constitutional: Yes: No Distress, Calm Cardiovascular: Yes: Regular Rate and Rhythm, Murmur, S1, S2 Respiratory: Yes: Regular, CTA Bilaterally (except at bases ( scattered crackles )) Gastrointestinal: Yes: Normal Bowel Sounds, Soft. No: Tenderness Edema: No Neurological: Yes: Alert, Oriented Labs: CBC, BMP 04/13/17 05:25 04/14/17 05:42 INR, PTT INR 1.08 (0.82-1.09) 04/11/17 16:30 Problem List - Problems (1) Acute on chronic heart failure Code(s): I50.9 - HEART FAILURE, UNSPECIFIED Qualifiers: Heart failure type: unspecified heart failure type Qualified Code(s): I50.9 - Heart failure, unspecified (2) CAD S/P percutaneous coronary angioplasty Code(s): I25.10 - ATHSCL HEART DISEASE OF [place] CORONARY ARTERY W/O ANG PCTRS; Z98.61 - CORONARY ANGIOPLASTY STATUS (3) HTN (hypertension) Code(s): I10 - ESSENTIAL (PRIMARY) HYPERTENSION Qualifiers: Hypertension type: unspecified Qualified Code(s): I10 - Essential (primary ) hypertension (4) Chronic renal disease Code(s): N18.9 - CHRONIC KIDNEY DISEASE, UNSPECIFIED (5) Hyperlipidemia Code(s): E78.5 - HYPERLIPIDEMIA, UNSPECIFIED (6) Aortic stenosis Code(s): I35.0 - NONRHEUMATIC AORTIC (VALVE) STENOSIS (7) Mitral regurgitation Code(s): I34.0 - NONRHEUMATIC MITRAL (VALVE) INSUFFICIENCY (8) Pericardial effusion Code(s): I31.3 - PERICARDIAL EFFUSION (NONINFLAMMATORY) (9) Acute on chronic renal failure Code(s): N17.9 - ACUTE KIDNEY FAILURE, UNSPECIFIED; N18.9 - CHRONIC KIDNEY DISEASE, UNSPECIFIED (10) Back pain Code(s): M54.9 - DORSALGIA, UNSPECIFIED Assessment/Plan Lasix on hold, to monitor renal function. Cardio consult appreciated; Admitted to Monitor bed. ECHO report was reviewed Tylenol PRN OOBTC- trial of Tylenol #3. I encouraged pt ( pt's nurse is aware) to increase PO fluid intake. AM labs
[2017-04-14] MEDS: ACETAMINOPHEN WITH CODEINE 300MG/30MG TABLET PO PRN (23:00)
[2017-04-15 07:23] LABS: ANION GAP 9 (8-16); CALCIUM 7.7 mg/dL (8.5-10.1); CO2 27 mmol/L (21-32); GLUCOSE,RANDOM 79 mg/dL (74-106)
[2017-04-15 07:24] LABS: CREATININE 2.3 mg/dL (0.55-1.02)
[2017-04-15] MEDS: NIFEdipine E.R 60 MG TABLET (UD) PO SCH (09:15)
[2017-04-15] MEDS: METHIMAZOLE 10 MG TABLET (FP) PO SCH (09:15)
[2017-04-15] MEDS: METOPROLOL SUCCINATE 50 MG TAB.SR.24H (FP) PO SCH (09:15)
[2017-04-15] MEDS: ASPIRIN COATED 81 MG TABLET.EC PO SCH (09:15)
[2017-04-15] MEDS ORDERED: SODIUM CHLORIDE 500 ML IV ONE (10:15)
--- NOTE | 2017-04-15 10:55 | PN ---
Progress Note, Physician Chief Complaint: sob History of Present Illness: no sob (not leaving the bed) no cp no palpit, leg swelling ex cigs - Current Medication List Current Medications: Active Medications Acetaminophen (Tylenol -) 650 mg PO Q6H PRN PRN Reason: FEVER OR PAIN Last Admin: 04/14/17 08:44 Dose: 650 mg Acetaminophen/Codeine Phosphate (Tylenol # 3 -) 1 tab PO Q4H PRN PRN Reason: PAIN LEVEL 6-10 Last Admin: 04/14/17 23:00 Dose: 1 tab Aspirin (Ecotrin -) 81 mg PO DAILY [facility] Last Admin: 04/15/17 09:15 Dose: 81 mg Sodium Chloride (Normal Saline -) 500 mls @ 50 mls/hr IV ASDIR ONE Stop: 04/15/17 20:14 Last Admin: 04/15/17 10:18 Dose: 50 mls/hr Methimazole (Tapazole -) 10 mg PO DAILY [facility] Last Admin: 04/15/17 09:15 Dose: 10 mg Metoprolol Succinate (Toprol Xl -) 50 mg PO DAILY [facility] Last Admin: 04/15/17 09:15 Dose: 50 mg Nifedipine (Procardia Xl -) 60 mg PO DAILY [facility] Last Admin: 04/15/17 09:15 Dose: 60 mg - Objective Vital Signs: Vital Signs Temperature 98 F 04/15/17 09:00 Pulse Rate 64 04/15/17 09:00 Respiratory Rate 18 04/15/17 09:00 Blood Pressure 112/58 04/15/17 09:00 O2 Sat by Pulse Oximetry (%) 96 04/14/17 20:36 Constitutional: Yes: No Distress, Calm Eyes: No: Sclera Icterus HENT: No: Nasal Congestion Cardiovascular: Yes: Regular Rate and Rhythm (soft sounds), Murmur (soft CHAVO rusb, no change (no S2 heard)), S1, S2, Other (PMI non diplaced). No: JVD, Gallop Respiratory: Yes: CTA Bilaterally, Rales (bases). No: Accessory Muscle Use, Wheezes Gastrointestinal: Yes: Normal Bowel Sounds, Soft. No: Tenderness Musculoskeletal: Yes: Other (No kyphosis) Extremities: No: Cold Edema: No Integumentary: No: Jaundice Neurological: Yes: Alert, Oriented (x3) Psychiatric: No: Agitated Labs: CBC, BMP 11/25/17 05:25 04/15/17 06:35 INR, PTT INR 1.08 (0.82-1.09) 04/11/17 16:30 - ....Imaging EKG: Other (tele: NSR) Assessment/Plan ecg 04/11/17: sr, nl intervals, no ischemic changes cxr 04/11: chf changes (images reviewed: vascular redistribution seen, no pulm edema, ? small L effusion) Echo 04/05 (): nl LVSF mild LVH. nl RV. mod LAE. severe (reported gradients 71, 41 with PEDRO 0.6). mod MR. RVSP 30-40. small peric effusion a/p: 86 f hx htn, hld, hypothyroid, ckd, cad s/p 4 pci's (last was > 5 yrs ago) , here with sob, cp. sob, acute diastolic chf: -cxr with probable L effusion, incr interstitial markings vs 07/06 suspect interstitial edema -no signs acs, ce's negx3, ecg w/o ischemic changes -pt with congestion on cxr and crackles on exam -given test dose of iv lasix 40 04/12 -04/13: wt down 23 lbs overnight--suspect nurses aid error, continue to observe wt trend -no sob but remains in bed (was sob with activity at home) -creat bumped 1.3 to 1.9 today (quite variable creatinines in past here, 1.4-1.8 ) -lung exam abnormal--? ATX vs congestion -rpt CXR ordered yesterday--not done -doubt she remains volume up -04/14: wts very labile likely error involved here--today 105 (from 119 two days ago). creat up further 2.0 (bun too) -suspect sob with activity was related to or COPD, without signif volume on board -ex cigs, denies copd history, no wheezing--lung exam c/w copd -no further diuresis. gentle IVF today, would like to see creat trending down prior to discharge (though pt adamant she wants to go today, agrees to wait until tomorrow -04/15: wt stable. creat up further (2.3), no s/sx of chf--IVF started. -echo images reviewed by me, critical likely: valve clearly is thickened with very reduced leaflet excursion. peak and mean gradients around 70 and 40. LVOT 1.7 cm on my measurement--PEDRO around 0.5. -d/w'd dr murray who agrees with outpt f/u to discuss TAVR--pt advised should f/ u with him within 1 week of hosp discharge cad s/p remote pci: - No suspected acs here, no angina. - con't home crestor, asa, bb, anti-anginals htn: -bp controlled -cont home meds CKD: - baseline range here in past 1.4-1.8 - currently rising, as above - daily labs STABLE FOR DISCHARGE ONCE CREATININE TRENDING DOWN
--- NOTE | 2017-04-15 15:56 | PN ---
Progress Note, Physician History of Present Illness: Pt w/o SOB, CP, palp, dizziness, abd pain. Pt states that has no back pain. - Current Medication List Current Medications: Active Medications Acetaminophen (Tylenol -) 650 mg PO Q6H PRN PRN Reason: FEVER OR PAIN Last Admin: 04/14/17 08:44 Dose: 650 mg Acetaminophen/Codeine Phosphate (Tylenol # 3 -) 1 tab PO Q4H PRN PRN Reason: PAIN LEVEL 6-10 Last Admin: 04/14/17 23:00 Dose: 1 tab Aspirin (Ecotrin -) 81 mg PO DAILY [facility] Last Admin: 04/15/17 09:15 Dose: 81 mg Sodium Chloride (Normal Saline -) 500 mls @ 50 mls/hr IV ASDIR ONE Stop: 04/15/17 20:14 Last Admin: 04/15/17 10:18 Dose: 50 mls/hr Methimazole (Tapazole -) 10 mg PO DAILY [facility] Last Admin: 04/15/17 09:15 Dose: 10 mg Metoprolol Succinate (Toprol Xl -) 50 mg PO DAILY [facility] Last Admin: 04/15/17 09:15 Dose: 50 mg Nifedipine (Procardia Xl -) 60 mg PO DAILY [facility] Last Admin: 04/15/17 09:15 Dose: 60 mg - Objective Vital Signs: Vital Signs Temperature 98.1 F 04/15/17 15:00 Pulse Rate 69 04/15/17 15:00 Respiratory Rate 18 04/15/17 15:00 Blood Pressure 119/58 04/15/17 15:00 O2 Sat by Pulse Oximetry (%) 96 04/15/17 09:00 Constitutional: Yes: No Distress, Calm Cardiovascular: Yes: Regular Rate and Rhythm, S1, S2 Respiratory: Yes: Regular, Rales (atelectasis at bases, improving with deep inspiration) Gastrointestinal: Yes: Normal Bowel Sounds, Soft. No: Tenderness Edema: No Neurological: Yes: Alert, Oriented (plce) Labs: CBC, BMP 04/13/17 05:25 04/15/17 06:35 INR, PTT INR 1.08 (0.82-1.09) 04/11/17 16:30 Problem List - Problems (1) Acute on chronic heart failure Code(s): I50.9 - HEART FAILURE, UNSPECIFIED Qualifiers: Heart failure type: unspecified heart failure type Qualified Code(s): I50.9 - Heart failure, unspecified (2) CAD S/P percutaneous coronary angioplasty Code(s): I25.10 - ATHSCL HEART DISEASE OF [place] CORONARY ARTERY W/O ANG PCTRS; Z98.61 - CORONARY ANGIOPLASTY STATUS (3) HTN (hypertension) Code(s): I10 - ESSENTIAL (PRIMARY) HYPERTENSION Qualifiers: Hypertension type: unspecified Qualified Code(s): I10 - Essential (primary ) hypertension (4) Chronic renal disease Code(s): N18.9 - CHRONIC KIDNEY DISEASE, UNSPECIFIED (5) Hyperlipidemia Code(s): E78.5 - HYPERLIPIDEMIA, UNSPECIFIED (6) Aortic stenosis Code(s): I35.0 - NONRHEUMATIC AORTIC (VALVE) STENOSIS (7) Mitral regurgitation Code(s): I34.0 - NONRHEUMATIC MITRAL (VALVE) INSUFFICIENCY (8) Pericardial effusion Code(s): I31.3 - PERICARDIAL EFFUSION (NONINFLAMMATORY) (9) Acute on chronic renal failure Code(s): N17.9 - ACUTE KIDNEY FAILURE, UNSPECIFIED; N18.9 - CHRONIC KIDNEY DISEASE, UNSPECIFIED (10) Back pain Code(s): M54.9 - DORSALGIA, UNSPECIFIED Assessment/Plan Lasix on hold, to monitor renal function. Creatinine is worse, per her nurse pt with minimal PO fluid intake; to start IVF Cardio consult appreciated; Admitted to Monitor bed. ECHO report was reviewed Tylenol PRN OOBTC- trial of Tylenol #3, efficient per her nurse. I encouraged pt ( pt's nurse is aware) to increase PO fluid intake. I spoke with her son, I recommended acute Rehab; he wants to take mother home, he is aware that his mother needs 24 hours care; he states that can do it and still wants to take her home. AM labs
[2017-04-15] MEDS ORDERED: SODIUM CHLORIDE 1,000 ML IV ONE (19:32)
[2017-04-16 07:17] LABS: ANION GAP 8 (8-16); CALCIUM 7.7 mg/dL (8.5-10.1); CO2 25 mmol/L (21-32); CREATININE 1.9 mg/dL (0.55-1.02); GLUCOSE,RANDOM 83 mg/dL (74-106)
[2017-04-16] MEDS: METHIMAZOLE 10 MG TABLET (FP) PO SCH (09:26)
[2017-04-16] MEDS: NIFEdipine E.R 60 MG TABLET (UD) PO SCH (09:26)
[2017-04-16] MEDS: ASPIRIN COATED 81 MG TABLET.EC PO SCH (09:26)
[2017-04-16] MEDS: METOPROLOL SUCCINATE 50 MG TAB.SR.24H (FP) PO SCH (09:26)
--- NOTE | 2017-04-16 10:40 | PN ---
Progress Note, Physician History of Present Illness: Pt w/o SOB, CP, palp, dizziness, abd pain. - Current Medication List Current Medications: Active Medications Acetaminophen (Tylenol -) 650 mg PO Q6H PRN PRN Reason: FEVER OR PAIN Last Admin: 04/14/17 08:44 Dose: 650 mg Acetaminophen/Codeine Phosphate (Tylenol # 3 -) 1 tab PO Q4H PRN PRN Reason: PAIN LEVEL 6-10 Last Admin: 04/14/17 23:00 Dose: 1 tab Aspirin (Ecotrin -) 81 mg PO DAILY [facility] Last Admin: 04/16/17 09:26 Dose: 81 mg Methimazole (Tapazole -) 10 mg PO DAILY [facility] Last Admin: 04/16/17 09:26 Dose: 10 mg Metoprolol Succinate (Toprol Xl -) 50 mg PO DAILY [facility] Last Admin: 04/16/17 09:26 Dose: 50 mg Nifedipine (Procardia Xl -) 60 mg PO DAILY [facility] Last Admin: 04/16/17 09:26 Dose: 60 mg - Objective Vital Signs: Vital Signs Temperature 98.1 F 04/16/17 06:00 Pulse Rate 66 04/16/17 06:00 Respiratory Rate 19 04/16/17 06:00 Blood Pressure 105/51 04/16/17 06:00 O2 Sat by Pulse Oximetry (%) 95 04/15/17 21:00 Constitutional: Yes: No Distress, Moderate Distress Cardiovascular: Yes: Regular Rate and Rhythm, S1, S2 Respiratory: Yes: Regular, CTA Bilaterally, Other (coarse at bases, atelectasis bilat at bases) Gastrointestinal: Yes: Normal Bowel Sounds, Soft. No: Tenderness Edema: No Neurological: Yes: Alert, Oriented Labs: CBC, BMP 04/13/17 05:25 04/16/17 06:30 INR, PTT INR 1.08 (0.82-1.09) 04/11/17 16:30 Problem List - Problems (1) Acute on chronic heart failure Code(s): I50.9 - HEART FAILURE, UNSPECIFIED Qualifiers: Heart failure type: unspecified heart failure type Qualified Code(s): I50.9 - Heart failure, unspecified (2) CAD S/P percutaneous coronary angioplasty Code(s): I25.10 - ATHSCL HEART DISEASE OF [place] CORONARY ARTERY W/O ANG PCTRS; Z98.61 - CORONARY ANGIOPLASTY STATUS (3) HTN (hypertension) Code(s): I10 - ESSENTIAL (PRIMARY) HYPERTENSION Qualifiers: Hypertension type: unspecified Qualified Code(s): I10 - Essential (primary ) hypertension (4) Chronic renal disease Code(s): N18.9 - CHRONIC KIDNEY DISEASE, UNSPECIFIED (5) Hyperlipidemia Code(s): E78.5 - HYPERLIPIDEMIA, UNSPECIFIED (6) Aortic stenosis Code(s): I35.0 - NONRHEUMATIC AORTIC (VALVE) STENOSIS (7) Mitral regurgitation Code(s): I34.0 - NONRHEUMATIC MITRAL (VALVE) INSUFFICIENCY (8) Pericardial effusion Code(s): I31.3 - PERICARDIAL EFFUSION (NONINFLAMMATORY) (9) Acute on chronic renal failure Code(s): N17.9 - ACUTE KIDNEY FAILURE, UNSPECIFIED; N18.9 - CHRONIC KIDNEY DISEASE, UNSPECIFIED (10) Back pain Code(s): M54.9 - DORSALGIA, UNSPECIFIED Assessment/Plan Lasix on hold, to monitor renal function. Creatinine is better, to cont encouraging PO fluid intake. Cardio consult appreciated; Admitted to Monitor bed. ECHO report was reviewed Tylenol PRN OOBTC- trial of Tylenol #3. I encouraged pt ( pt's nurse is aware) to increase PO fluid intake. AM labs. Case was d/w pt's son; possible DC tomorrow, pending labs( renal function)
--- NOTE | 2017-04-16 12:45 | PN ---
Progress Note (short form) - Note Progress Note: Chief Complaint: sob History of Present Illness: no sob (not leaving the bed) no cp no palpit, leg swelling ex cigs Current Medications Acetaminophen (Tylenol -) 650 mg PO Q6H PRN PRN Reason: FEVER OR PAIN Last Admin: 04/14/17 08:44 Dose: 650 mg Acetaminophen/Codeine Phosphate (Tylenol # 3 -) 1 tab PO Q4H PRN PRN Reason: PAIN LEVEL 6-10 Last Admin: 04/14/17 23:00 Dose: 1 tab Aspirin (Ecotrin -) 81 mg PO DAILY [facility] Last Admin: 04/16/17 09:26 Dose: 81 mg Methimazole (Tapazole -) 10 mg PO DAILY [facility] Last Admin: 04/16/17 09:26 Dose: 10 mg Metoprolol Succinate (Toprol Xl -) 50 mg PO DAILY [facility] Last Admin: 04/16/17 09:26 Dose: 50 mg Nifedipine (Procardia Xl -) 60 mg PO DAILY [facility] Last Admin: 04/16/17 09:26 Dose: 60 mg - Objective Vital Signs: Vital Signs - 24 hr 04/15/17 04/15/17 04/15/17 15:00 18:00 20:44 Temperature 98.1 F 97.9 F 98.2 F Pulse Rate 69 74 68 Respiratory 18 18 18 Rate Blood Pressure 119/58 126/62 122/56 O2 Sat by Pulse Oximetry (%) 04/15/17 04/16/17 04/16/17 21:00 00:00 06:00 Temperature 98.4 F 98.1 F Pulse Rate 76 66 Respiratory 20 19 Rate Blood Pressure 106/55 105/51 O2 Sat by Pulse 95 Oximetry (%) 04/16/17 10:00 Temperature 98 F Pulse Rate 68 Respiratory 20 Rate Blood Pressure 134/66 O2 Sat by Pulse Oximetry (%) Intake & Output 04/14/17 04/15/17 04/16/17 04/17/17 07:59 07:59 07:59 07:59 Intake Total 1410 1100 1240 Balance 1410 1100 1240 Weight 104 lb 8 oz 104 lb 9 oz Constitutional: Yes: No Distress, Calm Eyes: No: Sclera Icterus HENT: No: Nasal Congestion Cardiovascular: Yes: Regular Rate and Rhythm (soft sounds), Murmur (soft CHAVO rusb, no change (no S2 heard)), S1, S2, Other (PMI non diplaced). No: JVD, Gallop Respiratory: Yes: CTA Bilaterally, Rales (bases). No: Accessory Muscle Use, Wheezes Gastrointestinal: Yes: Normal Bowel Sounds, Soft. No: Tenderness Musculoskeletal: Yes: Other (No kyphosis) Extremities: No: Cold Edema: No Integumentary: No: Jaundice Neurological: Yes: Alert, Oriented (x3) Psychiatric: No: Agitated Labs: CBC, BMP 04/13/17 05:25 04/16/17 06:30 - ....Imaging EKG: Other (tele: NSR) Assessment/Plan ecg 04/11/17: sr, nl intervals, no ischemic changes cxr 04/11: chf changes (images reviewed: vascular redistribution seen, no pulm edema, ? small L effusion) Echo 04/05 (): nl LVSF mild LVH. nl RV. mod LAE. severe (reported gradients 71, 41 with PEDRO 0.6). mod MR. RVSP 30-40. small peric effusion a/p: 86 f hx htn, hld, hypothyroid, ckd, cad s/p 4 pci's (last was > 5 yrs ago) , here with sob, cp. sob, acute diastolic chf: -cxr with probable L effusion, incr interstitial markings vs 07/06 suspect interstitial edema -no signs acs, ce's negx3, ecg w/o ischemic changes -pt with congestion on cxr and crackles on exam -given test dose of iv lasix 40 04/12 -04/13: wt down 23 lbs overnight--suspect nurses aid error, continue to observe wt trend -no sob but remains in bed (was sob with activity at home) -creat bumped 1.3 to 1.9 today (quite variable creatinines in past here, 1.4-1.8 ) -lung exam abnormal--? ATX vs congestion -rpt CXR ordered yesterday--not done -doubt she remains volume up -04/14: wts very labile likely error involved here--today 105 (from 119 two days ago). creat up further 2.0 (bun too) -suspect sob with activity was related to or COPD, without signif volume on board -ex cigs, denies copd history, no wheezing--lung exam c/w copd -no further diuresis. gentle IVF today, would like to see creat trending down prior to discharge (though pt adamant she wants to go today, agrees to wait until tomorrow -04/15: wt stable. creat up further (2.3), no s/sx of chf--IVF started. - 04/16: cr improving s/p IVF. -echo images reviewed by me, critical likely: valve clearly is thickened with very reduced leaflet excursion. peak and mean gradients around 70 and 40. LVOT 1.7 cm on my measurement--PEDRO around 0.5. -d/w'd dr murray who agrees with outpt f/u to discuss TAVR--pt advised should f/ u with him within 1 week of hosp discharge cad s/p remote pci: - No suspected acs here, no angina. - con't home crestor, asa, bb, anti-anginals htn: -bp controlled -cont home meds CKD: - baseline range here in past 1.4-1.8 - rising --> improved s/p IVF. - daily labs STABLE FOR DISCHARGE
[2017-04-16] MEDS: ACETAMINOPHEN WITH CODEINE 300MG/30MG TABLET PO PRN (17:16)
[2017-04-17 07:52] LABS: ANION GAP 5 (8-16); CALCIUM 7.5 mg/dL (8.5-10.1); CO2 26 mmol/L (21-32); CREATININE 1.8 mg/dL (0.55-1.02); GLUCOSE,RANDOM 78 mg/dL (74-106)
[2017-04-17 08:21] VITALS: BP 135/66; PULSE 74; TEMP 98
[2017-04-17] MEDS: METHIMAZOLE 10 MG TABLET (FP) PO SCH (09:17)
[2017-04-17] MEDS: ASPIRIN COATED 81 MG TABLET.EC PO SCH (09:17)
[2017-04-17] MEDS: NIFEdipine E.R 60 MG TABLET (UD) PO SCH (09:17)
[2017-04-17] MEDS: ACETAMINOPHEN WITH CODEINE 300MG/30MG TABLET PO PRN (09:18)
[2017-04-17] MEDS: METOPROLOL SUCCINATE 50 MG TAB.SR.24H (FP) PO SCH (09:18)
--- NOTE | 2017-04-17 11:32 | DS ---
Physical Examination Vital Signs: Vital Signs Temperature 98 F 04/17/17 08:20 Pulse Rate 74 04/17/17 08:20 Respiratory Rate 20 04/17/17 08:20 Blood Pressure 135/66 04/17/17 08:20 O2 Sat by Pulse Oximetry (%) 96 04/17/17 08:00 Findings/Remarks: Pt w/o SOB, CP, palpitations, dizziness, abd pain. Pt states that has no back pain now and is not sure if had yesterday (per her nurse, Brittney, she needs Tylenol #3). Time spent for pt's care and DC : over 45 minutes Constitutional: Yes: No Distress, Calm Cardiovascular: Yes: Regular Rate and Rhythm, S1, S2 Respiratory: Yes: Regular, Rales (atelectasis and minimal crackle at bases, better with deep inspiration.) Gastrointestinal: Yes: Normal Bowel Sounds, Soft Edema: No Neurological: Yes: Alert, Oriented (to place, persons) Labs: CBC, BMP 04/13/17 05:25 04/17/17 05:05 Discharge Summary Reason For Visit: ACUTE ON CHRONIC HEART FAILURE Current Active Problems Acute on chronic heart failure (Acute) Acute on chronic renal failure (Acute) Aortic stenosis (Acute) Back pain (Acute) Mitral regurgitation (Acute) Pericardial effusion (Acute) Procedures: Principal: ECHO. CXR. L spiner XR Hospital Course: Pt came to ER with SOB, admitted to Telemetry for acute CHF exacerbation, received IV Lasix. Pt's breathing improved. Pt's renal function declined; Lasix was stopped, short course of IVF was given; renal function improved. Pt also c/ o back pain (developed at home, unclear trigger but no fall per patient) when moving; L spine XR shows compression deformity of L5; pt was given PRN Tylenol # 3. Pt had ECHO, noticed to have severe ; Dr. Mccray and Kimani agreed to set up TAVR evaluation as outpatient. Pt to be DC'ed today. I spoke with pt's son yesterday and today and I recommended acute rehab but he wants to take his mother home; he is aware that his mother need 24 hour care, but states that he was doing it already before this admission. Pt's son is aware that his mother needs to see Dr. Harman this week, to encourage his mother all the time to drink fluids, to come to my office for follow up. To DC pt home with VNS. Condition: Fair - Instructions Diet, Activity, Other Instructions: Diet: low salt, low cholesterol. Referrals: Arnaldo Torres MD [Primary Care Provider] - (within a week-call for appointment) Willis Harman MD [Staff Physician] - (this week-call for appointment) Disposition: HOME - Home Medications Comprehensive Discharge Medication List: Ambulatory Orders this list might NOT be acurate. Aspirin Coated [Ecotrin -] 81 mg PO DAILY tablet.ec 07/04/16 Metoprolol Succinate [Toprol XL -] 50 mg PO DAILY tab.sr.24h 07/04/16 Nifedipine [Nifedipine ER] 60 mg PO DAILY 12/11/16 Methimazole [Tapazole -] 10 mg PO DAILY 04/11/17
--- NOTE | 2017-04-17 11:39 | PN ---
Progress Note (short form) - Note Progress Note: History of Present Illness: no sob no cp no palpit, leg swelling ex cigs Current Medications Generic Name Dose Route Start Last Admin Trade Name Franklin PRN Reason Stop Dose Admin Acetaminophen 650 mg 04/12/17 20:24 04/14/17 08:44 Tylenol - PO 650 mg Q6H PRN Administration FEVER OR PAIN Acetaminophen/Codeine Phosphate 1 tab 04/14/17 13:15 04/17/17 09:18 Tylenol # 3 - PO 1 tab Q4H PRN Administration PAIN LEVEL 6-10 Aspirin 81 mg 04/12/17 10:00 04/17/17 09:17 Ecotrin - PO 81 mg DAILY [facility] Administration Methimazole 10 mg 04/12/17 10:00 04/17/17 09:17 Tapazole - PO 10 mg DAILY [facility] Administration Metoprolol Succinate 50 mg 04/12/17 10:00 04/17/17 09:18 Toprol Xl - PO 50 mg DAILY [facility] Administration Nifedipine 60 mg 04/12/17 10:00 04/17/17 09:17 Procardia Xl - PO 60 mg DAILY [facility] Administration - Objective Vital Signs: Vital Signs Period Temp Pulse Resp BP Sys/Salvador Pulse Ox Last 24 Hr 98 F-99.6 F 66-74 18-20 107-135/57-66 96-96 Constitutional: Yes: No Distress, Calm Eyes: No: Sclera Icterus HENT: No: Nasal Congestion Cardiovascular: Yes: Regular Rate and Rhythm (soft sounds), Murmur (soft CHAVO rusb, no change (no S2 heard)), S1, S2, Other (PMI non diplaced). No: JVD, Gallop Respiratory: Yes: CTA Bilaterally, Rales (bases). No: Accessory Muscle Use, Wheezes Gastrointestinal: Yes: Normal Bowel Sounds, Soft. No: Tenderness Musculoskeletal: Yes: Other (No kyphosis) Extremities: No: Cold Edema: No Integumentary: No: Jaundice Neurological: Yes: Alert, Oriented (x3) Psychiatric: No: Agitated Labs: CBC, BMP 04/13/17 05:25 04/17/17 05:05 - ....Imaging EKG: Other (tele: SR) ecg 04/11/17: sr, nl intervals, no ischemic changes cxr 04/11: chf changes (images reviewed: vascular redistribution seen, no pulm edema, ? small L effusion) Echo 04/05 (): nl LVSF mild LVH. nl RV. mod LAE. severe (reported gradients 71, 41 with PEDRO 0.6). mod MR. RVSP 30-40. small peric effusion a/p: 86 f hx htn, hld, hypothyroid, ckd, cad s/p 4 pci's (last was > 5 yrs ago) , here with sob, cp. sob, acute diastolic chf: -cxr with probable L effusion, incr interstitial markings vs 07/06 suspect interstitial edema -no signs acs, ce's negx3, ecg w/o ischemic changes -pt with congestion on cxr and crackles on exam -given test dose of iv lasix 40 04/12 -04/13: wt down 23 lbs overnight--suspect nurses aid error, continue to observe wt trend -no sob but remains in bed (was sob with activity at home) -creat bumped 1.3 to 1.9 today (quite variable creatinines in past here, 1.4-1.8 ) -lung exam abnormal--? ATX vs congestion -rpt CXR ordered yesterday--not done -doubt she remains volume up -04/14: wts very labile likely error involved here--today 105 (from 119 two days ago). creat up further 2.0 (bun too) -suspect sob with activity was related to or COPD, without signif volume on board -ex cigs, denies copd history, no wheezing--lung exam c/w copd -no further diuresis. gentle IVF today, would like to see creat trending down prior to discharge (though pt adamant she wants to go today, agrees to wait until tomorrow -04/15: wt stable. creat up further (2.3), no s/sx of chf--IVF started. - 04/16: cr improving s/p IVF. -echo images reviewed by me, critical likely: valve clearly is thickened with very reduced leaflet excursion. peak and mean gradients around 70 and 40. LVOT 1.7 cm on my measurement--PEDRO around 0.5. -d/w'd dr murray who agrees with outpt f/u to discuss TAVR--pt advised should f/ u with him within 1 week of hosp discharge cad s/p remote pci: - No suspected acs here, no angina. - con't home crestor, asa, bb, anti-anginals htn: -bp controlled -cont home meds CKD: - baseline range here in past 1.4-1.8 - rising --> improved s/p IVF. - daily labs cardiac davila stable for dc
== END 2017-04-17 14:41 | disposition home or self-care (01) | DRG 291 ==
LOC: JER 15:37 → JERBED 18:46 → J4W 21:36
PROVIDERS: ADMIT Specialist; ATTEND Specialist
DX: I13.0 Hypertensive heart and chronic kidney disease with heart failure and stage 1 through stage 4 chronic kidney disease, or unspecified chronic kidney disease (principal); I50.33 Acute on chronic diastolic (congestive) heart failure; N17.9 Acute kidney failure, unspecified; N18.9 Chronic kidney disease, unspecified; E03.9 Hypothyroidism, unspecified; E78.00 Pure hypercholesterolemia, unspecified; I25.10 Atherosclerotic heart disease of native coronary artery without angina pectoris; Z95.5 Presence of coronary angioplasty implant and graft; Z87.891 Personal history of nicotine dependence; I35.0 Nonrheumatic aortic (valve) stenosis
CPT/HCPCS: 36415; 36600; 71010-TC; 72100-TC; 80048; 80053; 80061; 81003; 81015; 82375; 82550; 82803; 83036; 83050; 83721; 83735; 83880; 84100; 84484; 85025; 85027; 85610; 93005; 93010; 93306-TC; 97116-GP; 97161-GP; 99285-25